=== PATIENT | male | born 1950 | race Hispanic/Latino ===

== ENCOUNTER 2016-11-30 18:04 | Emergency (ER) | payer MEDICAID, OTHER ==
[2016-11-30 18:05] VITALS: PULSE 62; BMI 25.8
[2016-11-30 18:21] VITALS: TEMP 97.6
[2016-11-30] MEDS ORDERED: Sodium Chloride 0.9% 1,000 ML IV STA (18:54)
--- NOTE | 2016-11-30 18:59 | ED PDOC ---
Arrival/HPI - General Chief Complaint: Lower Extremity Problem/Injury Time Seen by Provider: 11/30/16 18:31 Historian: Patient - History of Present Illness Narrative History of Present Illness (Text): 11/30/16 18:56 Patient with past medical history of stage IV lung cancer and has never sought any type of medical treatment, reports generalized weakness since yesterday causing him to trip and fall down the stairs prior to arrival. Patient is concerned that he may have injured his legs. Otherwise: (-) lightheadedness, (- ) dizziness, (-) headache, (-) head injury, (-) LOC, (-) neck pain / back pain, (-) other injury, (-) tinnitus, (-) hearing loss, (-) chest pain, (-) dyspnea, ( -) fever, (-) vomiting, (-) diarrhea, (-) syncope, (-) urinary symptoms, (-) GI bleeding. Of note, patient admits that he is a chronic alcoholic and drinks daily, last alcohol was today. ILDA Doyle Past Medical History - Provider Review Nursing Documentation Reviewed: Yes - Infectious Disease Hx of Infectious Diseases: None - Tetanus Immunization Tetanus Immunization: Unknown - Past Medical History Past Medical History: No Previous - Cardiac Hx Cardiac Disorders: Yes Hx Angina: Yes Hx Cardiac Arrhythmia: Yes (A Fib.) Hx Congestive Heart Failure: Yes Hx Hypertension: Yes Hx Peripheral Edema: Yes Other/Comment: [place] [facility] with aortic valve replacement and conduit - Pulmonary Hx Respiratory Disorders: Yes Hx Bronchitis: Yes Hx Chronic Obstructive Pulmonary Disease (COPD): Yes - Neurological Hx Neurological Disorder: Yes HX Cerebrovascular Accident: Yes Hx Dizziness: Yes Hx Seizures: Yes (ETOH INDUCED) Hx Transient Ischemic Attacks (TIA): Yes Other/Comment: subdural hematoma - HEENT Hx HEENT Disorder: No (WEARS RX GLASSES) - Renal Hx Renal Disorder: Yes Hx Renal Cancer: Yes - Endocrine/Metabolic Hx Endocrine Disorders: No - Hematological/Oncological Hx Blood Disorders: Yes (blood transfusion) Hx Anemia: Yes Hx Cancer: Yes (RENAL CA-NEPHRECTOMY, left) Other/Comment: left kidney tumor - Integumentary Hx Dermatological Disorder: Yes (Biopsy of skin lesion on face) - Musculoskeletal/Rheumatological Hx Falls: Yes (in the past) - Gastrointestinal Hx Gastrointestinal Disorders: Yes (gi bleed) Hx Gastroesophageal Reflux: Yes Other/Comment: diverticulosis, colon polyps endo 10/14/15 - Genitourinary/Gynecological Hx Genitourinary Disorders: Yes (LEFT KIDNEY TUMOR) Hx Prostate Problems: Yes Other/Comment: scrotal hematoma, left hydrocelectomy, pt had large hydrocele, denies voiding problems - Psychiatric Hx Psychophysiologic Disorder: Yes (SMOKING CIGARETTES,BEER DRINKER,H/O RX DRUG ABUSE) Hx Anxiety: Yes Hx Emotional Abuse: No Hx Physical Abuse: No Hx Substance Use: No - Past Surgical History Past Surgical History: Non-Contributing - Surgical History Hx Cardiac Catheterization: Yes Hx Valve Replacement: Yes (aortic) - Anesthesia Hx Anesthesia: Yes Hx Anesthesia Reactions: No Hx Malignant Hyperthermia: No - Suicidal Assessment Feels Threatened In Home Enviroment: No Family/Social History - Physician Review Nursing Documentation Reviewed: Yes Family/Social History: No Known Family HX Smoking Status: Heavy Smoker > 10 Cigarettes Daily Hx Alcohol Use: Yes (beer social) Hx Substance Use: No Hx Substance Use Treatment: No Allergies/Home Meds Allergies/Adverse Reactions: Allergies acetaminophen Allergy (Verified 11/30/16 18:10) ITCHING iodine Allergy (Verified 11/30/16 18:10) ITCHING shellfish derived Allergy (Verified 11/30/16 18:10) RASH Home Medications: Home Meds Medication Instructions Recorded Confirmed Simvastatin [Zocor] 40 mg PO DAILY #0 10/11/15 11/30/16 Review of Systems - Review of Systems Constitutional: Normal, Fatigue (generalized weakness). absent: Weight Change, Fevers Respiratory: Normal. absent: SOB, Cough, Sputum Cardiovascular: Normal. absent: Chest Pain, Palpitations, Edema Gastrointestinal: Normal, Diarrhea (chronic diarrhea). absent: Abdominal Pain, Stool Changes Musculoskeletal: Normal. absent: Arthralgias, Back Pain, Neck Pain Skin: Normal. absent: Rash, Pruritis, Skin Lesions Neurological: Normal. absent: Headache, Dizziness, Focal Weakness Psychiatric: Normal. absent: Anxiety, Depression, Suicidal Ideation Physical Exam - Physical Exam Narrative Physical Exam (Text): 11/30/16 19:00 GENERAL APPEARANCE: Patient is awake, alert, oriented x 3, in no acute distress. (+) Strong odor of etoh. SKIN: Warm, dry; (-) cyanosis. EYES: (-) conjunctival pallor. ENMT: Mucous membranes dry. NECK: (-) tenderness, (-) stiffness, (-) lymphadenopathy, (-) JVD. CHEST AND RESPIRATORY: (-) rash, (-) chest wall tenderness. Lungs: (-) rales , (-) rhonchi, (-) wheezes, (-) rub; breath sounds equal bilaterally. HEART AND CARDIOVASCULAR: (-) irregularity; (-) murmur, (-) gallop, (-) rub. ABDOMEN AND GI: Soft; (-) distention, (-) tenderness, (-) palpable pulsatile mass. EXTREMITIES: (-) tenderness, (-) deformity; (-) edema, (-) calf tenderness. (+) FROM, (+) distal pulses. NEURO AND PSYCH: Mental status as above. Cranial nerves grossly intact; strength symmetric. 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 Plan: -- Labs -- IV fluids -- Urinalysis -- EKG -- CXR -- Reassess and disposition 11/30/16 21:29 EKG: A fib at 55 bpm (-) acute ST changes, compared to prior EKGs which showed A fib on 03/2016. CXR: NAD, as read by PA. Labs reviewed, Na is 131, NS bolus IV given, rest of the labs are wnl. On re-evaluation, patient remains awake, alert and oriented x3, in no acute distress. Patient reports no fever, chills, SOB, chest pain, abdominal pain, N/V /D. States that he feels much better. VS: P 64 BP 123/75 R 18. Diagnostic results d/w the patient in great detail. Based on history, exam and diagnostic results plan will be for outpatient follow -up. Patient able to stand and ambulate with a steady gait. Patient states he fully agrees with and understands discharge instructions. States that he agrees with the plan and disposition. Verbalized and repeated discharge instructions and plan. I have given the patient opportunity to ask any additional questions. Follow up with primary care physician in 1-2 days without fail. Return to the emergency room at any time for any new or worsening symptoms. - Lab Interpretations Microbiology Results: Microbiology Results 11/30/16 18:58 Urine Urine Culture - Preliminary No growth. Lab Results: 11/30/16 19:38 11/30/16 19:38 Lab Results 11/30/16 19:38: Sodium 131 L, Potassium 4.1, Chloride 100, Carbon Dioxide 21, Anion Gap 14, BUN 11, Creatinine 0.9, Est GFR ( Amer) > 60, Est GFR (Non- Af Amer) > 60, Random Glucose 94, Calcium 8.3 L, Total Bilirubin 0.4, AST 40, ALT 46, Alkaline Phosphatase 61, Total Protein 6.9, Albumin 4.1, Globulin 2.8, Albumin/Globulin Ratio 1.5 11/30/16 19:38: WBC 5.3 D, RBC 3.94, Hgb 12.9 L, Hct 35.3 L, MCV 89.6, MCH 32.7 , MCHC 36.5, RDW 14.1, Plt Count 195, MPV 9.2, Gran % 64.6, Lymph % (Auto) 24.5 , [place] % (Auto) 9.2 H, Eos % (Auto) 1.5, Baso % (Auto) 0.2, Gran # 3.45, Lymph # 1.3, [place] # 0.5, Eos # 0.1, Baso # 0.01 11/30/16 18:58: Urine Color Yellow, Urine Appearance Clear, Urine pH 6.0, Ur Specific [place] 1.010, Urine Protein Trace H, Urine Glucose (UA) Negative, Urine Ketones Negative, Urine Blood Trace-lysed H, Urine Nitrate Negative, Urine Bilirubin Negative, Urine Urobilinogen 0.2, Ur Leukocyte Esterase Negative , Urine RBC 0 - 2, Urine WBC 0 - 2, Ur Epithelial Cells None, Urine Bacteria Small - RAD Interpretation Radiology Orders: 11/30/16 18:53 CHEST TWO VIEWS (PA/LAT) [RAD] Stat - Medication Orders Current Medication Orders: Discontinued Medications Sodium Chloride (Sodium Chloride 0.9%) 1,000 mls @ 1,000 mls/hr IV .Q1H STA Stop: 11/30/16 19:53 Last Admin: 11/30/16 20:40 Dose: 1,000 mls/hr - PA / TRUCK TRAILER FINAL INSPECTOR / Resident Statement / has reviewed & agrees with the documentation as recorded. Disposition/Present on Arrival - Present on Arrival Any Indicators Present on Arrival: No History of DVT/PE: No History of Uncontrolled Diabetes: No Urinary Catheter: No History of Decub. Ulcer: No History Surgical Site Infection Following: None - Disposition Have Diagnosis and Disposition been Completed?: Yes Diagnosis: Weakness, Dehydration, Fall, Alcohol intoxication Disposition: HOME/ ROUTINE Disposition Time: 21:00 Patient Plan: Discharge Condition: GOOD Discharge Instructions (ExitCare): Weakness (ED) Print Language: [place] Additional Instructions: Thank you for letting us take care of you today. You were treated for generalized weakness, fall, dehydration, alcohol intoxication. The emergency medical care you received today was directed at your acute symptoms. Return to the Emergency Department if your symptoms worsen, do not improve, or if you have any other problems. Please contact your doctor in 2 days for re-evaluation and follow up. Bring any paperwork you were given at discharge with you along with any medications you are taking to your follow up visit. Our treatment cannot replace ongoing medical care by a primary care provider (PCP) outside of the emergency department. Thank you for allowing the [facility] team to be part of your care today.
[2016-11-30 19:10] LABS: URINE BILIRUBIN NEGATIVE (NEGATIVE); URINE BLOOD TRACE-LYSED (NEGATIVE); URINE GLUCOSE (UA) NEGATIVE (NEGATIVE); URINE KETONE NEGATIVE (NEGATIVE); URINE LEUKOCYTE ESTERASE NEGATIVE Leu/uL (NEGATIVE); URINE PROTEIN TRACE mg/dL (<30 mg/dL); URINE UROBILINOGEN 0.2 E.U./dL (<1 E.U./dL)
[2016-11-30 19:11] LABS: URINE APPEARANCE CLEAR (CLEAR); URINE COLOR YELLOW (YELLOW)
[2016-11-30 19:33] LABS: URINE BACTERIA SMALL (NEG); URINE RBC 0 - 2 /hpf (0-2); URINE WBC 0 - 2 /hpf (0-6)
[2016-11-30 19:44] LABS: ADD MANUAL DIFF? NO
[2016-11-30 19:56] LABS: ALB/GLOB RATIO 1.5 (1.1-1.8); ALKALINE PHOSPHATASE 61 U/L (38-133); ALT/SGPT 46 U/L (7-56); AST/SGOT 40 U/L (15-59); BILIRUBIN,TOTAL 0.4 mg/dL (0.2-1.3); BLOOD UREA NITROGEN 11 mg/dL (7-21); CALCIUM 8.3 mg/dL (8.4-10.5); CARBON DIOXIDE 21 mmol/L (21-33); CHLORIDE 100 mmol/L (98-107); GFR AFRICAN-AMERICAN > 60; GLUCOSE,RANDOM 94 mg/dL (70-110); POTASSIUM 4.1 mmol/L (3.6-5.0); SODIUM 131 mmol/L (132-148); TOTAL PROTEIN 6.9 g/dL (5.8-8.3)
[2016-11-30 20:19] LABS: BASO # 0.01 K/mm3 (0.0-2.0); BASO % 0.2 % (0.0-3.0); EOS # 0.1 (0.0-0.7); EOS % 1.5 % (1.5-5.0); GRAN # 3.45 (1.4-6.5); GRAN % 64.6 % (50.0-68.0); HEMATOCRIT 35.3 % (42.0-52.0); LYMPH # 1.3 (1.2-3.4); LYMPH % 24.5 % (22.0-35.0); MEAN CELL VOLUME 89.6 fL (80.0-105.0); MEAN CORPUSCULAR HEMOGLOBIN 32.7 pg (25.0-35.0); MEAN CORPUSCULAR HGB CONC 36.5 g/dl (31.0-37.0); MEAN PLATELET VOLUME 9.2 fl (7.0-11.0); MONO # 0.5 (0.1-0.6); MONO % 9.2 % (1.0-6.0); PLATELET COUNT 195 10^3/uL (120.0-450.0); RED CELL DISTRIBUTION WIDTH 14.1 % (11.5-14.5); WHITE BLOOD COUNT 5.3 10^3/ul (4.5-11.0)
[2016-12-01 01:41] VITALS: RESP 16
[2016-12-01 04:19] VITALS: BP 146/87; PULSE 88; O2SAT 94
--- NOTE | 2016-12-01 10:03 | RAD ---
HISTORY: weakness COMPARISON: No prior. TECHNIQUE: Chest PA and lateral FINDINGS: LUNGS: No active pulmonary disease. PLEURA: No significant pleural effusion identified. No pneumothorax apparent. CARDIOVASCULAR: Normal. OSSEOUS STRUCTURES: No significant abnormalities. VISUALIZED UPPER ABDOMEN: Normal. OTHER FINDINGS: None. IMPRESSION: No active disease.
--- NOTE | 2016-12-01 15:52 | CARD ---
APPROVED REPORT EKG Measurement Heart [id number] <Conclusion> Atrial fibrillation with slow ventricular response Nonspecific intraventricular conduction delay T wave abnormality, consider lateral ischemia or digitalis effect Abnormal ECG
== END 2016-12-01 04:20 | disposition home or self-care (01) ==
LOC: ED 18:04
DX: E86.0 Dehydration (principal); R53.1 Weakness; F10.129 Alcohol abuse with intoxication, unspecified; Y90.9 Presence of alcohol in blood, level not specified; W10.8XXA Fall (on) (from) other stairs and steps, initial encounter; Y93.89 Activity, other specified; Y92.89 Other specified places as the place of occurrence of the external cause; Z85.118 Personal history of other malignant neoplasm of bronchus and lung; I10 Essential (primary) hypertension; F17.210 Nicotine dependence, cigarettes, uncomplicated
CPT/HCPCS: 71020; 80053; 81001; 85025; 87086; 93005; 99285; J7040

== ENCOUNTER 2017-03-04 10:54 | Emergency (ER) | payer MEDICAID, OTHER ==
[2017-03-04 10:55] VITALS: PULSE 62
[2017-03-04 10:59] VITALS: BMI 26.5
[2017-03-04 11:02] VITALS: RESP 18; TEMP 98.3
[2017-03-04] MEDS ORDERED: Iohexol 240 (50 ml) ONE (11:43)
--- NOTE | 2017-03-04 12:01 | ED PDOC ---
Arrival/HPI - General Historian: Patient <Lobito Peterson - Last Filed: 03/04/17 17:07> <Zachary Cam DO - Last Filed: 03/04/17 22:13> - General Chief Complaint: Groin Pain Time Seen by Provider: 03/04/17 11:00 - History of Present Illness Narrative History of Present Illness (Text): 03/04/17 11:51 66 M with PMHx pertinent for A-Fib on coumadin and Renal Cell CA s/p nephrectomy metastatic to the bones and lung presents s/p a fall with R sided, sharp, non-radiating, 6/10 inguinal pain of 3 days duration. Patient states that nothing makes the pain better or worse but that he hasn't taken anything for the pain at home. Patient further states that the pain started abruptly without a precipitating factor. Patient states that he does not remember when he fell, but denies hitting his head or losing consciousness, and states that the pain in his inguinal region precipitated his fall. Pt denies changes in bowels, hematuria, hematochezia, cp/sob/n/v/d/f/ch. Patient does state that he feels like he has not completely evacuated his bladder. Pt denies any further complaints. (Lobito Peterson Alessandropam) Past Medical History - Provider Review Nursing Documentation Reviewed: Yes - Infectious Disease Hx of Infectious Diseases: None - Tetanus Immunization Tetanus Immunization: Unknown - Past Medical History Past Medical History: No Previous - Cardiac Hx Cardiac Disorders: Yes Hx Angina: Yes Hx Cardiac Arrhythmia: Yes (A Fib.) Hx Congestive Heart Failure: Yes Hx Hypertension: Yes Hx Peripheral Edema: Yes Other/Comment: [place], cabd - aortic valve replacement and conduit - Pulmonary Hx Respiratory Disorders: Yes Hx Bronchitis: Yes Hx Chronic Obstructive Pulmonary Disease (COPD): Yes - Neurological Hx Neurological Disorder: Yes HX Cerebrovascular Accident: Yes Hx Dizziness: Yes Hx Seizures: Yes (ETOH INDUCED) Hx Transient Ischemic Attacks (TIA): Yes Other/Comment: subdural hematoma - HEENT Hx HEENT Disorder: No (WEARS RX GLASSES) - Renal Hx Renal Disorder: Yes Hx Renal Cancer: Yes - Endocrine/Metabolic Hx Endocrine Disorders: No - Hematological/Oncological Hx Blood Disorders: Yes (blood transfusion) Hx Anemia: Yes Hx Cancer: Yes (RENAL CA-NEPHRECTOMY, left) Other/Comment: left kidney tumor. LUNG CANCER - Integumentary Hx Dermatological Disorder: Yes (Biopsy of skin lesion on face) - Musculoskeletal/Rheumatological Hx Falls: Yes (in the past) - Gastrointestinal Hx Gastrointestinal Disorders: Yes (gi bleed) Hx Gastroesophageal Reflux: Yes Other/Comment: diverticulosis, colon polyps endo 10/14/15 - Genitourinary/Gynecological Hx Genitourinary Disorders: Yes (LEFT KIDNEY TUMOR) Hx Prostate Problems: Yes Other/Comment: scrotal hematoma, left hydrocelectomy, pt had large hydrocele, denies voiding problems - Psychiatric Hx Psychophysiologic Disorder: Yes (SMOKING CIGARETTES,BEER DRINKER,H/O RX DRUG ABUSE) Hx Anxiety: Yes Hx Emotional Abuse: No Hx Physical Abuse: No Hx Substance Use: No - Past Surgical History Past Surgical History: Non-Contributing - Surgical History Hx Cardiac Catheterization: Yes Hx Valve Replacement: Yes (aortic) - Anesthesia Hx Anesthesia: Yes Hx Anesthesia Reactions: No Hx Malignant Hyperthermia: No - Suicidal Assessment Feels Threatened In Home Enviroment: No <Lobito Peterson - Last Filed: 03/04/17 17:07> Family/Social History - Physician Review Nursing Documentation Reviewed: Yes Family/Social History: Unknown Family HX Smoking Status: Heavy Smoker > 10 Cigarettes Daily Hx Alcohol Use: Yes (beer social) Hx Substance Use: No Hx Substance Use Treatment: No <Lobito Peterson - Last Filed: 03/04/17 17:07> Allergies/Home Meds <Lobito Peterson - Last Filed: 03/04/17 17:07> <Zachary Cam DO - Last Filed: 03/04/17 22:13> Allergies/Adverse Reactions: Allergies acetaminophen Allergy (Verified 03/04/17 10:59) ITCHING iodine Allergy (Verified 03/04/17 10:59) ITCHING shellfish derived Allergy (Verified 03/04/17 10:59) RASH Home Medications: Home Meds Medication Instructions Recorded Confirmed Simvastatin [Zocor] 40 mg PO DAILY #0 10/11/15 03/04/17 Review of Systems - Physician Review All systems were reviewed & negative as marked: Yes - Review of Systems Constitutional: Normal. absent: Fatigue, Weight Change, Fevers Eyes: Normal. absent: Vision Changes, Photophobia, Eye Pain ENT: Normal. absent: Hearing Changes, Tinnitus, TMJ Pain Respiratory: Normal. absent: SOB, Cough, Sputum Cardiovascular: Normal. absent: Chest Pain, Palpitations, Calf Pain, DELUCA Gastrointestinal: Normal. absent: Abdominal Pain, Diarrhea, Nausea, Vomiting Genitourinary Male: Urinary Output Changes. absent: Dysuria, Frequency, Hematuria (Patient is complaining of L sided inguinal pain, states he feels like he cannot completely evacuate his bladder) Musculoskeletal: Arthralgias (Patient states he has chronic pain in his right hip), Joint Swelling. absent: Back Pain Skin: Normal. absent: Rash, Pruritis, Skin Lesions Neurological: Normal. absent: Headache, Dizziness, Focal Weakness Endocrine: Normal. absent: Diaphoresis, Polyuria Hemo/Lymphatic: Normal. absent: Adenopathy, Easy Bleeding, Easy Bruising Psychiatric: Normal. absent: Depression, Suicidal Ideation <Lobito Petersonpam - Last Filed: 03/04/17 17:07> Physical Exam Vital Signs Reviewed: Yes Temperature: Afebrile Blood Pressure: Hypertensive Pulse: Regular Respiratory Rate: Normal Appearance: Positive for: Well-Appearing, Non-Toxic, Comfortable Pain Distress: None Mental Status: Positive for: Alert and Oriented X 3 - Systems Exam Head: Present: Atraumatic, Normocephalic. No: Tenderness, Contusion Pupils: Present: PERRL. No: Sluggish, Non-Reactive, Pinpoint Extroacular Muscles: Present: EOMI. No: Gaze Palsy, Entrapment Conjunctiva: Present: Normal. No: Injected, Icteric Ears: Present: Normal, NORMAL TM. No: Erythema, TM Bulging Mouth: Present: Moist Mucous Membranes. No: Dry, Drooling Pharnyx: Present: Normal. No: ERYTHEMA, EXUDATE Nose (External): Present: Atraumatic. No: Abrasion, Contusion Neck: Present: Normal Range of Motion. No: Meningeal Signs, MIDLINE TENDERNESS Respiratory/Chest: Present: Clear to Auscultation, Good Air Exchange. No: Respiratory Distress, Accessory Muscle Use, Wheezes, Rales, Rhonchi Cardiovascular: Present: Regular Rate and Rhythm, Murmurs (Systolic click murmur - heard in all auscultatory areas), Normal S1, S2. No: Irregular Rhythm , Tachycardic, Bradycardic Abdomen: Present: Normal Bowel Sounds. No: Tenderness, Distention, Peritoneal Signs, Rebound, Guarding Back: Present: Normal Inspection. No: CVA Tenderness, Midline Tenderness Upper Extremity: Present: Normal Inspection, Normal ROM. No: Cyanosis, Edema Lower Extremity: Present: Normal Inspection, NORMAL PULSES, Normal ROM (pain limited ROM (pain in inguinal region on L side when raises L extremity)). No: Edema, CALF TENDERNESS Neurological: Present: GCS=15, CN II-XII Intact, Speech Normal Skin: Present: Warm, Normal Color. No: Rashes, Abrasion Lymphatic: No: Cervical Adenopathy, Axillary Adenopathy Psychiatric: Present: Alert, Oriented x 3, Normal Insight, Normal Concentration , Normal Affect. No: Suicidal Ideation, Homicidal Ideation <Lobito Peterson - Last Filed: 03/04/17 17:07> Medical Decision Making <Lobito Peterson - Last Filed: 03/04/17 17:07> - Lab Interpretations I have reviewed the lab results: Yes - RAD Interpretation Marine Biologist: Radiologist <Zachary Cam DO - Last Filed: 03/04/17 22:13> ED Course and Treatment: Assessed 03/04/17 11:50 Impression: 66 M PMHx pertinent for A-Fib on coumadin and Bone Mets presents with pain in L inguinal region precipitating a fall Plan - CT Head, CT Abd Pelvis with PO contrast, C-Spine XR - CMP, CBC, Coags - UA - Toradol for pain Reassessed 03/04/17 11:50 - UA is negative for UTI - CBC shows Hgb normal, HCT near baseline - Coags show INR subtherapeutic - CMP unremarkable Reassessed 03/04/17 13:39 - Pt feels better after Toradol, but is still having pain Reassessed 03/04/17 15:36 - CT Abd/Pelvis, CT Head, and XR C-Spine show no acute changes - Results of CT Abdomen d/w Dr. Doyle, PMD. Dr. Doyle stated that he and patient are both aware of the metastastic disease, and that patient is good to follow up. No inpatient intervention needed Reassessed 03/04/17 16:06 - Patient still complaining of pain - 1 mg of morphine given. Will send patient home with a cane. (Lobito Peterson) 03/04/17 In agreement with resident note, which includes further HPI details. Patient was seen and evaluated with resident, came up with plan and treatment together. (Zachary Cam DO) - Lab Interpretations Lab Results: 03/04/17 12:04 03/04/17 12:04 Lab Results 03/04/17 12:04: Sodium 139, Potassium 4.1, Chloride 104, Carbon Dioxide 25, Anion Gap 14, BUN 18, Creatinine 1.0, Est GFR ( Amer) > 60, Est GFR (Non- Af Amer) > 60, Random Glucose 111 H, Calcium 9.8, Total Bilirubin 0.8, AST 35, ALT 45, Alkaline Phosphatase 83, Total Protein 7.2, Albumin 4.4, Globulin 2.8, Albumin/Globulin Ratio 1.6 03/04/17 12:04: PT 14.9 H, INR 1.38 H, APTT 34.1 H 03/04/17 12:04: WBC 7.4 D, RBC 4.28, Hgb 14.0, Hct 39.2 L, MCV 91.6, MCH 32.7, MCHC 35.7, RDW 13.8, Plt Count 210, MPV 9.5, Gran % 74.7 H, Lymph % (Auto) 17.2 L, [place] % (Auto) 6.2 H, Eos % (Auto) 1.6, Baso % (Auto) 0.3, Gran # 5.50, Lymph # 1.3, [place] # 0.5, Eos # 0.1, Baso # 0.02 03/04/17 11:54: Urine Color Yellow, Urine Appearance Clear, Urine pH 6.0, Ur Specific [place] 1.015, Urine Protein Negative, Urine Glucose (UA) Negative, Urine Ketones Negative, Urine Blood Negative, Urine Nitrate Negative, Urine Bilirubin Negative, Urine Urobilinogen 0.2, Ur Leukocyte Esterase Negative - RAD Interpretation Radiology Orders: 03/04/17 11:34 ABD & PELVIS PO CONTRAST ONLY [CT] Stat HEAD W/O CONTRAST [CT] Stat 03/04/17 11:45 CERVICAL SPINE AP & LATERAL [RAD] Stat - Medication Orders Current Medication Orders: Discontinued Medications Iohexol (Omnipaque 240 (50 Ml)) Confirm Administered Dose 50 ml .ROUTE .[employer] ONE Stop: 03/04/17 11:44 Ketorolac Tromethamine (Toradol) 15 mg IM STAT STA Stop: 03/04/17 12:21 Last Admin: 03/04/17 12:43 Dose: 15 mg Re-Assess: KT Pain Assessment Document 03/04/17 13:43 HI (Rec: 03/04/17 15:38 [place] [facility] [id number] Pain Reassessment Is this a pain reassessment? Yes Sleep Is patient sleeping during reassessment? Yes Morphine Sulfate (Morphine) 1 mg IM STAT STA Stop: 03/04/17 15:52 Last Admin: 03/04/17 16:09 Dose: 1 mg <Lobito Peterson - Last Filed: 03/04/17 17:07> - PA / SOCIAL SERVICES COORDINATOR / Resident Statement ANGELIC has reviewed & agrees with the documentation as recorded. / has examined the patient and agrees with the treatment plan. - Scribe Statement The provider has reviewed the documentation as recorded by the Scribe <Zachary Cam DO - Last Filed: 03/04/17 22:13> - Scribe Statement 03/04/2017 Christianne Stewart Provider Scribe Attestation: All medical record entries made by the Scribe were at my direction and personally dictated by me. I have reviewed the chart and agree that the record accurately reflects my personal performance of the history, physical exam, medical decision making, and the department course for this patient. I have also personally directed, reviewed, and agree with the discharge instructions and disposition. (Zachary Cam DO) Disposition/Present on Arrival - Present on Arrival Any Indicators Present on Arrival: No History of DVT/PE: No History of Uncontrolled Diabetes: No Urinary Catheter: No History of Decub. Ulcer: No History Surgical Site Infection Following: None - Disposition Have Diagnosis and Disposition been Completed?: Yes Disposition Time: 16:45 <Lobito Peterson - Last Filed: 03/04/17 17:07> - Disposition Disposition Time: 15:00 <Zachary Cam DO - Last Filed: 03/04/17 22:13> - Disposition Diagnosis: Inguinal pain Disposition: HOME/ ROUTINE Condition: IMPROVED Additional Instructions: Mr. Sparrow, thank you for letting us take care of you today. Your providers were Dr. Cam and Dr. Peterson. You were treated for inguinal pain. The emergency medical care you received today was directed at your acute symptoms. If you were prescribed any medication, please fill it and take as directed. It may take several days for your symptoms to resolve. Return to the Emergency Department if your symptoms worsen, do not improve, or if you have any other problems. Please contact your doctor or call one of the physicians/clinics you have been referred to that are listed on the Patient Visit Information form that is included in your discharge packet. Bring any paperwork you were given at discharge with you along with any medications you are taking to your follow up visit. Our treatment cannot replace ongoing medical care by a primary care provider (PCP) outside of the emergency department. Thank you for allowing the [facility] team to be part of your care today. If you had an X-Ray or CT scan: A Radiologist will review the ED reading if any change in treatment is needed we will contact you. If you had a blood, urine, or wound culture: It will take several days for the results, if any change in treatment is needed we will contact you. If you had an STI test: It will take 48 hours for the results. Please call after 1 week if you have not heard back. Referrals: Andrzej Doyle JD, MD [Primary Care Provider] - Follow up with primary Forms: [employer] (Iranian)
[2017-03-04 12:05] LABS: URINE BILIRUBIN NEGATIVE (NEGATIVE); URINE BLOOD NEGATIVE (NEGATIVE); URINE GLUCOSE (UA) NEGATIVE (NEGATIVE); URINE KETONE NEGATIVE (NEGATIVE); URINE LEUKOCYTE ESTERASE NEGATIVE Leu/uL (NEGATIVE); URINE PROTEIN NEGATIVE mg/dL (<30 mg/dL); URINE UROBILINOGEN 0.2 E.U./dL (<1 E.U./dL)
[2017-03-04 12:06] LABS: URINE APPEARANCE CLEAR (CLEAR); URINE COLOR YELLOW (YELLOW)
[2017-03-04 12:09] LABS: BASO # 0.02 K/mm3 (0.0-2.0); BASO % 0.3 % (0.0-3.0); EOS # 0.1 (0.0-0.7); EOS % 1.6 % (1.5-5.0); GRAN # 5.5 (1.4-6.5); GRAN % 74.7 % (50.0-68.0); HEMATOCRIT 39.2 % (42.0-52.0); LYMPH # 1.3 (1.2-3.4); LYMPH % 17.2 % (22.0-35.0); MEAN CELL VOLUME 91.6 fl (80.0-105.0); MEAN CORPUSCULAR HEMOGLOBIN 32.7 pg (25.0-35.0); MEAN CORPUSCULAR HGB CONC 35.7 g/dl (31.0-37.0); MEAN PLATELET VOLUME 9.5 fl (7.0-11.0); MONO # 0.5 (0.1-0.6); MONO % 6.2 % (1.0-6.0); RED CELL DISTRIBUTION WIDTH 13.8 % (11.5-14.5); WHITE BLOOD COUNT 7.4 10^3/ul (4.5-11.0)
[2017-03-04 12:19] LABS: INR 1.38 (0.93-1.08); PARTIAL THROMBOPLASTIN TIME 34.1 Seconds (23.7-30.8)
[2017-03-04 12:38] LABS: ALB/GLOB RATIO 1.6 (1.1-1.8); ALKALINE PHOSPHATASE 83 U/L (38-126); ALT/SGPT 45 U/L (7-56); AST/SGOT 35 U/L (17-59); BILIRUBIN,TOTAL 0.8 mg/dL (0.2-1.3); BLOOD UREA NITROGEN 18 mg/dL (7-21); CALCIUM 9.8 mg/dL (8.4-10.5); CARBON DIOXIDE 25 mmol/L (21-33); CHLORIDE 104 mmol/L (98-107); GFR AFRICAN-AMERICAN > 60; GLUCOSE,RANDOM 111 mg/dL (70-110); POTASSIUM 4.1 mmol/L (3.6-5.0); SODIUM 139 mmol/L (132-148); TOTAL PROTEIN 7.2 g/dL (5.8-8.3)
--- NOTE | 2017-03-04 14:10 | CT ---
PROCEDURE: CT HEAD WITHOUT CONTRAST. HISTORY: s/p fall COMPARISON: Noncontrast head CT performed 04/09/16 TECHNIQUE: Axial computed tomography images were obtained through the head/brain without intravenous contrast. Radiation dose: Total exam DLP = 824.74 mGy-cm. This CT exam was performed using one or more of the following dose reduction techniques: Automated exposure control, adjustment of the mA and/or kV according to patient size, and/or use of iterative reconstruction technique. FINDINGS: HEMORRHAGE: No intracranial hemorrhage. BRAIN: Diffuse atrophy with prominence of the ventricles and sulci noted. No mass effect or edema. Atherosclerotic calcifications. Scattered periventricular and subcortical white matter hypodensities, which are nonspecific, but often seen with chronic microvascular ischemic disease. Please note that MRI with diffusion imaging is more sensitive in the detection of acute ischemic event. VENTRICLES: No hydrocephalus. CALVARIUM: Unremarkable. PARANASAL SINUSES: Mucosal thickening and mucosal polyp/retention cysts within the right maxillary sinus. MASTOID AIR CELLS: Unremarkable as visualized. No inflammatory changes. OTHER FINDINGS: None. IMPRESSION: Generalized atrophy. Nonspecific white matter changes. Mucosal thickening and mucosal polyp/retention cysts within the right maxillary sinus.
--- NOTE | 2017-03-04 14:36 | CT ---
PROCEDURE: CT Abdomen and Pelvis without IV contrast. HISTORY: Hx RCC, inguinal pain COMPARISON: Noncontrast CT of the abdomen and pelvis performed 10/15/15 TECHNIQUE: Contiguous axial images of the abdomen and pelvis. Oral contrast was administered. No IV contrast given. Coronal and Sagittal reformats generated and reviewed. Radiation dose: Total exam DLP = 870.9 mGy-cm. This CT exam was performed using one or more of the following dose reduction techniques: Automated exposure control, adjustment of the mA and/or kV according to patient size, and/or use of iterative reconstruction technique. FINDINGS: There is limited evaluation of the solid organs without the administration of IV contrast. LOWER THORAX: No visible consolidation, pleural effusion, or pneumothorax. Numerous bilateral lower lobe pulmonary nodules measuring up to 9 mm at the left lung base (series 4, image 15) and 13 mm at the right lower lobe (series 4, image 1). Small hiatal hernia/distal esophageal wall thickening. LIVER: Innumerable hypodense lesions throughout the liver all several of which appear consistent with cysts. The remainder of the too small to characterize. Coarse calcification the right hepatic lobe common likely granuloma. GALLBLADDER AND BILE DUCTS: Unremarkable unenhanced appearance. PANCREAS: Unremarkable unenhanced appearance. SPLEEN: Unremarkable unenhanced appearance. ADRENALS: Heterogeneous 7.7 x 4.4 cm lobulated suprarenal retroperitoneal mass. The right adrenal gland is not visualized. Heterogeneous 3.4 x 2.9 cm suprarenal soft tissue mass. Mildly nodular left adrenal gland. KIDNEYS AND URETERS: No hydronephrosis or obstructing calculus on the right. 11 mm exophytic right renal lesion measures approximately 20 HU, indeterminate. Left nephrectomy. BLADDER: The urinary bladder appears unremarkable. REPRODUCTIVE: The prostate gland measures approximately 3.6 x 5.3 cm. APPENDIX: The appendix appears within normal limits of caliber. No secondary signs of acute appendicitis. BOWEL: The stomach is nondistended. The bowel loops appear within normal limits of caliber without evidence of intestinal obstruction. PERITONEUM: No significant free fluid. No definite free air. LYMPH NODES: Retroperitoneal adenopathy measuring up to 1.4 cm on the left. VASCULATURE: Atherosclerotic calcifications. No aortic aneurysm. BONES: Osseous destruction of the left sacrum and right acetabulum with soft tissue masses present. OTHER FINDINGS: 2.7 cm fat containing left paraumbilical fat containing hernia. Fat containing right inguinal hernia. IMPRESSION: Findings as above worrisome for progression of metastatic disease above and below the hemidiaphragm including numerous pulmonary nodules measuring up to 13 mm on the right and 9 mm on the left; 7.7 x 4.4 cm and 2.9 x 3.4 cm lobulated heterogeneous suprarenal soft tissue masses within the retroperitoneum ; retroperitoneal adenopathy measuring up to 1.4 cm on the left; and osseous destruction of the left sacrum and right acetabulum with soft tissue masses. Additionally numerous low-density lesions are noted throughout the liver compatible with cysts. However most of these hypodensities are too small to characterize in metastatic lesions cannot be excluded. 11 mm exophytic right renal lesion measures approximately 20 HU, indeterminate. Additional findings as above.
--- NOTE | 2017-03-04 14:50 | RAD ---
PROCEDURE: Cervical Spine Radiographs. HISTORY: Pain. COMPARISON: None available. FINDINGS: Cervical spine is not adequately visualized beyond C6 on the lateral view. Straightening of the normal cervical lordosis may be related to muscle spasm or positioning. Osseous demineralization limits evaluation for acute fracture lines. Straightening of the normal cervical lordosis may be related to muscle spasm or positioning. Multilevel degenerative changes of the spine including osteophyte formation and intervertebral disc space narrowing. Facet hypertrophy. Visualized dens tip appears intact. No acute displaced fracture identified. No prevertebral soft tissue swelling. Median sternotomy wires. Partially visualized ectatic aorta. Bilateral calcifications within the soft tissues of the neck likely related to carotid arteries. IMPRESSION: Cervical spine is not adequately visualized beyond C6 on the lateral view. Straightening of the normal cervical lordosis may be related to muscle spasm or positioning. Osseous demineralization. Multilevel degenerative changes. Additional findings as above.
[2017-03-04] MEDS ORDERED: Morphine 2 mg/ml ISec IM STA (15:51)
[2017-03-04 18:51] VITALS: BP 124/71; PULSE 64; O2SAT 98
== END 2017-03-04 16:49 | disposition home or self-care (01) ==
LOC: ED 10:54
DX: R10.30 Lower abdominal pain, unspecified (principal); I48.91 Unspecified atrial fibrillation; Z79.01 Long term (current) use of anticoagulants
CPT/HCPCS: 70450; 72040; 74176; 80053; 81003; 85025; 85610; 85730; 96372; 99283; J1885; J2270; Q9966

== ENCOUNTER 2017-03-14 10:51 | Inpatient (IN) | payer OTHER ==
[2017-03-14 10:52] VITALS: PULSE 62; BMI 26.5
[2017-03-14] MEDS ORDERED: Morphine 4 mg/ml ISec IVP STA (11:29)
--- NOTE | 2017-03-14 11:30 | ED PDOC ---
Arrival/HPI - General Chief Complaint: Groin Pain Time Seen by Provider: 03/14/17 11:21 Historian: Patient - History of Present Illness Narrative History of Present Illness (Text): 03/14/17 11:30 A 66 year old male, whose past medical history includes atrial fibrillation on Coumadin, aortic valve replacement, CHF and renal cancer with left nephrectomy, presents to the emergency department complaining of left lower abdominal and groin pain for the past few days. Patient reports his pain is worse with movement and ambulation. Patient denies any fever, chills, nausea, vomiting, dysuria, back pain, chest pain, shortness of breath or any other complaints. PMD: Dr. Doyle Time/Duration: Other (few days) Symptom Course: Unchanged Quality: Other Context: Home Past Medical History - Infectious Disease Hx of Infectious Diseases: None - Tetanus Immunization Tetanus Immunization: Unknown - Past Medical History Past Medical History: No Previous - Cardiac Hx Cardiac Disorders: Yes Hx Angina: Yes Hx Cardiac Arrhythmia: Yes (A Fib.) Hx Congestive Heart Failure: Yes Hx Hypertension: Yes Hx Peripheral Edema: Yes Other/Comment: ND, cabd - aortic valve replacement and conduit - Pulmonary Hx Respiratory Disorders: Yes Hx Bronchitis: Yes Hx Chronic Obstructive Pulmonary Disease (COPD): Yes Hx Lung Cancer: Yes - Neurological Hx Neurological Disorder: Yes HX Cerebrovascular Accident: Yes Hx Dizziness: Yes Hx Seizures: Yes (ETOH INDUCED) Hx Transient Ischemic Attacks (TIA): Yes Other/Comment: subdural hematoma - HEENT Hx HEENT Disorder: No (WEARS RX GLASSES) - Renal Hx Renal Disorder: Yes Hx Renal Cancer: Yes Other/Comment: h/o Kidney Ca, s/p nephrectomy - Endocrine/Metabolic Other/Comment: adrenal problem. hyperglycemia - Hematological/Oncological Hx Blood Disorders: Yes (blood transfusion) Hx Anemia: Yes Hx Cancer: Yes (RENAL CA-NEPHRECTOMY, left) Other/Comment: left kidney tumor. LUNG CANCER - Integumentary Hx Dermatological Disorder: Yes (Biopsy of skin lesion on face) - Musculoskeletal/Rheumatological Hx Falls: Yes (in the past) - Gastrointestinal Hx Gastrointestinal Disorders: Yes (gi bleed) Hx Gastroesophageal Reflux: Yes Other/Comment: diverticulosis, colon polyps endo 10/14/15 - Genitourinary/Gynecological Hx Genitourinary Disorders: Yes (LEFT KIDNEY TUMOR) Hx Prostate Problems: Yes Other/Comment: scrotal hematoma, left hydrocelectomy, pt had large hydrocele, denies voiding problems - Psychiatric Hx Psychophysiologic Disorder: Yes (SMOKING CIGARETTES,BEER DRINKER,H/O RX DRUG ABUSE) Hx Anxiety: Yes Hx Emotional Abuse: No Hx Physical Abuse: No Hx Substance Use: No - Past Surgical History Past Surgical History: Non-Contributing - Surgical History Hx Cardiac Catheterization: Yes Hx Valve Replacement: Yes (aortic) - Anesthesia Hx Anesthesia: Yes Hx Anesthesia Reactions: No Hx Malignant Hyperthermia: No - Suicidal Assessment Feels Threatened In Home Enviroment: No Family/Social History - Physician Review Nursing Documentation Reviewed: Yes Family/Social History: No Known Family HX Smoking Status: Heavy Smoker > 10 Cigarettes Daily Hx Alcohol Use: Yes (beer social) Hx Substance Use: No Hx Substance Use Treatment: No Allergies/Home Meds Allergies/Adverse Reactions: Allergies acetaminophen Allergy (Verified 03/04/17 10:59) ITCHING iodine Allergy (Verified 03/04/17 10:59) ITCHING shellfish derived Allergy (Verified 03/04/17 10:59) RASH Home Medications: Home Meds Medication Instructions Recorded Confirmed Simvastatin [Zocor] 40 mg PO DAILY #0 10/11/15 03/14/17 Review of Systems - Physician Review All systems were reviewed & negative as marked: Yes - Review of Systems Constitutional: absent: Night Sweats Cardiovascular: absent: Chest Pain Gastrointestinal: Abdominal Pain (left abdominal and groin pain). absent: Nausea, Vomiting Genitourinary Male: absent: Dysuria Musculoskeletal: absent: Back Pain Physical Exam Vital Signs Reviewed: Yes Vital Signs Temp Pulse Resp BP Pulse Ox 03/14/17 17:19 98.0 F 70 16 99 03/14/17 15:10 67 17 118/75 98 03/14/17 13:00 62 17 120/75 98 03/14/17 11:14 98 F 66 16 117/60 95 Temperature: Afebrile Blood Pressure: Normal Pulse: Regular Respiratory Rate: Normal Appearance: Positive for: Well-Appearing, Non-Toxic, Comfortable Pain Distress: None Mental Status: Positive for: Alert and Oriented X 3 - Systems Exam Head: Present: Atraumatic, Normocephalic Pupils: Present: PERRL Extroacular Muscles: Present: EOMI Conjunctiva: Present: Normal Mouth: Present: Moist Mucous Membranes Pharnyx: No: ERYTHEMA, EXUDATE, TONSILS ENLARGED Neck: Present: Normal Range of Motion Respiratory/Chest: Present: Clear to Auscultation, Good Air Exchange. No: Respiratory Distress, Accessory Muscle Use Cardiovascular: Present: Regular Rate and Rhythm, Normal S1, S2. No: Murmurs Abdomen: Present: Normal Bowel Sounds, Hernias (Ventral Hernia, Inguinal hernia worse with movement). No: Tenderness (LLQ tenderness to palpation), Distention , Peritoneal Signs Back: Present: Normal Inspection Upper Extremity: Present: Normal Inspection. No: Cyanosis, Edema Lower Extremity: Present: Normal Inspection. No: Edema Neurological: Present: GCS=15, CN II-XII Intact, Speech Normal Skin: Present: Warm, Dry, Normal Color. No: Rashes Psychiatric: Present: Alert, Oriented x 3, Normal Insight, Normal Concentration Medical Decision Making ED Course and Treatment: 03/14/17 11:30 Impression: A 66 year old male with left abdominal and groin pain. On exam, LLQ tenderness, ventral and inguinal hernia notes, worse with movement. Differential Diagnosis included but are not limited to: Hernia r/o Incarceration vs SBO Plan: -- Abdomen and pelvis CT -- Labs -- Urine culture and Urinalysis -- Morphine -- Reassess and disposition Prior Visits: Notes and results from previous visits were reviewed. Patient last seen in the ED on 03/04/17 for inguinal pain and discharged home. Progress Notes: Report Date : 03/14/2017 14:51:16 PROCEDURE: CT Abdomen and Pelvis without intravenous contrast Dictator : Zachary Rick MD IMPRESSION: 1. Early developing mid to distal small bowel obstruction is questioned versus developing ileus. No ascites or free air. No extravasated oral contrast material. 2. Multifocal metastases identified at the left greater than right lung bases, bilateral adrenal glands, pelvic bones and proximal left femur as discussed above. 3. Multifocal stable hepatic cysts. 4. Prior left nephrectomy. 5. Lesser additional findings as discussed in findings. 03/14/17 15:[address] Becerril, states to speak with surgical pathologist. Recommends NG tube placement. I discussed the case with the Toll Test Worker Joseline who is working with Dr. Becerril. She will evaluate patient and discuss case with Dr. Becerril. She was advised of the request by him for an NGT. - Lab Interpretations Lab Results: 03/14/17 12:00 03/14/17 12:00 Lab Results 03/14/17 12:00: Blood Type O POSITIVE, Antibody Screen Negative, BBK History Checked Patient has bt 03/14/17 12:00: pO2 44, VBG pH 7.37, VBG pCO2 47.0, VBG HCO3 27.2, VBG Total CO2 28.6 H, VBG O2 Sat (Calc) 83.3 H, VBG Base Excess 1.3, VBG Potassium 4.1, Sodium 136.0, Chloride 104.0, Glucose 101, Lactate 0.9, FiO2 21.0, Venous Blood Potassium 4.1 03/14/17 12:00: Sodium 141, Chloride 104, Potassium 4.2, Carbon Dioxide 27, Anion Gap 14, BUN 18, Creatinine 1.1, Est GFR ( Amer) > 60, Est GFR (Non- Af Amer) > 60, Random Glucose 97, Calcium 9.7, Total Bilirubin 0.6, AST 33, ALT 46, Alkaline Phosphatase 84, Total Protein 6.9, Albumin 4.2, Globulin 2.7, Albumin/Globulin Ratio 1.6 03/14/17 12:00: PT 35.4 H*, INR 3.28 H, APTT 39.9 H 03/14/17 12:00: WBC 7.3, RBC 4.12, Hgb 13.0 L, Hct 37.9 L, MCV 92.0, MCH 31.6, MCHC 34.3, RDW 13.6, Plt Count 221, MPV 9.9, Gran % 75.9 H, Lymph % (Auto) 15.6 L, [place] % (Auto) 6.4 H, Eos % (Auto) 2.0, Baso % (Auto) 0.1, Gran # 5.56, Lymph # 1.1 L, [place] # 0.5, Eos # 0.2, Baso # 0.01 03/14/17 11:35: Urine Color Yellow, Urine Appearance Clear, Urine pH 6.0, Ur Specific [place] 1.020, Urine Protein Negative, Urine Glucose (UA) Negative, Urine Ketones Negative, Urine Blood Negative, Urine Nitrate Negative, Urine Bilirubin Negative, Urine Urobilinogen 0.2, Ur Leukocyte Esterase Negative I have reviewed the lab results: Yes - RAD Interpretation Radiology Orders: 03/14/17 11:29 ABD & PELVIS PO CONTRAST ONLY [CT] Stat - Medication Orders Current Medication Orders: Sodium Chloride (Sodium Chloride 0.9%) 100 mls @ 150 mls/hr IV .Q40M MICHELLE Discontinued Medications Iohexol (Omnipaque 240 (50 Ml)) Confirm Administered Dose 50 ml .ROUTE .STK-MED ONE Stop: 03/14/17 12:26 Morphine Sulfate (Morphine) 4 mg IVP STAT STA Stop: 03/14/17 11:30 Last Admin: 03/14/17 12:15 Dose: 4 mg Morphine Sulfate (Morphine) 6 mg IVP STAT STA Stop: 03/14/17 14:32 Last Admin: 03/14/17 15:11 Dose: 6 mg - Scribe Statement The provider has reviewed the documentation as recorded by the Chapito Kaiser Provider Scribe Attestation: All medical record entries made by the Scribe were at my direction and personally dictated by me. I have reviewed the chart and agree that the record accurately reflects my personal performance of the history, physical exam, medical decision making, and the department course for this patient. I have also personally directed, reviewed, and agree with the discharge instructions and disposition. Disposition/Present on Arrival - Present on Arrival Any Indicators Present on Arrival: No History of DVT/PE: No History of Uncontrolled Diabetes: No Urinary Catheter: No History of Decub. Ulcer: No History Surgical Site Infection Following: None - Disposition Have Diagnosis and Disposition been Completed?: Yes Diagnosis: Small bowel obstruction Disposition: HOSPITALIZED Disposition Time: 15:39 Patient Plan: Admission Condition: FAIR
[2017-03-14 11:48] LABS: URINE BILIRUBIN NEGATIVE (NEGATIVE); URINE BLOOD NEGATIVE (NEGATIVE); URINE GLUCOSE (UA) NEGATIVE (NEGATIVE); URINE KETONE NEGATIVE (NEGATIVE); URINE LEUKOCYTE ESTERASE NEGATIVE Leu/uL (NEGATIVE); URINE PROTEIN NEGATIVE mg/dL (<30 mg/dL); URINE UROBILINOGEN 0.2 E.U./dL (<1 E.U./dL)
[2017-03-14 11:54] LABS: URINE APPEARANCE CLEAR (CLEAR); URINE COLOR YELLOW (YELLOW)
[2017-03-14 12:14] LABS: VENOUS BLOOD GAS BASE EXCESS 1.3 mmol/L (0.0-2.0); VENOUS BLOOD PH 7.37 (7.32-7.43)
[2017-03-14 12:22] LABS: ALB/GLOB RATIO 1.6 (1.1-1.8); ALKALINE PHOSPHATASE 84 U/L (38-126); ALT/SGPT 46 U/L (7-56); AST/SGOT 33 U/L (17-59); BILIRUBIN,TOTAL 0.6 mg/dL (0.2-1.3); BLOOD UREA NITROGEN 18 mg/dL (7-21); CALCIUM 9.7 mg/dL (8.4-10.5); CARBON DIOXIDE 27 mmol/L (21-33); CHLORIDE 104 mmol/L (98-107); GFR AFRICAN-AMERICAN > 60; GLUCOSE,RANDOM 97 mg/dL (70-110); POTASSIUM 4.2 mmol/L (3.6-5.0); SODIUM 141 mmol/L (132-148); TOTAL PROTEIN 6.9 g/dL (5.8-8.3)
[2017-03-14] MEDS ORDERED: Iohexol 240 (50 ml) ONE (12:25)
[2017-03-14 12:28] LABS: BASO # 0.01 K/mm3 (0.0-2.0); BASO % 0.1 % (0.0-3.0); EOS # 0.2 (0.0-0.7); GRAN # 5.56 (1.4-6.5); GRAN % 75.9 % (50.0-68.0); HEMATOCRIT 37.9 % (42.0-52.0); LYMPH # 1.1 (1.2-3.4); LYMPH % 15.6 % (22.0-35.0); MEAN CORPUSCULAR HEMOGLOBIN 31.6 pg (25.0-35.0); MEAN CORPUSCULAR HGB CONC 34.3 g/dl (31.0-37.0); MEAN PLATELET VOLUME 9.9 fl (7.0-11.0); MONO # 0.5 (0.1-0.6); MONO % 6.4 % (1.0-6.0); RED CELL DISTRIBUTION WIDTH 13.6 % (11.5-14.5); WHITE BLOOD COUNT 7.3 10^3/ul (4.5-11.0)
[2017-03-14 12:32] LABS: INR 3.28 (0.93-1.08); PARTIAL THROMBOPLASTIN TIME 39.9 Seconds (23.7-30.8)
--- NOTE | 2017-03-14 14:53 | CT ---
PROCEDURE: CT Abdomen and Pelvis without intravenous contrast HISTORY: LLQ Groin pain r/o obstruct r/o hernia COMPARISON: None. N abdomen pelvis CT without contrast dated 10/15/2015 with an additional and pelvis CT without contrast 03/04/2017. TECHNIQUE: Axial images of the abdomen from lung bases to iliac crest without intravenous contrast enhancement. Coronal and sagittal reformats generated. Oral contrast was administered. Radiation dose: Total exam DLP = 646 mGy-cm. This CT exam was performed using one or more of the following dose reduction techniques: Automated exposure control, adjustment of the mA and/or kV according to patient size, and/or use of iterative reconstruction technique. FINDINGS: LOWER THORAX: A nodule measures 9 mm at the lateral subsegment left lower lobe in image 1 series 2 corresponding to a previous lead demonstrated nodule on 10/15/2015 measuring only 4 mm, suspicious for metastasis. In addition, there is a soft tissue lesion at the lateral 6th intracostal space measuring 2.7 x 2.8 cm also suspicious for metastasis. 1.1 cm by lobes nodule is seen at the left lower lobe costophrenic sulcus region table in size as well as at least 3-4 additional tiny nodules. Two tiny nodule identified in the medial right lower lobe in the costophrenic sulcus which are also stable. These all may reflect metastatic disease. Cardiomegaly is again noted. No pleural or pericardial effusion identified. A small hiatal hernia is again evident. LIVER: 4.8 cm cyst is again seen at the medial left lobe liver inferiorly with numerous scattered additional cysts present at both lobes. Many year too small to characterize as definitive cysts. A calcified granuloma is again seen the right lobe posteriorly. GALLBLADDER AND BILE DUCTS: Unremarkable. PANCREAS: Unremarkable. No gross lesion or ductal dilatation. SPLEEN: Unremarkable. ADRENALS: Bilateral adrenal masses are again seen including a 7.8 x 4.3 with the left adrenal mass measuring 3.2 x 2.8 cm. Both appear stable in size in the interval. Both remain suspicious for metastatic disease. KIDNEYS AND URETERS: Prior left nephrectomy again identified within exophytic lesion again seen noted off the lower pole right kidney measuring 11.5 mm. No right-sided obstructive uropathy. Limited streaky perinephric changes seen the right kidney. VASCULATURE: Unremarkable. No aortic aneurysm. BOWEL: Small-bowel is appears somewhat distended in the upper abdomen and mid left bandar abdomen with more collapsed appearing distal small bowel loops including the terminal ileum. A [id number] amount retained fecal material and gas is seen in the colon. Overall, the pattern may reflect developing mid to distal small bowel obstruction or possible ileus developing. APPENDIX: Normal appendix. PERITONEUM: Unremarkable. No free fluid. No free air. LYMPH NODES: Shotty retroperitoneal lymph nodes are identified without gross enlargement. BONES: Multifocal lytic bony metastatic lesions are identified in the left mid sacrum, proximal left femur right innominate bone and medial right acetabulum. OTHER FINDINGS: Small umbilical as well as left paraumbilical ventral abdominal hernias appears stable containing only fat. IMPRESSION: 1. Early developing mid to distal small bowel obstruction is questioned versus developing ileus. No ascites or free air. No extravasated oral contrast material. 2. Multifocal metastases identified at the left greater than right lung bases, bilateral adrenal glands, pelvic bones and proximal left femur as discussed above. 3. Multifocal stable hepatic cysts. 4. Prior left nephrectomy. 5. Lesser additional findings as discussed above.
--- NOTE | 2017-03-14 16:33 | CP.PCM.HP ---
History of Present Illness - History of Present Illness History of Present Illness: History and Physical for Dr. Becerril 66M presents with L groin pain and thigh pain for the past month per patient ( poor historian) Pain is sharp and worsens with movement, walking. Patient denies F/C, N/V. Patient states he has trouble with bowel movements, difficulty ambulating. Patient states he uses a walker. Patient feels bloated. Patient's last BM this morning. Last meal was in the morning. Patient has never had this before. PMH: atrial fibrillation (on coumadin), hx ETOH abuse, CHF, Hx renal cancer PSH: aortic valve replacement, L nephrectomy All: acetaminophen, iodine, shellfish PMD: Dr. Doyle Present on Admission - Present on Admission Any Indicators Present on Admission: No History of DVT/PE: No History of Uncontrolled Diabetes: No Urinary Catheter: No Decubitus Ulcer Present: No Past Patient History - Infectious Disease Hx of Infectious Diseases: None - Tetanus Immunizations Tetanus Immunization: Unknown - Past Medical History & Family History Past Medical History?: Yes - Past Social History Smoking Status: Heavy Smoker > 10 Cigarettes Daily - CARDIAC Hx Cardiac Disorders: Yes Hx Angina: Yes Hx Cardia Arrhythmia: Yes (A Fib.) Hx Congestive Heart Failure: Yes Hx Hypertension: Yes Hx Peripheral Edema: Yes Other/Comment: [place], cabd - aortic valve replacement and conduit - PULMONARY Hx Respiratory Disorders: Yes Hx Bronchitis: Yes Hx Chronic Obstructive Pulmonary Disease (COPD): Yes Hx Lung Cancer: Yes - NEUROLOGICAL Hx Neurological Disorder: Yes HX Cerebrovascular Accident: Yes Hx Dizziness: Yes Hx Seizures: Yes (ETOH INDUCED) Hx Transient Ischemic Attacks (TIA): Yes Other/Comment: subdural hematoma - HEENT Hx HEENT Problems: No (WEARS RX GLASSES) - RENAL Hx Chronic Kidney Disease: Yes Hx Renal (Kidney) Cancer: Yes Other/Comment: h/o Kidney Ca, s/p nephrectomy - ENDOCRINE/METABOLIC Other/Comment: adrenal problem. hyperglycemia - HEMATOLOGICAL/ONCOLOGICAL Hx Blood Disorders: Yes (blood transfusion) Hx Anemia: Yes Hx Cancer: Yes (RENAL CA-NEPHRECTOMY, left) Other/Comment: left kidney tumor. LUNG CANCER - INTEGUMENTARY Hx Dermatological Problems: Yes (Biopsy of skin lesion on face) - MUSCULOSKELETAL/RHEUMATOLOGICAL Hx Falls: Yes (in the past) - GASTROINTESTINAL Hx Gastrointestinal Disorders: Yes (gi bleed) Hx Gastroesophageal Reflux: Yes Other/Comment: diverticulosis, colon polyps endo 10/14/15 - GENITOURINARY/GYNECOLOGICAL Hx Genitourinary Disorders: Yes (LEFT KIDNEY TUMOR) Hx Prostate Problems: Yes Other/Comment: scrotal hematoma, left hydrocelectomy, pt had large hydrocele, denies voiding problems - PSYCHIATRIC Hx Psychophysiologic Disorder: Yes (SMOKING CIGARETTES,BEER DRINKER,H/O RX DRUG ABUSE) Hx Anxiety: Yes Hx Emotional Abuse: No Hx Physical Abuse: No Hx Substance Use: No - SURGICAL HISTORY Hx Cardiac Catheterization: Yes Hx Valve Replacement: Yes (aortic) - ANESTHESIA Hx Anesthesia: Yes Hx Anesthesia Reactions: No Hx Malignant Hyperthermia: No Meds Allergies/Adverse Reactions: Allergies Allergy/AdvReac Type Severity Reaction Status Date / Time acetaminophen Allergy ITCHING Verified 03/04/17 10:59 iodine Allergy ITCHING Verified 03/04/17 10:59 shellfish derived Allergy RASH Verified 03/04/17 10:59 Physical Exam - Constitutional Appears: Older Than Stated Age, Confused Additional comments: patient stated answers differently when questions were repeated. Patient had trouble comprehending questions, which had to be re-asked - Head Exam Head Exam: NORMAL INSPECTION - Eye Exam Eye Exam: EOMI, Normal appearance - ENT Exam ENT Exam: Mucous Membranes Moist - Neck Exam Neck exam: Positive for: Full Rom, Normal Inspection - Respiratory Exam Respiratory Exam: NORMAL BREATHING PATTERN. absent: Accessory Muscle Use, Respiratory Distress - Cardiovascular Exam Cardiovascular Exam: REGULAR RHYTHM, +S1, +S2. absent: Bradycardia, Tachycardia - GI/Abdominal Exam GI & Abdominal Exam: Hernia, Soft. absent: Distended, Firm, Guarding, Mass, Rebound, Rigid, Tenderness Additional comments: 2 hernias noted - umbilical, left paraumbilical, both reducible - Extremities Exam Extremities exam: Positive for: normal inspection. Negative for: joint swelling , pedal edema, tenderness - Back Exam Back exam: FULL ROM - Neurological Exam Neurological exam: Alert, Normal Gait, Oriented x3 - Psychiatric Exam Psychiatric exam: Flat Affect, Normal Mood - Skin Skin Exam: Dry, Intact, Normal Color, Warm Results - Vital Signs Recent Vital Signs: Last Vital Signs Temp 98 F 03/14/17 11:14 Pulse 67 03/14/17 15:10 Resp 17 03/14/17 15:10 BP 118/75 03/14/17 15:10 Pulse Ox 98 03/14/17 15:10 - Labs Result Diagrams: 03/14/17 12:00 03/14/17 12:00 Assessment & Plan - Assessment and Plan (Free Text) Assessment: 66 M with Left groin and thigh pain. Plan: IVF serial abdominal exams NPO c/w pain control - Date & Time Date: 03/14/17 Time: 16:45
[2017-03-14] MEDS ORDERED: Sodium Chloride 0.9% 100 ML IV SCH (16:59)
--- NOTE | 2017-03-14 18:10 | CP.PCM.CON ---
<Joseline Mackey - Last Filed: 03/14/17 18:12> History of Present Illness - History of Present Illness History of Present Illness: General Surgery Consult note for Dr. Becerril 66M presents with L groin pain and thigh pain for the past month per patient ( poor historian) Pain is sharp and worsens with movement, walking. Patient denies F/C, N/V. Patient states he has trouble with bowel movements, difficulty ambulating. Patient states he uses a walker. Patient feels bloated. Patient's last BM this morning. Last meal was in the morning. Patient has never had this before. PMH: atrial fibrillation (on coumadin), hx ETOH abuse, CHF, Hx renal cancer PSH: aortic valve replacement, L nephrectomy All: acetaminophen, iodine, shellfish PMD: Dr. Doyle Past Patient History - Infectious Disease Hx of Infectious Diseases: None - Tetanus Immunizations Tetanus Immunization: Unknown - Past Medical History & Family History Past Medical History?: Yes - Past Social History Smoking Status: Heavy Smoker > 10 Cigarettes Daily - CARDIAC Hx Cardiac Disorders: Yes Hx Angina: Yes Hx Cardia Arrhythmia: Yes (A Fib.) Hx Congestive Heart Failure: Yes Hx Hypertension: Yes Hx Peripheral Edema: Yes Other/Comment: [place], cabd - aortic valve replacement and conduit - PULMONARY Hx Respiratory Disorders: Yes Hx Bronchitis: Yes Hx Chronic Obstructive Pulmonary Disease (COPD): Yes Hx Lung Cancer: Yes - NEUROLOGICAL Hx Neurological Disorder: Yes HX Cerebrovascular Accident: Yes Hx Dizziness: Yes Hx Seizures: Yes (ETOH INDUCED) Hx Transient Ischemic Attacks (TIA): Yes Other/Comment: subdural hematoma - HEENT Hx HEENT Problems: No (WEARS RX GLASSES) - RENAL Hx Chronic Kidney Disease: Yes Hx Renal (Kidney) Cancer: Yes Other/Comment: h/o Kidney Ca, s/p nephrectomy - ENDOCRINE/METABOLIC Other/Comment: adrenal problem. hyperglycemia - HEMATOLOGICAL/ONCOLOGICAL Hx Blood Disorders: Yes (blood transfusion) Hx Anemia: Yes Hx Cancer: Yes (RENAL CA-NEPHRECTOMY, left) Other/Comment: left kidney tumor. LUNG CANCER - INTEGUMENTARY Hx Dermatological Problems: Yes (Biopsy of skin lesion on face) - MUSCULOSKELETAL/RHEUMATOLOGICAL Hx Falls: Yes (in the past) - GASTROINTESTINAL Hx Gastrointestinal Disorders: Yes (gi bleed) Hx Gastroesophageal Reflux: Yes Other/Comment: diverticulosis, colon polyps endo 4/15/16 - GENITOURINARY/GYNECOLOGICAL Hx Genitourinary Disorders: Yes (LEFT KIDNEY TUMOR) Hx Prostate Problems: Yes Other/Comment: scrotal hematoma, left hydrocelectomy, pt had large hydrocele, denies voiding problems - PSYCHIATRIC Hx Psychophysiologic Disorder: Yes (SMOKING CIGARETTES,BEER DRINKER,H/O RX DRUG ABUSE) Hx Anxiety: Yes Hx Emotional Abuse: No Hx Physical Abuse: No Hx Substance Use: No - SURGICAL HISTORY Hx Cardiac Catheterization: Yes Hx Valve Replacement: Yes (aortic) - ANESTHESIA Hx Anesthesia: Yes Hx Anesthesia Reactions: No Hx Malignant Hyperthermia: No Meds Allergies/Adverse Reactions: Allergies Allergy/AdvReac Type Severity Reaction Status Date / Time acetaminophen Allergy ITCHING Verified 03/04/17 10:59 iodine Allergy ITCHING Verified 03/04/17 10:59 shellfish derived Allergy RASH Verified 03/04/17 10:59 - Medications Medications: Current Medications Sodium Chloride (Sodium Chloride 0.9%) 100 mls @ 150 mls/hr IV .Q40M [facility] Last Admin: 03/14/17 17:31 Dose: 150 mls/hr Ketorolac Tromethamine (Toradol) 15 mg IVP Q6 PRN PRN Reason: Pain, moderate (4-7) Ondansetron HCl (Zofran Inj) 4 mg IVP Q4H PRN PRN Reason: Nausea/Vomiting Pantoprazole Sodium (Protonix Inj) 40 mg IVP DAILY [facility] Physical Exam - Additional Findings Additional findings: - Constitutional Appears: Older Than Stated Age, Confused Additional comments: patient stated answers differently when questions were repeated. Patient had trouble comprehending questions, which had to be re-asked - Head Exam Head Exam: NORMAL INSPECTION - Eye Exam Eye Exam: EOMI, Normal appearance - ENT Exam ENT Exam: Mucous Membranes Moist - Neck Exam Neck exam: Positive for: Full Rom, Normal Inspection - Respiratory Exam Respiratory Exam: NORMAL BREATHING PATTERN. absent: Accessory Muscle Use, Respiratory Distress - Cardiovascular Exam Cardiovascular Exam: REGULAR RHYTHM, +S1, +S2. absent: Bradycardia, Tachycardia - GI/Abdominal Exam GI & Abdominal Exam: Hernia, Soft. absent: Distended, Firm, Guarding, Mass, Rebound, Rigid, Tenderness Additional comments: 2 hernias noted - umbilical, left paraumbilical, both reducible - Extremities Exam Extremities exam: Positive for: normal inspection. Negative for: joint swelling , pedal edema, tenderness - Back Exam Back exam: FULL ROM - Neurological Exam Neurological exam: Alert, Normal Gait, Oriented x3 - Psychiatric Exam Psychiatric exam: Flat Affect, Normal Mood - Skin Skin Exam: Dry, Intact, Normal Color, Warm Results - Vital Signs Recent Vital Signs: Last Vital Signs Temp 98.0 F 03/14/17 17:19 Pulse 70 03/14/17 17:19 Resp 16 03/14/17 17:19 BP 117/60 03/14/17 17:19 Pulse Ox 99 03/14/17 17:19 - Labs Result Diagrams: 03/14/17 12:00 03/14/17 12:00 Assessment & Plan - Assessment and Plan (Free Text) Assessment: 66 M with Left groin and thigh pain. Plan: IVF serial abdominal exams NPO c/w pain control - Date & Time Date: 03/14/17 Time: 17:00 <Jean Becerril - Last Filed: 03/18/17 10:17> Meds - Medications Medications: Current Medications Docusate Sodium (Colace) 100 mg PO BID [facility] Last Admin: 03/17/17 18:41 Dose: 100 mg Fentanyl (Duragesic) 1 patch TD Q72H [facility] Last Admin: 03/15/17 11:53 Dose: 1 patch Sodium Chloride (Sodium Chloride 0.9%) 1,000 mls @ 150 mls/hr IV .Q6H40M [facility] Last Admin: 03/18/17 05:50 Dose: 150 mls/hr Ketorolac Tromethamine (Toradol) 15 mg IVP Q6 PRN PRN Reason: Pain, moderate (4-7) Last Admin: 03/17/17 21:44 Dose: 15 mg Meclizine HCl (Antivert) 25 mg PO Q6 PRN PRN Reason: Dizziness Last Admin: 03/16/17 12:26 Dose: 25 mg Ondansetron HCl (Zofran Inj) 4 mg IVP Q4H PRN PRN Reason: Nausea/Vomiting Last Admin: 03/16/17 10:51 Dose: 4 mg Pantoprazole Sodium (Protonix Inj) 40 mg IVP DAILY [facility] Last Admin: 03/17/17 09:51 Dose: 40 mg Results - Vital Signs Recent Vital Signs: Last Vital Signs Temp 98.2 F 03/18/17 07:34 Pulse 68 03/18/17 07:34 Resp 16 03/18/17 07:34 BP 152/83 H 03/18/17 07:34 Pulse Ox 97 03/18/17 07:34 - Labs Result Diagrams: 03/17/17 07:30 03/17/17 07:30 Assessment & Plan - Assessment and Plan (Free Text) Assessment: Dx Ileus doubt PSBO R/O Mets L pelvis-femur Rx Supportive measures/No Surgery This consult done under my direct supervision Filiberto Becerril MD FACS
[2017-03-14] MEDS ORDERED: Pneumococcal 23-Valent Vaccine IM ONE (22:07)
[2017-03-14] MEDS: Sodium Chloride 0.9% 1,000 ML IV SCH (23:33)
[2017-03-15] MEDS: Sodium Chloride 0.9% 1,000 ML IV SCH (09:28)
--- NOTE | 2017-03-15 09:44 | CP.PCM.PN ---
Subjective - Date & Time of Evaluation Date of Evaluation: 03/15/17 Time of Evaluation: 09:41 - Subjective Subjective: General Surgery Consult for Dr. Becerril PT S&E at bedside. Patient states he still has pain. He described his pain at medial thigh to knee. Patient denies F/C, N/V. Patient denies abdominal pain Objective - Vital Signs/Intake and Output Vital Signs (last 24 hours): Temp Pulse Resp BP Pulse Ox 98.2 F 61 20 136/79 94 L 03/15/17 08:25 03/15/17 08:25 03/15/17 08:25 03/15/17 08:25 03/15/17 08:25 Intake and Output: 03/15/17 03/15/17 06:59 18:59 Intake Total 0 Output Total 1100 Balance -1100 - Medications Medications: Current Medications Sodium Chloride (Sodium Chloride 0.9%) 1,000 mls @ 150 mls/hr IV .Q6H40M [facility] Last Admin: 03/15/17 09:28 Dose: 150 mls/hr Ketorolac Tromethamine (Toradol) 15 mg IVP Q6 PRN PRN Reason: Pain, moderate (4-7) Last Admin: 03/15/17 05:30 Dose: 15 mg Ondansetron HCl (Zofran Inj) 4 mg IVP Q4H PRN PRN Reason: Nausea/Vomiting Pantoprazole Sodium (Protonix Inj) 40 mg IVP DAILY [facility] Last Admin: 03/15/17 09:29 Dose: 40 mg - Labs Labs: PT 35.4 Seconds (9.9-11.8) H* 03/14/17 12:00 INR 3.28 (0.93-1.08) H 03/14/17 12:00 APTT 39.9 Seconds (23.7-30.8) H 03/14/17 12:00 - Constitutional Appears: Non-toxic, No Acute Distress - Head Exam Head Exam: NORMAL INSPECTION - Eye Exam Eye Exam: EOMI, Normal appearance - ENT Exam ENT Exam: Mucous Membranes Moist - Neck Exam Neck Exam: Full ROM - Respiratory Exam Respiratory Exam: NORMAL BREATHING PATTERN. absent: Accessory Muscle Use, Respiratory Distress - Cardiovascular Exam Cardiovascular Exam: REGULAR RHYTHM, +S1, +S2. absent: Bradycardia, Tachycardia - GI/Abdominal Exam GI & Abdominal Exam: Soft. absent: Tenderness, Rebound - Extremities Exam Extremities Exam: Full ROM, Normal Inspection. absent: Pedal Edema - Back Exam Back Exam: Full ROM, NORMAL INSPECTION - Neurological Exam Neurological Exam: Alert, Awake, Oriented x3 - Psychiatric Exam Psychiatric exam: Normal Affect, Normal Mood - Skin Skin Exam: Dry, Normal Color, Warm Assessment and Plan - Assessment and Plan (Free Text) Assessment: 66 M with Left groin and thigh pain. Plan: IVF serial abdominal exams NPO c/w pain control Joseline Mackey, DO PGY1
--- NOTE | 2017-03-15 11:36 | CP.PCM.PCO ---
Physician Communication Note - Physician Communication Note Physician Communication Note: Doubt SBO-probable Ileus/Rx liquids/[id number] patch
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
[2017-03-16] MEDS: Sodium Chloride 0.9% 1,000 ML IV SCH (01:01)
--- NOTE | 2017-03-16 06:38 | CP.PCM.PN ---
Subjective - Date & Time of Evaluation Date of Evaluation: 03/16/17 Time of Evaluation: 06:00 - Subjective Subjective: General surgery progress note for Dr. Becerril-Cathi Kemp, PGY-1 Pt S & E at bedside. Pt reports continued pain of L groin area, with new pain of left hip/buttock- but pain is only with movement. Tolerating CLD. Denies N/V/F/C, SOB, CP, ab pain. Objective - Vital Signs/Intake and Output Vital Signs (last 24 hours): Temp Pulse Resp BP Pulse Ox 98.2 F 62 20 148/88 98 03/15/17 18:36 03/15/17 18:36 03/15/17 18:36 03/15/17 18:36 03/15/17 18:36 Intake and Output: 03/15/17 03/16/17 18:59 06:59 Intake Total 600 1380 Output Total 650 1175 Balance -50 205 - Medications Medications: Current Medications Fentanyl (Duragesic) 1 patch TD Q72H [facility] Last Admin: 03/15/17 11:53 Dose: 1 patch Sodium Chloride (Sodium Chloride 0.9%) 1,000 mls @ 150 mls/hr IV .Q6H40M [facility] Last Admin: 03/16/17 01:01 Dose: 150 mls/hr Ketorolac Tromethamine (Toradol) 15 mg IVP Q6 PRN PRN Reason: Pain, moderate (4-7) Last Admin: 03/15/17 21:22 Dose: 15 mg Ondansetron HCl (Zofran Inj) 4 mg IVP Q4H PRN PRN Reason: Nausea/Vomiting Pantoprazole Sodium (Protonix Inj) 40 mg IVP DAILY [facility] Last Admin: 03/15/17 09:29 Dose: 40 mg - Labs Labs: PT 35.4 Seconds (9.9-11.8) H* 03/14/17 12:00 INR 3.28 (0.93-1.08) H 03/14/17 12:00 APTT 39.9 Seconds (23.7-30.8) H 03/14/17 12:00 - Constitutional Appears: Non-toxic, No Acute Distress - Head Exam Head Exam: ATRAUMATIC, NORMAL INSPECTION, NORMOCEPHALIC - Eye Exam Eye Exam: EOMI, Normal appearance - ENT Exam ENT Exam: Mucous Membranes Moist, Normal Exam - Neck Exam Neck Exam: Full ROM, Normal Inspection - Respiratory Exam Respiratory Exam: Clear to Ausculation Bilateral, NORMAL BREATHING PATTERN - Cardiovascular Exam Cardiovascular Exam: REGULAR RHYTHM, +S1, +S2 - GI/Abdominal Exam GI & Abdominal Exam: Soft, Normal Bowel Sounds. absent: Distended, Firm, Guarding, Rigid, Tenderness - Extremities Exam Extremities Exam: Normal Inspection. absent: Pedal Edema, Tenderness - Neurological Exam Neurological Exam: Alert, Awake, CN II-XII Intact, Oriented x3 - Psychiatric Exam Psychiatric exam: Normal Affect, Normal Mood - Skin Skin Exam: Dry, Intact, Normal Color, Warm Assessment and Plan - Assessment and Plan (Free Text) Assessment: 66M w/ileus Plan: CLD Pain regimen Zofran IVF OOBTC Ambulate FU Ab x-ray Dulculax PO as per attending Monitor for bowel function DW surgical attending [place], PGY-1
[2017-03-16] MEDS ORDERED: Bisacodyl 5mg EC Tab PO ONE (07:43)
--- NOTE | 2017-03-16 10:08 | CP.PCM.PCO ---
Physician Communication Note - Physician Communication Note Physician Communication Note: No evidence obstruction/+ constipation
--- NOTE | 2017-03-16 13:50 | CP.PCM.PN ---
Subjective - Date & Time of Evaluation Date of Evaluation: 03/16/17 Time of Evaluation: 11:30 - Subjective Subjective: c/o severe pain L hip, inguinal area, difficulty walking, c/o dizziness ( improved with meclizine) Objective - Vital Signs/Intake and Output Vital Signs (last 24 hours): Temp Pulse Resp BP Pulse Ox 97.9 F 61 18 120/87 96 03/16/17 07:30 03/16/17 07:30 03/16/17 07:30 03/16/17 07:30 03/16/17 07:30 Intake and Output: 03/16/17 03/16/17 06:59 18:59 Intake Total 1380 Output Total 1175 Balance 205 - Medications Medications: Current Medications Fentanyl (Duragesic) 1 patch TD Q72H [facility] Last Admin: 03/15/17 11:53 Dose: 1 patch Sodium Chloride (Sodium Chloride 0.9%) 1,000 mls @ 150 mls/hr IV .Q6H40M [facility] Last Admin: 03/16/17 01:01 Dose: 150 mls/hr Ketorolac Tromethamine (Toradol) 15 mg IVP Q6 PRN PRN Reason: Pain, moderate (4-7) Last Admin: 03/15/17 21:22 Dose: 15 mg Meclizine HCl (Antivert) 25 mg PO Q6 PRN PRN Reason: Dizziness Last Admin: 03/16/17 12:26 Dose: 25 mg Ondansetron HCl (Zofran Inj) 4 mg IVP Q4H PRN PRN Reason: Nausea/Vomiting Last Admin: 03/16/17 10:51 Dose: 4 mg Pantoprazole Sodium (Protonix Inj) 40 mg IVP DAILY [facility] Last Admin: 03/16/17 10:47 Dose: 40 mg - Labs Labs: PT 35.4 Seconds (9.9-11.8) H* 03/14/17 12:00 INR 3.28 (0.93-1.08) H 03/14/17 12:00 APTT 39.9 Seconds (23.7-30.8) H 03/14/17 12:00 - Respiratory Exam Respiratory Exam: Clear to Ausculation Bilateral, NORMAL BREATHING PATTERN - Cardiovascular Exam Cardiovascular Exam: REGULAR RHYTHM - GI/Abdominal Exam GI & Abdominal Exam: Soft, Normal Bowel Sounds - Extremities Exam Extremities Exam: Normal Inspection - Neurological Exam Neurological Exam: Abnormal Gait, Alert - Skin Skin Exam: Dry, Warm Assessment and Plan (1) Small bowel obstruction Status: Acute (2) Aortic valve replaced Status: Chronic (3) Atrial fibrillation Status: Chronic (4) Metastatic renal cell carcinoma Status: Chronic (5) Intractable pain Status: Acute - Assessment and Plan (Free Text) Plan: continue surgical f/u, await oncology consult, pain mgmt
--- NOTE | 2017-03-16 17:07 | RAD ---
HISTORY: ileus COMPARISON: Comparison made with CT scan abdomen pelvis 03/14/2017 FINDINGS: BOWEL: Oral contrast material is present within the large bowel including the rectum excluding a complete small bowel obstruction. BONES: Lytic lesions within the sacrum and right iliac bone are poorly delineated. OTHER FINDINGS: None. IMPRESSION: No evidence of complete obstruction with oral contrast material opacifying the colon. Metastatic lesions within the right iliac bone and right sacrum poorly seen.
--- NOTE | 2017-03-16 20:57 | CP.PCM.PCO ---
Additional Comments - Additional Comments Additional Comments: Pt. with metastatic renal cell cancer. Non compliant. disease in abdomen, chest. MRI of brain with contrast r/o brain meds.
[2017-03-17 08:15] LABS: BASO # 0.02 K/mm3 (0.0-2.0); BASO % 0.3 % (0.0-3.0); EOS # 0.3 (0.0-0.7); EOS % 4.4 % (1.5-5.0); GRAN # 3.97 (1.4-6.5); GRAN % 69.2 % (50.0-68.0); HEMATOCRIT 39.9 % (42.0-52.0); LYMPH # 1.1 (1.2-3.4); MEAN CELL VOLUME 92.1 fl (80.0-105.0); MEAN CORPUSCULAR HEMOGLOBIN 31.2 pg (25.0-35.0); MEAN CORPUSCULAR HGB CONC 33.8 g/dl (31.0-37.0); MEAN PLATELET VOLUME 9.9 fl (7.0-11.0); MONO # 0.4 (0.1-0.6); MONO % 7.1 % (1.0-6.0); RED CELL DISTRIBUTION WIDTH 13.5 % (11.5-14.5); WHITE BLOOD COUNT 5.7 10^3/ul (4.5-11.0)
[2017-03-17 09:09] LABS: BLOOD UREA NITROGEN 11 mg/dL (7-21); CALCIUM 9.4 mg/dL (8.4-10.5); CARBON DIOXIDE 28 mmol/L (21-33); CHLORIDE 104 mmol/L (98-107); GFR AFRICAN-AMERICAN > 60; GLUCOSE,RANDOM 92 mg/dL (70-110); POTASSIUM 3.8 mmol/L (3.6-5.0); SODIUM 140 mmol/L (132-148)
[2017-03-17] MEDS: Sodium Chloride 0.9% 1,000 ML IV SCH ×3 (09:30→23:00)
--- NOTE | 2017-03-17 11:39 | CP.PCM.PN ---
Subjective - Date & Time of Evaluation Date of Evaluation: 03/17/17 Time of Evaluation: 11:00 - Subjective Subjective: c/o pain L hip/inguinal area, unable to walk Objective - Vital Signs/Intake and Output Vital Signs (last 24 hours): Temp Pulse Resp BP Pulse Ox 98.3 F 60 16 126/74 100 03/17/17 07:30 03/17/17 07:30 03/17/17 07:30 03/17/17 07:30 03/17/17 07:30 Intake and Output: 03/17/17 03/17/17 06:59 18:59 Intake Total 700 Output Total 1200 Balance -500 - Medications Medications: Current Medications Fentanyl (Duragesic) 1 patch TD Q72H [facility] Last Admin: 03/15/17 11:53 Dose: 1 patch Sodium Chloride (Sodium Chloride 0.9%) 1,000 mls @ 150 mls/hr IV .Q6H40M [facility] Last Admin: 03/17/17 09:30 Dose: 150 mls/hr Ketorolac Tromethamine (Toradol) 15 mg IVP Q6 PRN PRN Reason: Pain, moderate (4-7) Last Admin: 03/17/17 02:04 Dose: 15 mg Meclizine HCl (Antivert) 25 mg PO Q6 PRN PRN Reason: Dizziness Last Admin: 03/16/17 12:26 Dose: 25 mg Ondansetron HCl (Zofran Inj) 4 mg IVP Q4H PRN PRN Reason: Nausea/Vomiting Last Admin: 03/16/17 10:51 Dose: 4 mg Pantoprazole Sodium (Protonix Inj) 40 mg IVP DAILY [facility] Last Admin: 03/17/17 09:51 Dose: 40 mg - Labs Labs: 03/17/17 07:30 03/17/17 07:30 PT 35.4 Seconds (9.9-11.8) H* 03/14/17 12:00 INR 3.28 (0.93-1.08) H 03/14/17 12:00 APTT 39.9 Seconds (23.7-30.8) H 03/14/17 12:00 - Respiratory Exam Respiratory Exam: Clear to Ausculation Bilateral, NORMAL BREATHING PATTERN - Cardiovascular Exam Cardiovascular Exam: REGULAR RHYTHM - GI/Abdominal Exam GI & Abdominal Exam: Soft, Normal Bowel Sounds - Back Exam Back Exam: NORMAL INSPECTION - Neurological Exam Neurological Exam: Abnormal Gait, Alert, Awake - Skin Skin Exam: Dry, Warm Assessment and Plan (1) Small bowel obstruction Status: Resolved (2) Aortic valve replaced Status: Chronic (3) Atrial fibrillation Status: Chronic (4) Metastatic renal cell carcinoma Status: Chronic (5) Intractable pain Status: Acute - Assessment and Plan (Free Text) Plan: oncology consult noted, continue pain mgmt, possible rad/onc consult
--- NOTE | 2017-03-17 13:42 | CP.PCM.PN ---
Subjective - Date & Time of Evaluation Date of Evaluation: 03/17/17 Time of Evaluation: 09:30 - Subjective Subjective: Surgery Progress note. Dr. Becerril Pt seen and examined at bedside. No acute events overnight. Patient reports a large BM overnight. Denies any abdominal pain. No N/V/D. No new complaints. Still c/o L groin pain radiating to thigh. No F/C. Objective - Vital Signs/Intake and Output Vital Signs (last 24 hours): Temp Pulse Resp BP Pulse Ox 98.3 F 60 16 126/74 100 03/17/17 07:30 03/17/17 07:30 03/17/17 07:30 03/17/17 07:30 03/17/17 07:30 Intake and Output: 03/17/17 03/17/17 06:59 18:59 Intake Total 700 Output Total 1200 Balance -500 - Medications Medications: Current Medications Fentanyl (Duragesic) 1 patch TD Q72H [facility] Last Admin: 03/15/17 11:53 Dose: 1 patch Sodium Chloride (Sodium Chloride 0.9%) 1,000 mls @ 150 mls/hr IV .Q6H40M [facility] Last Admin: 03/17/17 09:30 Dose: 150 mls/hr Ketorolac Tromethamine (Toradol) 15 mg IVP Q6 PRN PRN Reason: Pain, moderate (4-7) Last Admin: 03/17/17 02:04 Dose: 15 mg Meclizine HCl (Antivert) 25 mg PO Q6 PRN PRN Reason: Dizziness Last Admin: 03/16/17 12:26 Dose: 25 mg Ondansetron HCl (Zofran Inj) 4 mg IVP Q4H PRN PRN Reason: Nausea/Vomiting Last Admin: 03/16/17 10:51 Dose: 4 mg Pantoprazole Sodium (Protonix Inj) 40 mg IVP DAILY [facility] Last Admin: 03/17/17 09:51 Dose: 40 mg - Labs Labs: 03/17/17 07:30 03/17/17 07:30 PT 35.4 Seconds (9.9-11.8) H* 03/14/17 12:00 INR 3.28 (0.93-1.08) H 03/14/17 12:00 APTT 39.9 Seconds (23.7-30.8) H 03/14/17 12:00 - Constitutional Appears: Well, No Acute Distress - Head Exam Head Exam: ATRAUMATIC, NORMAL INSPECTION, NORMOCEPHALIC - Eye Exam Eye Exam: EOMI - ENT Exam ENT Exam: Mucous Membranes Moist - Respiratory Exam Respiratory Exam: NORMAL BREATHING PATTERN - Cardiovascular Exam Cardiovascular Exam: RRR. absent: JVD - GI/Abdominal Exam GI & Abdominal Exam: Soft. absent: Distended, Firm, Guarding, Rigid, Tenderness - Extremities Exam Extremities Exam: Normal Inspection. absent: Pedal Edema - Neurological Exam Neurological Exam: Alert, Awake, Oriented x3 - Skin Skin Exam: Dry, Intact, Normal Color, Warm Assessment and Plan - Assessment and Plan (Free Text) Assessment: 66yo M with PMHx including A.Fib, CHF, Renal CA, L Nephrectomy. Likely with constipation. - Noted patient states large BM early this AM - Abd Xray with no evidence of obstruction - Continue bowel regimen - Encourage OOB - Encourage Ambulation - Pain management - No plans for any acute surgical intervention Further recs as per Dr. Jone Alford PGY1 surgery pager: [phone]
[2017-03-18] MEDS: Sodium Chloride 0.9% 1,000 ML IV SCH (05:50)
--- NOTE | 2017-03-18 09:35 | CP.PCM.PN ---
Subjective - Date & Time of Evaluation Date of Evaluation: 03/18/17 Time of Evaluation: 09:32 - Subjective Subjective: General Surgery progress note for Dr. Becerril PT S&E At bedside, SANDEE Patient has L groin pain radiating to thigh. Patient denies BM, abdominal pain, N/V/D. Objective - Vital Signs/Intake and Output Vital Signs (last 24 hours): Temp Pulse Resp BP Pulse Ox 98.2 F 68 16 152/83 H 97 03/18/17 07:34 03/18/17 07:34 03/18/17 07:34 03/18/17 07:34 03/18/17 07:34 Intake and Output: 03/18/17 03/18/17 06:59 18:59 Intake Total 240 Output Total 750 Balance -510 - Medications Medications: Current Medications Docusate Sodium (Colace) 100 mg PO BID [facility] Last Admin: 03/17/17 18:41 Dose: 100 mg Fentanyl (Duragesic) 1 patch TD Q72H [facility] Last Admin: 03/15/17 11:53 Dose: 1 patch Sodium Chloride (Sodium Chloride 0.9%) 1,000 mls @ 150 mls/hr IV .Q6H40M [facility] Last Admin: 03/18/17 05:50 Dose: 150 mls/hr Ketorolac Tromethamine (Toradol) 15 mg IVP Q6 PRN PRN Reason: Pain, moderate (4-7) Last Admin: 03/17/17 21:44 Dose: 15 mg Meclizine HCl (Antivert) 25 mg PO Q6 PRN PRN Reason: Dizziness Last Admin: 03/16/17 12:26 Dose: 25 mg Ondansetron HCl (Zofran Inj) 4 mg IVP Q4H PRN PRN Reason: Nausea/Vomiting Last Admin: 03/16/17 10:51 Dose: 4 mg Pantoprazole Sodium (Protonix Inj) 40 mg IVP DAILY [facility] Last Admin: 03/17/17 09:51 Dose: 40 mg - Labs Labs: 03/17/17 07:30 03/17/17 07:30 PT 35.4 Seconds (9.9-11.8) H* 03/14/17 12:00 INR 3.28 (0.93-1.08) H 03/14/17 12:00 APTT 39.9 Seconds (23.7-30.8) H 03/14/17 12:00 - Constitutional Appears: Non-toxic - Head Exam Head Exam: NORMAL INSPECTION - Eye Exam Eye Exam: EOMI, Normal appearance - ENT Exam ENT Exam: Mucous Membranes Moist - Neck Exam Neck Exam: Full ROM - Respiratory Exam Respiratory Exam: Clear to Ausculation Bilateral, NORMAL BREATHING PATTERN. absent: Accessory Muscle Use, Respiratory Distress - Cardiovascular Exam Cardiovascular Exam: REGULAR RHYTHM. absent: Bradycardia, Tachycardia - GI/Abdominal Exam GI & Abdominal Exam: Soft, Normal Bowel Sounds. absent: Tenderness, Diminished Bowel Sounds, Hypoactive Bowel Sounds - Extremities Exam Extremities Exam: Tenderness Additional comments: patient states tenderness to groin and thigh. unable to appreciate on physical exam today - Neurological Exam Neurological Exam: Alert, Awake, Oriented x3 - Psychiatric Exam Psychiatric exam: Normal Affect, Normal Mood - Skin Skin Exam: Dry, Intact, Normal Color, Warm Assessment and Plan - Assessment and Plan (Free Text) Assessment: 66yo M with resolving constipation, PMHx including A.Fib, CHF, Renal CA, L Nephrectomy Plan: c/w bowel regimen encourage OOB encourage Ambulation c/w pain management no plans for any acute surgical intervention d/w Dr. Jone Mackey, DO PGY1 surgery pager: [phone]
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
--- NOTE | 2017-03-18 11:23 | CP.PCM.PCO ---
Physician Communication Note - Physician Communication Note Physician Communication Note: + BM/Rx Diet/XRT for pain palliation
--- NOTE | 2017-03-18 13:43 | CP.PCM.PN ---
Subjective - Date & Time of Evaluation Date of Evaluation: 03/18/17 Time of Evaluation: 09:15 - Subjective Subjective: c/o L inguinal/hip pain, unable to ambulate more than a few feet Objective - Vital Signs/Intake and Output Vital Signs (last 24 hours): Temp Pulse Resp BP Pulse Ox 98.2 F 68 16 152/83 H 97 03/18/17 07:34 03/18/17 07:34 03/18/17 07:34 03/18/17 07:34 03/18/17 07:34 Intake and Output: 03/18/17 03/18/17 06:59 18:59 Intake Total 240 Output Total 750 Balance -510 - Medications Medications: Current Medications Docusate Sodium (Colace) 100 mg PO BID [facility] Last Admin: 03/18/17 11:18 Dose: Not Given Fentanyl (Duragesic) 1 patch TD Q72H [facility] Last Admin: 03/18/17 12:47 Dose: 1 patch Sodium Chloride (Sodium Chloride 0.9%) 1,000 mls @ 150 mls/hr IV .Q6H40M [facility] Last Admin: 03/18/17 05:50 Dose: 150 mls/hr Ketorolac Tromethamine (Toradol) 15 mg IVP Q6 PRN PRN Reason: Pain, moderate (4-7) Last Admin: 03/17/17 21:44 Dose: 15 mg Meclizine HCl (Antivert) 25 mg PO Q6 PRN PRN Reason: Dizziness Last Admin: 03/16/17 12:26 Dose: 25 mg Ondansetron HCl (Zofran Inj) 4 mg IVP Q4H PRN PRN Reason: Nausea/Vomiting Last Admin: 03/16/17 10:51 Dose: 4 mg Pantoprazole Sodium (Protonix Inj) 40 mg IVP DAILY [facility] Last Admin: 03/18/17 12:21 Dose: Not Given - Labs Labs: 03/17/17 07:30 03/17/17 07:30 PT 35.4 Seconds (9.9-11.8) H* 03/14/17 12:00 INR 3.28 (0.93-1.08) H 03/14/17 12:00 APTT 39.9 Seconds (23.7-30.8) H 03/14/17 12:00 - Respiratory Exam Respiratory Exam: Clear to Ausculation Bilateral, NORMAL BREATHING PATTERN - Cardiovascular Exam Cardiovascular Exam: REGULAR RHYTHM - GI/Abdominal Exam GI & Abdominal Exam: Soft, Normal Bowel Sounds - Extremities Exam Extremities Exam: Normal Inspection - Neurological Exam Neurological Exam: Abnormal Gait, Alert, Awake - Skin Skin Exam: Dry, Warm Assessment and Plan (1) Small bowel obstruction Status: Resolved (2) Aortic valve replaced Status: Chronic (3) Atrial fibrillation Status: Chronic (4) Metastatic renal cell carcinoma Status: Chronic (5) Intractable pain Status: Acute - Assessment and Plan (Free Text) Plan: oncology consult Dr. Bal appreciated, for rad/onc eval and Tx, possible start Sutinib
--- NOTE | 2017-03-18 23:57 | CON ---
DATE: 03/18/2017 CONSULT REQUESTED BY: Dr. Andrzej Doyle. REASON FOR CONSULTATION: Metastatic renal cancer. HISTORY OF PRESENT ILLNESS: The patient is a 66-year-old male admitted to the hospital with left leg pain, difficulty ambulation. He was diagnosed with left renal cancer in 2014. He has been noncompliant with his appointment and he cannot be reached, does not have telephone at home. He has one sister, who lives in [place]. It was challenging due to social issues to even get him to go to [place] for left-sided nephrectomy. Recent CAT scan done during hospitalization revealed metastatic cancer with bilateral adrenal mass, bony metastatic disease in the pelvis and left hip area. He is complaining of left hip pain, difficult to ambulate. PAST MEDICAL HISTORY: Coronary artery disease, atrial fibrillation, congestive heart failure, hypertension, aortic valve replacement, COPD, history of alcohol abuse, seizure disorder, TIA, history of subdural hematoma, history of recent fall. PAST SURGICAL HISTORY: Left-sided nephrectomy. ALLERGIES: ACETAMINOPHEN, IODINE, SHELLFISH. HOME MEDICATIONS: Reviewed. REVIEW OF SYSTEMS: As per HPI. Rest of 12-point review of systems reviewed and negative. PHYSICAL EXAMINATION: GENERAL: Mild distress due to left leg pain, left hip pain. VITAL SIGNS: Temperature 98.7, heart rate 68 per minute, respiratory 16 per minute, blood pressure 152/83, pulse ox is 98% room air. HEENT: Normal. CHEST: Air entry present and equal bilaterally. No added sound. CARDIOVASCULAR: S1 and S2 normal. No murmur, no gallop. ABDOMEN: Soft and nontender. No hepatosplenomegaly. EXTREMITIES: No edema. CENTRAL NERVOUS SYSTEM: Alert and oriented x3. No focal, sensory or motor deficit. LABORATORY DATA: White count 5.7, hemoglobin 13.5, hematocrit 39.9, platelets 221. Sodium 140, potassium 3.8, BUN 11, creatinine 0.9. ASSESSMENT: 1. Left renal cancer stage IV, metastatic lesion in both adrenals, bony metastatic lesion in the pelvis. 2. Pain, left pain. 3. Atrial fibrillation. 4. Congestive cardiac failure. 5. Chronic obstructive pulmonary disease. 6. Transient ischemic attack. PLAN: The patient is a 66-year-old male with stage IV renal cancer. He is noncompliant. He cannot be reached, does not have telephone at home. He has a home health care case manager appointed by the insurance. His medical treatment is challenging due to compliance issues. He is chronic alcoholic. He has history of recurrent falls. I would recommend palliative radiation to the hip for the pain management. He is currently on fentanyl patch 25 mcg daily and Toradol p.r.n. for pain. Pain management will also be challenging because of history of heavy alcohol abuse. History of recurrent fall in the past; We will try to reach the sister regarding further level of care. Thank you Dr. Doyle for allowing us to participate in the patient's care. Elayne Bla MD MTDD
--- NOTE | 2017-03-19 08:32 | CP.PCM.PN ---
Subjective - Date & Time of Evaluation Date of Evaluation: 03/19/17 Time of Evaluation: 08:20 - Subjective Subjective: c/o L inguinal pain, dizziness, denies cp or sob Objective - Vital Signs/Intake and Output Vital Signs (last 24 hours): Temp Pulse Resp BP Pulse Ox 97.9 F 49 L 20 160/74 H 97 03/19/17 07:30 03/19/17 07:30 03/19/17 07:30 03/19/17 07:30 03/19/17 07:30 Intake and Output: 03/19/17 03/19/17 06:59 18:59 Intake Total 1020 Output Total 1050 Balance -30 - Medications Medications: Current Medications Atenolol (Tenormin) 25 mg PO DAILY [facility] Last Admin: 03/18/17 14:44 Dose: 25 mg Docusate Sodium (Colace) 100 mg PO BID [facility] Last Admin: 03/18/17 17:41 Dose: Not Given Fentanyl (Duragesic) 1 patch TD Q72H [facility] Last Admin: 03/18/17 12:47 Dose: 1 patch Ketorolac Tromethamine (Toradol) 15 mg IVP Q6 PRN PRN Reason: Pain, moderate (4-7) Last Admin: 03/18/17 20:15 Dose: 15 mg Losartan Potassium (Cozaar) 25 mg PO DAILY [facility] Meclizine HCl (Antivert) 25 mg PO Q6 PRN PRN Reason: Dizziness Last Admin: 03/16/17 12:26 Dose: 25 mg Ondansetron HCl (Zofran Inj) 4 mg IVP Q4H PRN PRN Reason: Nausea/Vomiting Last Admin: 03/16/17 10:51 Dose: 4 mg Pantoprazole Sodium (Protonix Inj) 40 mg IVP DAILY [facility] Last Admin: 03/18/17 12:21 Dose: Not Given - Labs Labs: 03/17/17 07:30 03/17/17 07:30 PT 35.4 Seconds (9.9-11.8) H* 03/14/17 12:00 INR 3.28 (0.93-1.08) H 03/14/17 12:00 APTT 39.9 Seconds (23.7-30.8) H 03/14/17 12:00 - Respiratory Exam Respiratory Exam: Clear to Ausculation Bilateral, NORMAL BREATHING PATTERN - Cardiovascular Exam Cardiovascular Exam: REGULAR RHYTHM - GI/Abdominal Exam GI & Abdominal Exam: Soft, Normal Bowel Sounds - Back Exam Back Exam: NORMAL INSPECTION - Neurological Exam Neurological Exam: Abnormal Gait, Alert, Awake - Skin Skin Exam: Dry, Warm Assessment and Plan (1) Small bowel obstruction Status: Resolved (2) Aortic valve replaced Status: Chronic (3) Atrial fibrillation Status: Chronic (4) Metastatic renal cell carcinoma Status: Chronic (5) Intractable pain Status: Acute (6) Hypertension Status: Chronic - Assessment and Plan (Free Text) Plan: start losartan 25qd, for rad/onc eval and tx
--- NOTE | 2017-03-20 00:45 | CP.PCM.PN ---
Subjective - Date & Time of Evaluation Date of Evaluation: 03/19/17 Time of Evaluation: 18:00 - Subjective Subjective: complaining of pain left hip. XRT started for pain palliation. Objective - Vital Signs/Intake and Output Vital Signs (last 24 hours): Temp Pulse Resp BP Pulse Ox 97.4 F L 57 L 20 127/68 97 03/19/17 16:14 03/19/17 16:14 03/19/17 16:14 03/19/17 16:14 03/19/17 16:14 Intake and Output: 03/19/17 03/20/17 18:59 06:59 Intake Total 1400 540 Output Total 600 525 Balance 800 15 - Medications Medications: Current Medications Atenolol (Tenormin) 25 mg PO DAILY [facility] Last Admin: 03/19/17 10:27 Dose: 25 mg Docusate Sodium (Colace) 100 mg PO BID [facility] Last Admin: 03/19/17 17:42 Dose: Not Given Fentanyl (Duragesic) 1 patch TD Q72H [facility] Last Admin: 03/18/17 12:47 Dose: 1 patch Ketorolac Tromethamine (Toradol) 15 mg IVP Q6 PRN PRN Reason: Pain, moderate (4-7) Last Admin: 03/19/17 20:08 Dose: 15 mg Losartan Potassium (Cozaar) 25 mg PO DAILY [facility] Last Admin: 03/19/17 10:28 Dose: 25 mg Meclizine HCl (Antivert) 25 mg PO Q6 PRN PRN Reason: Dizziness Last Admin: 03/16/17 12:26 Dose: 25 mg Ondansetron HCl (Zofran Inj) 4 mg IVP Q4H PRN PRN Reason: Nausea/Vomiting Last Admin: 03/16/17 10:51 Dose: 4 mg Pantoprazole Sodium (Protonix Inj) 40 mg IVP DAILY [facility] Last Admin: 03/19/17 10:26 Dose: 40 mg - Labs Labs: 03/17/17 07:30 03/17/17 07:30 PT 35.4 Seconds (9.9-11.8) H* 03/14/17 12:00 INR 3.28 (0.93-1.08) H 03/14/17 12:00 APTT 39.9 Seconds (23.7-30.8) H 03/14/17 12:00 - Head Exam Head Exam: ATRAUMATIC, NORMAL INSPECTION, NORMOCEPHALIC - Eye Exam Eye Exam: Normal appearance - Neck Exam Neck Exam: Normal Inspection - Respiratory Exam Respiratory Exam: Clear to Ausculation Bilateral, NORMAL BREATHING PATTERN - Cardiovascular Exam Cardiovascular Exam: +S1, +S2 - GI/Abdominal Exam GI & Abdominal Exam: Soft, Normal Bowel Sounds - Back Exam Back Exam: NORMAL INSPECTION - Neurological Exam Neurological Exam: Alert, Awake, Oriented x3 - Skin Skin Exam: Normal Color, Warm Assessment and Plan - Assessment and Plan (Free Text) Assessment: 1. Stage IV renal cancer. XRT to pelvis for pain palliation. Will need PT for gait improvement. Social issues, non compliant. will consider oral targeted treatment Pazopinib if willing to come to office for follow up visits. Currently refusing saying that he cannot go any where, no help at home. No phone where he can be contacted. 2. pain : better controlled on current meds. 3. public health social worker consult, Thank you Dr. Doyle for allowing us to participate in his care.
--- NOTE | 2017-03-20 16:49 | CP.PCM.PN ---
Subjective - Date & Time of Evaluation Date of Evaluation: 03/20/17 Time of Evaluation: 09:30 - Subjective Subjective: c/o L inguinal pain, reamins unable to walk Objective - Vital Signs/Intake and Output Vital Signs (last 24 hours): Temp Pulse Resp BP Pulse Ox 98.5 F 61 20 150/86 96 03/20/17 08:18 03/20/17 11:03 03/20/17 08:18 03/20/17 11:03 03/20/17 08:18 Intake and Output: 03/20/17 03/20/17 06:59 18:59 Intake Total 780 640 Output Total 1025 401 Balance -245 239 - Medications Medications: Current Medications Atenolol (Tenormin) 25 mg PO DAILY [facility] Last Admin: 03/20/17 11:02 Dose: 25 mg Docusate Sodium (Colace) 100 mg PO BID [facility] Last Admin: 03/20/17 11:03 Dose: 100 mg Fentanyl (Duragesic) 1 patch TD Q72H [facility] Last Admin: 03/18/17 12:47 Dose: 1 patch Ketorolac Tromethamine (Toradol) 15 mg IVP Q6 PRN PRN Reason: Pain, moderate (4-7) Last Admin: 03/19/17 20:08 Dose: 15 mg Losartan Potassium (Cozaar) 25 mg PO DAILY [facility] Last Admin: 03/20/17 11:03 Dose: 25 mg Meclizine HCl (Antivert) 25 mg PO Q6 PRN PRN Reason: Dizziness Last Admin: 03/16/17 12:26 Dose: 25 mg Ondansetron HCl (Zofran Inj) 4 mg IVP Q4H PRN PRN Reason: Nausea/Vomiting Last Admin: 03/16/17 10:51 Dose: 4 mg Pantoprazole Sodium (Protonix Inj) 40 mg IVP DAILY [facility] Last Admin: 03/20/17 11:01 Dose: 40 mg - Labs Labs: 03/17/17 07:30 03/17/17 07:30 PT 35.4 Seconds (9.9-11.8) H* 03/14/17 12:00 INR 3.28 (0.93-1.08) H 03/14/17 12:00 APTT 39.9 Seconds (23.7-30.8) H 03/14/17 12:00 - Respiratory Exam Respiratory Exam: Clear to Ausculation Bilateral, NORMAL BREATHING PATTERN - Cardiovascular Exam Cardiovascular Exam: REGULAR RHYTHM - GI/Abdominal Exam GI & Abdominal Exam: Soft, Normal Bowel Sounds - Extremities Exam Extremities Exam: Normal Inspection - Neurological Exam Neurological Exam: Abnormal Gait, Alert, Awake - Skin Skin Exam: Dry, Warm Assessment and Plan (1) Small bowel obstruction Status: Resolved (2) Aortic valve replaced Status: Chronic (3) Atrial fibrillation Status: Chronic (4) Metastatic renal cell carcinoma Status: Chronic (5) Intractable pain Status: Acute (6) Hypertension Status: Chronic - Assessment and Plan (Free Text) Plan: for RT, oncology follow-up, SW for dc planning
[2017-03-20 18:57] LABS: INR 1.11 (0.93-1.08)
--- NOTE | 2017-03-20 23:59 | CP.PCM.PN ---
Subjective - Date & Time of Evaluation Date of Evaluation: 03/20/17 Time of Evaluation: 09:00 - Subjective Subjective: Complaining of difficulty walking Objective - Vital Signs/Intake and Output Vital Signs (last 24 hours): Temp Pulse Resp BP Pulse Ox 97.9 F 50 L 20 116/81 98 03/20/17 16:00 03/20/17 16:00 03/20/17 16:00 03/20/17 16:00 03/20/17 16:00 Intake and Output: 03/20/17 03/21/17 18:59 06:59 Intake Total 640 780 Output Total 401 600 Balance 239 180 - Medications Medications: Current Medications Atenolol (Tenormin) 25 mg PO DAILY [facility] Last Admin: 03/20/17 11:02 Dose: 25 mg Docusate Sodium (Colace) 100 mg PO BID [facility] Last Admin: 03/20/17 17:14 Dose: 100 mg Fentanyl (Duragesic) 1 patch TD Q72H [facility] Last Admin: 03/18/17 12:47 Dose: 1 patch Ketorolac Tromethamine (Toradol) 15 mg IVP Q6 PRN PRN Reason: Pain, moderate (4-7) Last Admin: 03/20/17 20:32 Dose: 15 mg Losartan Potassium (Cozaar) 25 mg PO DAILY [facility] Last Admin: 03/20/17 11:03 Dose: 25 mg Meclizine HCl (Antivert) 25 mg PO Q6 PRN PRN Reason: Dizziness Last Admin: 03/16/17 12:26 Dose: 25 mg Ondansetron HCl (Zofran Inj) 4 mg IVP Q4H PRN PRN Reason: Nausea/Vomiting Last Admin: 03/16/17 10:51 Dose: 4 mg Pantoprazole Sodium (Protonix Inj) 40 mg IVP DAILY [facility] Last Admin: 03/20/17 11:01 Dose: 40 mg - Labs Labs: 03/17/17 07:30 03/17/17 07:30 PT 12.0 Seconds (9.9-11.8) H 03/20/17 18:43 INR 1.11 (0.93-1.08) H 03/20/17 18:43 APTT 39.9 Seconds (23.7-30.8) H 03/14/17 12:00 - Constitutional Appears: Non-toxic - Head Exam Head Exam: ATRAUMATIC, NORMAL INSPECTION, NORMOCEPHALIC - Eye Exam Eye Exam: Normal appearance Pupil Exam: NORMAL ACCOMODATION - ENT Exam ENT Exam: Normal Exam - Neck Exam Neck Exam: Normal Inspection - Respiratory Exam Respiratory Exam: Clear to Ausculation Bilateral, NORMAL BREATHING PATTERN - Cardiovascular Exam Cardiovascular Exam: REGULAR RHYTHM, +S1, +S2 - GI/Abdominal Exam GI & Abdominal Exam: Soft, Normal Bowel Sounds - Back Exam Back Exam: NORMAL INSPECTION - Neurological Exam Neurological Exam: Alert, Oriented x3 - Skin Skin Exam: Normal Color Assessment and Plan - Assessment and Plan (Free Text) Assessment: 1. 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 Gait dysfunction 4.Non compliance Plan : discussed with social sciences chair. She will contact the sister who lives in [place]. he does not come to office visits, oral kinase agent will be considered for stage IV renal cancer if he is willing for office follow up.
[2017-03-21] MEDS: Pantoprazole 40 mg EC Tab PO SCH (07:07)
--- NOTE | 2017-03-21 08:55 | PN ---
DATE: 03/21/2017 SUBJECTIVE: He is comfortable in bed, in no acute distress. Left hip pain is decreased. He is still not able to ambulate. No chest pain. No shortness of breath. REVIEW OF SYSTEMS: As per HPI. Rest of 12-point review of systems reviewed and negative. LABORATORY DATA: None, current. MEDICATIONS: He is on atenolol 25 mg daily, fentanyl patch, Toradol p.r.n., Cozaar 25 mg daily, Zofran 4 mg IV p.r.n., Protonix 40 mg daily. PHYSICAL EXAMINATION: GENERAL: Comfortable in bed, in no acute distress. VITAL SIGNS: Temperature is 98.7, heart rate is 80 per minute, blood pressure 120/70. HEENT: Normal. CHEST: Air entry present and equal bilaterally. No added sound. CARDIOVASCULAR: S1 and S2 normal. No murmur, no gallop. ABDOMEN: Soft and nontender. No hepatosplenomegaly. EXTREMITIES: No edema. CENTRAL NERVOUS SYSTEM: Alert and oriented x3. No focal, sensory or motor deficit. ASSESSMENT AND PLAN: 1. Stage IV renal cancer. Currently undergoing palliative radiation to the left hip pain. I offered the treatment with pazopinib, he refused follow up in office. palliative care consult requested. 2. Compliance issue. 3. Pain is controlled with the current medications. Discussed with the staff nurse. Elayne Bal MD MTDD
--- NOTE | 2017-03-21 09:45 | CP.PCM.PN ---
Subjective - Date & Time of Evaluation Date of Evaluation: 03/21/17 Time of Evaluation: 09:25 - Subjective Subjective: NAD, receiving RT, c/o L inguinal pain, difficulty ambulating Objective - Vital Signs/Intake and Output Vital Signs (last 24 hours): Temp Pulse Resp BP Pulse Ox 98.2 F 57 L 20 158/92 H 97 03/21/17 07:30 03/21/17 07:30 03/21/17 07:30 03/21/17 07:30 03/21/17 07:30 Intake and Output: 03/21/17 03/21/17 06:59 18:59 Intake Total 1020 Output Total 1600 Balance -580 - Medications Medications: Current Medications Atenolol (Tenormin) 25 mg PO DAILY [facility] Last Admin: 03/20/17 11:02 Dose: 25 mg Docusate Sodium (Colace) 100 mg PO BID [facility] Last Admin: 03/20/17 17:14 Dose: 100 mg Fentanyl (Duragesic) 1 patch TD Q72H [facility] Last Admin: 03/18/17 12:47 Dose: 1 patch Ketorolac Tromethamine (Toradol) 15 mg IVP Q6 PRN PRN Reason: Pain, moderate (4-7) Last Admin: 03/21/17 03:40 Dose: 15 mg Losartan Potassium (Cozaar) 50 mg PO DAILY [facility] Meclizine HCl (Antivert) 25 mg PO Q6 PRN PRN Reason: Dizziness Last Admin: 03/16/17 12:26 Dose: 25 mg Ondansetron HCl (Zofran Inj) 4 mg IVP Q4H PRN PRN Reason: Nausea/Vomiting Last Admin: 03/16/17 10:51 Dose: 4 mg Pantoprazole Sodium (Protonix Ec Tab) 40 mg PO 0600 [facility] Last Admin: 03/21/17 07:07 Dose: 40 mg - Labs Labs: 03/17/17 07:30 03/17/17 07:30 PT 12.0 Seconds (9.9-11.8) H 03/20/17 18:43 INR 1.11 (0.93-1.08) H 03/20/17 18:43 APTT 39.9 Seconds (23.7-30.8) H 03/14/17 12:00 - Respiratory Exam Respiratory Exam: Clear to Ausculation Bilateral, NORMAL BREATHING PATTERN - Cardiovascular Exam Cardiovascular Exam: REGULAR RHYTHM - GI/Abdominal Exam GI & Abdominal Exam: Soft, Normal Bowel Sounds - Extremities Exam Extremities Exam: Normal Inspection - Neurological Exam Neurological Exam: Abnormal Gait, Alert, Awake - Skin Skin Exam: Dry, Warm Assessment and Plan (1) Small bowel obstruction Status: Resolved (2) Aortic valve replaced Status: Chronic (3) Atrial fibrillation Status: Chronic (4) Metastatic renal cell carcinoma Status: Chronic (5) Intractable pain Status: Acute (6) Hypertension Status: Chronic - Assessment and Plan (Free Text) Plan: continue RT, PT, increase Losartan to 50mg for increased bp, restart warfarin, monitor PT/INR, continue onc and rad/onc follow-up, SW for dc planning
--- NOTE | 2017-03-22 08:45 | CP.PCM.PN ---
Subjective - Date & Time of Evaluation Date of Evaluation: 03/22/17 Time of Evaluation: 08:30 - Subjective Subjective: c/o L inguinal/hip pain, unable to ambulate Objective - Vital Signs/Intake and Output Vital Signs (last 24 hours): Temp Pulse Resp BP Pulse Ox 97.6 F 44 L 18 132/74 91 L 03/22/17 07:30 03/22/17 07:30 03/22/17 07:30 03/22/17 07:30 03/22/17 07:30 Intake and Output: 03/22/17 03/22/17 06:59 18:59 Intake Total 640 Output Total 650 600 Balance -10 -600 - Medications Medications: Current Medications Atenolol (Tenormin) 25 mg PO DAILY [facility] Last Admin: 03/21/17 10:28 Dose: 25 mg Docusate Sodium (Colace) 100 mg PO BID [facility] Last Admin: 03/21/17 17:40 Dose: Not Given Fentanyl (Duragesic) 1 patch TD Q72H [facility] Last Admin: 03/21/17 11:21 Dose: 1 patch Ketorolac Tromethamine (Toradol) 15 mg IVP Q6 PRN PRN Reason: Pain, moderate (4-7) Last Admin: 03/21/17 22:17 Dose: 15 mg Losartan Potassium (Cozaar) 50 mg PO DAILY [facility] Last Admin: 03/21/17 10:27 Dose: 50 mg Meclizine HCl (Antivert) 25 mg PO Q6 PRN PRN Reason: Dizziness Last Admin: 03/16/17 12:26 Dose: 25 mg Ondansetron HCl (Zofran Inj) 4 mg IVP Q4H PRN PRN Reason: Nausea/Vomiting Last Admin: 03/16/17 10:51 Dose: 4 mg Pantoprazole Sodium (Protonix Ec Tab) 40 mg PO 0600 [facility] Last Admin: 03/21/17 07:07 Dose: 40 mg Warfarin Sodium (Coumadin) 5 mg PO 1800 [facility] PRN Reason: Protocol Last Admin: 03/21/17 17:27 Dose: 5 mg - Labs Labs: 03/17/17 07:30 03/17/17 07:30 PT 12.0 Seconds (9.9-11.8) H 03/20/17 18:43 INR 1.11 (0.93-1.08) H 03/20/17 18:43 APTT 39.9 Seconds (23.7-30.8) H 03/14/17 12:00 - Respiratory Exam Respiratory Exam: Clear to Ausculation Bilateral, NORMAL BREATHING PATTERN - Cardiovascular Exam Cardiovascular Exam: REGULAR RHYTHM - GI/Abdominal Exam GI & Abdominal Exam: Soft, Normal Bowel Sounds - Neurological Exam Neurological Exam: Abnormal Gait, Alert, Awake - Skin Skin Exam: Dry, Warm Assessment and Plan (1) Small bowel obstruction Status: Resolved (2) Aortic valve replaced Status: Chronic (3) Atrial fibrillation Status: Chronic (4) Metastatic renal cell carcinoma Status: Chronic (5) Intractable pain Assessment & Plan: continue RT, oncology follow-up, SW for DC planning Status: Acute (6) Hypertension Status: Chronic
[2017-03-22] MEDS: Pantoprazole 40 mg EC Tab PO SCH (11:15)
[2017-03-23] MEDS: Pantoprazole 40 mg EC Tab PO SCH (08:30)
--- NOTE | 2017-03-23 11:05 | CP.PCM.PN ---
Subjective - Date & Time of Evaluation Date of Evaluation: 03/23/17 Time of Evaluation: 11:00 - Subjective Subjective: c/o L inguinal/hip pain, unable to ambulate Objective - Vital Signs/Intake and Output Vital Signs (last 24 hours): Temp Pulse Resp BP Pulse Ox 98 F 63 18 170/92 H 97 03/23/17 07:51 03/23/17 07:51 03/23/17 07:51 03/23/17 09:21 03/23/17 07:51 - Medications Medications: Current Medications Atenolol (Tenormin) 50 mg PO DAILY [facility] Docusate Sodium (Colace) 100 mg PO BID [facility] Last Admin: 03/23/17 09:20 Dose: 100 mg Fentanyl (Duragesic) 1 patch TD Q72H [facility] Last Admin: 03/21/17 11:21 Dose: 1 patch Ketorolac Tromethamine (Toradol) 15 mg IVP Q6 PRN PRN Reason: Pain, moderate (4-7) Last Admin: 03/23/17 03:37 Dose: 15 mg Losartan Potassium (Cozaar) 50 mg PO DAILY [facility] Last Admin: 03/23/17 09:20 Dose: 50 mg Meclizine HCl (Antivert) 25 mg PO Q6 PRN PRN Reason: Dizziness Last Admin: 03/16/17 12:26 Dose: 25 mg Ondansetron HCl (Zofran Inj) 4 mg IVP Q4H PRN PRN Reason: Nausea/Vomiting Last Admin: 03/16/17 10:51 Dose: 4 mg Pantoprazole Sodium (Protonix Ec Tab) 40 mg PO 0600 [facility] Last Admin: 03/23/17 08:30 Dose: 40 mg Warfarin Sodium (Coumadin) 5 mg PO 1800 [facility] PRN Reason: Protocol Last Admin: 03/22/17 17:48 Dose: 5 mg - Labs Labs: 03/17/17 07:30 03/17/17 07:30 PT 12.0 Seconds (9.9-11.8) H 03/20/17 18:43 INR 1.11 (0.93-1.08) H 03/20/17 18:43 APTT 39.9 Seconds (23.7-30.8) H 03/14/17 12:00 - Respiratory Exam Respiratory Exam: Clear to Ausculation Bilateral, NORMAL BREATHING PATTERN - Cardiovascular Exam Cardiovascular Exam: REGULAR RHYTHM - GI/Abdominal Exam GI & Abdominal Exam: Soft, Normal Bowel Sounds - Neurological Exam Neurological Exam: Abnormal Gait, Alert, Awake - Skin Skin Exam: Dry, Warm Assessment and Plan (1) Small bowel obstruction Status: Resolved (2) Aortic valve replaced Status: Chronic (3) Atrial fibrillation Status: Chronic (4) Metastatic renal cell carcinoma Status: Chronic (5) Intractable pain Status: Acute (6) Hypertension Status: Chronic - Assessment and Plan (Free Text) Plan: continue RT/oncology f/u, PT, SW for d/c planning
--- NOTE | 2017-03-23 21:06 | CP.PCM.PN ---
Subjective - Date & Time of Evaluation Date of Evaluation: 03/22/17 Time of Evaluation: 10:00 - Subjective Subjective: DATE: 03/22/2017 SUBJECTIVE: Left hip pain is decreased. He is still not able to ambulate. No chest pain. No shortness of breath. REVIEW OF SYSTEMS: As per HPI. Rest of 12-point review of systems reviewed and negative. LABORATORY DATA: None, current. MEDICATIONS: He is on atenolol 25 mg daily, fentanyl patch, Toradol p.r.n., Cozaar 25 mg daily, Zofran 4 mg IV p.r.n., Protonix 40 mg daily. PHYSICAL EXAMINATION: GENERAL: Comfortable in bed, in no acute distress. VITAL SIGNS: reviewed. HEENT: Normal. CHEST: Air entry present and equal bilaterally. No added sound. CARDIOVASCULAR: S1 and S2 normal. No murmur, no gallop. ABDOMEN: Soft and nontender. No hepatosplenomegaly. EXTREMITIES: No edema. CENTRAL NERVOUS SYSTEM: Alert and oriented x3. No focal, sensory or motor deficit. ASSESSMENT AND PLAN: 1. Stage IV renal cancer. Currently undergoing palliative radiation to the left hip pain. I offered the treatment with pazopinib, he refused follow up in office. palliative care consult requested. 2. Compliance issue. 3. Pain is controlled with the current medications. Discussed with the staff nurse. 4.prosthetic Aortic valve . Elayne Bal MD Objective - Vital Signs/Intake and Output Vital Signs (last 24 hours): Temp Pulse Resp BP Pulse Ox 98.1 F 56 L 18 125/75 94 L 03/23/17 16:00 03/23/17 16:00 03/23/17 16:00 03/23/17 16:00 03/23/17 16:00 Intake and Output: 03/23/17 03/24/17 18:59 06:59 Intake Total 960 Output Total 1400 Balance -440 - Medications Medications: Current Medications Atenolol (Tenormin) 50 mg PO DAILY [facility] Docusate Sodium (Colace) 100 mg PO BID [facility] Last Admin: 03/23/17 17:46 Dose: 100 mg Fentanyl (Duragesic) 1 patch TD Q72H [facility] Last Admin: 03/21/17 11:21 Dose: 1 patch Ketorolac Tromethamine (Toradol) 15 mg IVP Q6 PRN PRN Reason: Pain, moderate (4-7) Last Admin: 03/23/17 03:37 Dose: 15 mg Losartan Potassium (Cozaar) 50 mg PO DAILY [facility] Last Admin: 03/23/17 09:20 Dose: 50 mg Meclizine HCl (Antivert) 25 mg PO Q6 PRN PRN Reason: Dizziness Last Admin: 03/16/17 12:26 Dose: 25 mg Ondansetron HCl (Zofran Inj) 4 mg IVP Q4H PRN PRN Reason: Nausea/Vomiting Last Admin: 03/16/17 10:51 Dose: 4 mg Pantoprazole Sodium (Protonix Ec Tab) 40 mg PO 0600 [facility] Last Admin: 03/23/17 08:30 Dose: 40 mg Warfarin Sodium (Coumadin) 5 mg PO 1800 [facility] PRN Reason: Protocol Last Admin: 03/23/17 17:46 Dose: 5 mg - Labs Labs: 03/17/17 07:30 03/17/17 07:30 PT 12.0 Seconds (9.9-11.8) H 03/20/17 18:43 INR 1.11 (0.93-1.08) H 03/20/17 18:43 APTT 39.9 Seconds (23.7-30.8) H 03/14/17 12:00
[2017-03-24] MEDS: Pantoprazole 40 mg EC Tab PO SCH (05:37)
--- NOTE | 2017-03-24 10:04 | CP.PCM.PN ---
Subjective - Date & Time of Evaluation Date of Evaluation: 03/24/17 Time of Evaluation: 10:00 - Subjective Subjective: c/o pain L hip/inguinal area, remains unable to ambulate Objective - Vital Signs/Intake and Output Vital Signs (last 24 hours): Temp Pulse Resp BP Pulse Ox 97.4 F L 56 L 20 145/86 97 03/24/17 07:00 03/24/17 07:00 03/24/17 07:00 03/24/17 07:00 03/24/17 07:00 Intake and Output: 03/24/17 03/24/17 06:59 18:59 Intake Total 240 260 Output Total 600 400 Balance -360 -140 - Medications Medications: Current Medications Atenolol (Tenormin) 50 mg PO DAILY [facility] Docusate Sodium (Colace) 100 mg PO BID [facility] Last Admin: 03/23/17 17:46 Dose: 100 mg Fentanyl (Duragesic) 1 patch TD Q72H [facility] Last Admin: 03/21/17 11:21 Dose: 1 patch Ketorolac Tromethamine (Toradol) 15 mg IVP Q6 PRN PRN Reason: Pain, moderate (4-7) Last Admin: 03/23/17 22:12 Dose: 15 mg Losartan Potassium (Cozaar) 50 mg PO DAILY [facility] Last Admin: 03/23/17 09:20 Dose: 50 mg Meclizine HCl (Antivert) 25 mg PO Q6 PRN PRN Reason: Dizziness Last Admin: 03/16/17 12:26 Dose: 25 mg Ondansetron HCl (Zofran Inj) 4 mg IVP Q4H PRN PRN Reason: Nausea/Vomiting Last Admin: 03/16/17 10:51 Dose: 4 mg Pantoprazole Sodium (Protonix Ec Tab) 40 mg PO 0600 [facility] Last Admin: 03/24/17 05:37 Dose: 40 mg Warfarin Sodium (Coumadin) 5 mg PO 1800 [facility] PRN Reason: Protocol Last Admin: 03/23/17 17:46 Dose: 5 mg - Labs Labs: 03/17/17 07:30 03/17/17 07:30 PT 12.0 Seconds (9.9-11.8) H 03/20/17 18:43 INR 1.11 (0.93-1.08) H 03/20/17 18:43 APTT 39.9 Seconds (23.7-30.8) H 03/14/17 12:00 - Respiratory Exam Respiratory Exam: NORMAL BREATHING PATTERN - Cardiovascular Exam Cardiovascular Exam: REGULAR RHYTHM - GI/Abdominal Exam GI & Abdominal Exam: Soft, Normal Bowel Sounds - Extremities Exam Extremities Exam: Normal Inspection - Neurological Exam Neurological Exam: Abnormal Gait, Alert, Awake - Skin Skin Exam: Dry, Warm Assessment and Plan (1) Small bowel obstruction Status: Resolved (2) Aortic valve replaced Status: Chronic (3) Atrial fibrillation Status: Chronic (4) Metastatic renal cell carcinoma Status: Chronic (5) Intractable pain Status: Acute (6) Hypertension Status: Chronic - Assessment and Plan (Free Text) Plan: continue RT, oncology/rad-onc f/u, for poss transfer to TCU
[2017-03-25] MEDS: Pantoprazole 40 mg EC Tab PO SCH (06:12)
--- NOTE | 2017-03-25 08:58 | CP.PCM.PN ---
Subjective - Date & Time of Evaluation Date of Evaluation: 03/25/17 Time of Evaluation: 08:20 - Subjective Subjective: c/o severe L inguinal/hip pain, unable to transfer or ambulate independently Objective - Vital Signs/Intake and Output Vital Signs (last 24 hours): Temp Pulse Resp BP Pulse Ox 97.7 F 47 L 20 137/84 95 03/25/17 07:30 03/25/17 07:30 03/25/17 07:30 03/25/17 07:30 03/25/17 07:30 Intake and Output: 03/25/17 03/25/17 06:59 18:59 Intake Total 480 Output Total 1025 Balance -545 - Medications Medications: Current Medications Atenolol (Tenormin) 50 mg PO DAILY [facility] Last Admin: 03/24/17 10:05 Dose: 50 mg Docusate Sodium (Colace) 100 mg PO BID [facility] Last Admin: 03/24/17 18:09 Dose: 100 mg Fentanyl (Duragesic) 1 patch TD Q72H [facility] Last Admin: 03/24/17 19:52 Dose: 1 patch Ketorolac Tromethamine (Toradol) 15 mg IVP Q6 PRN PRN Reason: Pain, moderate (4-7) Last Admin: 03/25/17 00:55 Dose: 15 mg Losartan Potassium (Cozaar) 50 mg PO DAILY [facility] Last Admin: 03/24/17 10:06 Dose: 50 mg Meclizine HCl (Antivert) 25 mg PO Q6 PRN PRN Reason: Dizziness Last Admin: 03/16/17 12:26 Dose: 25 mg Ondansetron HCl (Zofran Inj) 4 mg IVP Q4H PRN PRN Reason: Nausea/Vomiting Last Admin: 03/16/17 10:51 Dose: 4 mg Pantoprazole Sodium (Protonix Ec Tab) 40 mg PO 0600 [facility] Last Admin: 03/25/17 06:12 Dose: 40 mg Warfarin Sodium (Coumadin) 5 mg PO 1800 [facility] PRN Reason: Protocol Last Admin: 03/24/17 18:09 Dose: 5 mg - Labs Labs: 03/17/17 07:30 03/17/17 07:30 PT 12.0 Seconds (9.9-11.8) H 03/20/17 18:43 INR 1.11 (0.93-1.08) H 03/20/17 18:43 APTT 39.9 Seconds (23.7-30.8) H 03/14/17 12:00 - Respiratory Exam Respiratory Exam: Clear to Ausculation Bilateral, NORMAL BREATHING PATTERN - Cardiovascular Exam Cardiovascular Exam: REGULAR RHYTHM - GI/Abdominal Exam GI & Abdominal Exam: Soft, Normal Bowel Sounds - Neurological Exam Neurological Exam: Abnormal Gait, Alert, Awake - Skin Skin Exam: Dry, Warm Assessment and Plan (1) Small bowel obstruction Status: Resolved (2) Aortic valve replaced Status: Chronic (3) Atrial fibrillation Status: Chronic (4) Metastatic renal cell carcinoma Status: Chronic (5) Intractable pain Status: Acute (6) Hypertension Status: Chronic - Assessment and Plan (Free Text) Plan: continue RT, oncology f/u, pain mgmt, SW for DC planning
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
[2017-03-26 08:42] LABS: INR 1.77 (0.93-1.08)
--- NOTE | 2017-03-26 09:20 | CP.PCM.PN ---
Subjective - Date & Time of Evaluation Date of Evaluation: 03/26/17 Time of Evaluation: 09:00 - Subjective Subjective: c/o severe L hip/inguinal pain, unable to walk Objective - Vital Signs/Intake and Output Vital Signs (last 24 hours): Temp Pulse Resp BP Pulse Ox 97.6 F 59 L 20 139/74 96 03/26/17 07:41 03/26/17 07:41 03/26/17 07:41 03/26/17 07:41 03/26/17 07:41 Intake and Output: 03/26/17 03/26/17 06:59 18:59 Intake Total 960 Output Total 1175 Balance -215 - Medications Medications: Current Medications Atenolol (Tenormin) 50 mg PO DAILY [facility] Last Admin: 03/25/17 09:04 Dose: 50 mg Docusate Sodium (Colace) 100 mg PO BID [facility] Last Admin: 03/25/17 17:02 Dose: Not Given Fentanyl (Duragesic) 1 patch TD Q72H [facility] Last Admin: 03/24/17 19:52 Dose: 1 patch Ketorolac Tromethamine (Toradol) 15 mg IVP Q6 PRN PRN Reason: Pain, moderate (4-7) Last Admin: 03/26/17 08:32 Dose: 15 mg Losartan Potassium (Cozaar) 50 mg PO DAILY [facility] Last Admin: 03/25/17 09:04 Dose: 50 mg Meclizine HCl (Antivert) 25 mg PO Q6 PRN PRN Reason: Dizziness Last Admin: 03/16/17 12:26 Dose: 25 mg Ondansetron HCl (Zofran Inj) 4 mg IVP Q4H PRN PRN Reason: Nausea/Vomiting Last Admin: 03/16/17 10:51 Dose: 4 mg Pantoprazole Sodium (Protonix Ec Tab) 40 mg PO 0600 [facility] Last Admin: 03/25/17 06:12 Dose: 40 mg Warfarin Sodium (Coumadin) 5 mg PO 1800 [facility] PRN Reason: Protocol Last Admin: 03/25/17 17:02 Dose: 5 mg - Labs Labs: 03/17/17 07:30 03/17/17 07:30 PT 19.1 Seconds (9.9-11.8) H 03/26/17 05:57 INR 1.77 (0.93-1.08) H 03/26/17 05:57 APTT 39.9 Seconds (23.7-30.8) H 03/14/17 12:00 - Respiratory Exam Respiratory Exam: Clear to Ausculation Bilateral, NORMAL BREATHING PATTERN - Cardiovascular Exam Cardiovascular Exam: REGULAR RHYTHM - GI/Abdominal Exam GI & Abdominal Exam: Soft, Normal Bowel Sounds - Neurological Exam Neurological Exam: Abnormal Gait, Alert, Awake - Skin Skin Exam: Dry, Warm Assessment and Plan (1) Small bowel obstruction Status: Resolved (2) Aortic valve replaced Status: Chronic (3) Atrial fibrillation Status: Chronic (4) Metastatic renal cell carcinoma Status: Chronic (5) Intractable pain Assessment & Plan: continue RT, pain mgmt, orthoedic surg consult Status: Acute (6) Hypertension Status: Chronic
--- NOTE | 2017-03-26 13:55 | RAD ---
PROCEDURE: Radiographs of the pelvis. HISTORY: path fx COMPARISON: None. FINDINGS: BONES: The pelvic ring is intact. There is diffuse bone demineralization. There is asymmetric focal bone demineralization in the left intertrochanteric region with permeative pattern. There is no acute displaced fracture or bone destruction. JOINTS: There is mild degenerative osteoarthrosis in the hip joints, worse on the right. The sacroiliac joints are normal. OTHER FINDINGS: There atherosclerotic vascular calcifications. IMPRESSION: Asymmetric focal demineralization in the left intertrochanteric region with permeative pattern. The differential considerations include lymphoma/ leukemia, plasmacytoma and metastasis. No definite evidence of displaced pathologic fracture. An MRI of the left hip with intravenous contrast would be helpful to exclude occult fracture.
--- NOTE | 2017-03-26 13:57 | RAD ---
PROCEDURE: Left Femur Radiographs. HISTORY: path fx COMPARISON: None. TECHNIQUE: AP and Lateral Radiographs of the left femur. FINDINGS: FEMUR: There is focal demineralization in the intertrochanteric region with permeative pattern. There is no acute displaced fracture. SOFT TISSUES: Normal. OTHER FINDINGS: Atherosclerotic vascular calcifications are present. IMPRESSION: Focal demineralization and intertrochanteric region with permeative pattern. The differential considerations include lymphoma/leukemia, plasmacytoma and metastasis. MRI with intravenous contrast is recommended for further evaluation.
--- NOTE | 2017-03-26 13:58 | RAD ---
PROCEDURE: Right Femur Radiographs. HISTORY: Pain COMPARISON: None. TECHNIQUE: AP and Lateral Radiographs of the right femur. FINDINGS: FEMUR: There is a well-circumscribed osteolytic lesion in the anterior and right lateral distal femur. There is no acute displaced fracture. Bone alignment is normal. SOFT TISSUES: Normal. OTHER FINDINGS: Atherosclerotic vascular calcifications are present. IMPRESSION: Metastatic lesion in the anterior and right lateral distal femur. No radiographic evidence for pathologic fracture.
--- NOTE | 2017-03-26 17:36 | CT ---
PROCEDURE: CT pelvis bilateral hips HISTORY: Left Hip Lesion, Right Femur Lesion COMPARISON: March 26, 2017. Radiographs right hip TECHNIQUE: 2.5 mm axial acquisition and display. Coronal and sagittal reconstructions. Dose report (mGy-cm): 393.27 FINDINGS: Multiple lytic lesions visualized osseous structures includin. Correlate to the finding on plain film radiographs. There is lytic lesion destroying the cortex of the distal right femur. Soft tissue mass within intramedullary component extends to the vastus intermedius muscle. 2. Lytic lesions involving the super acetabular region of the right iliac bone. The finding is marked on the study for review. 3. Lytic lesion in the medial aspect of the acetabulum extending to the pelvic ring on the right. The finding is marked on the study for review. 4. Lytic lesion affecting the proximal left femur with expansion of an intramedullary canal and disruption of the cortex without obvious, apparent pathologic fracture. 5. Lytic lesion medial aspect of the acetabulum on the left. IMPRESSION: Multiple lytic lesions visualize pelvis and right femur. Based on size, location and cortical destruction the most worrisome lesion is in the inter trochanteric region of the proximal left femur extending to the sub trochanteric region. On the sagittal views suggestion of a pathologic fracture. This finding is marked on the study.
--- NOTE | 2017-03-26 18:54 | CON ---
ORTHOPEDIC CONSULT DATE: 03/26/2017 REQUESTED BY: Dr. Andrzej Doyle. LOCATION: Room 564, bed 1. HISTORY OF PRESENT ILLNESS: The patient has tremendous pain of his left hip and left femur with a previous history of kidney carcinoma, nephrectomy, and coronary artery disease with bypass. His pain is tremendous. Even though he was admitted on 03/16/2017, there is no x-ray at this time, so we are going to get an x-ray of his symptomatic left femur and pelvis and he already had a chest, and I will report back after I see the x-rays of his femur and pelvis as he might need surgery for prophylactic IM rodding if there is a pathologic fracture but I will determine that after I see the x-rays. soon after i saw the patient.xray where done, of femers and pelvis show lytic lesion of rt femer shaft and rt acetabulum and large lytic lesion of thesub troch area of the left that is causing the most pain as in an impenting fx will occur soon.this should have o profilactic im cameron to protect from a fx. Delfino Haynes DO MTDSelma
[2017-03-26] MEDS ORDERED: Oxycodone/Acetaminophen 10/325 mg Tab PO PRN (20:37)
[2017-03-26] MEDS: oxyCODONE 10 mg Immediate Release Tab PO PRN (21:07)
--- NOTE | 2017-03-26 21:56 | CON ---
DATE: 03/26/2017 REASON FOR CONSULTATION: Preop evaluation, risk stratification for left hip surgery, possible metastatic bone lesion and metastatic fracture, for metastatic renal cell carcinoma. BRIEF CLINICAL HISTORY: This is an active [id number] with past medical history significant for extensive use of tobacco abuse, alcohol abuse, history of chronic atrial fibrillation, on Coumadin, history of renal cell carcinoma, status post nephrectomy, history of now metastasis to the hip requiring open reduction and internal fixation for pathologic fracture, history of coronary artery disease, history of coronary implantation, mechanical aortic valve replacement, admitted with hip pain, found to be metastatic renal cell carcinoma. Denies any chest pain, shortness of breath, or any palpitation. PAST MEDICAL HISTORY: Significant for nephrectomy for renal cell cancer, history of [employer] mechanical valve conduit at [facility], date of operation 06/15/1992; history of chronic atrial fibrillation, history of noncompliance with medication. PREVIOUS CARDIAC WORKUP: As follows, history of severe aortic regurgitation, dilated aortic root, history of open heart surgery at [facility], status post placement of mechanical valve, name [employer]-Anderson mechanical valve implanted on 06/15/1992, "atrial Anderson mechanical valve conduit." Procedures done at [facility], 06/15/1992. Information obtained by calling [facility] from their medical record. History of chronic atrial fibrillation on Coumadin, multiple history of falls. Last the patient had a cardiac catheterization attempted, unable to do because of a coronary reimplantation, so the patient was sent for a CT angio to [facility] that shows a totally occluded RCA and coronary reimplantation, ejection fraction 38%with a patent LAD, patent circumflex, mild disease, and a totally occluded from LAD. IMPLANTING SURGEON: Norm Montana MD SOCIAL HISTORY: Active tobacco abuse, active alcohol abuse. PHYSICAL EXAMINATION VITAL SIGNS: As follows: Temperature afebrile, heart rate is 50, blood pressure 139/74. HEENT: PERRLA. Extraocular muscles intact. NECK: Supple. No carotid bruits or thyromegaly. CHEST: Clear to auscultation. HEART: S1 and S2 regular. ABDOMEN: Soft. EXTREMITIES: Clubbing and cyanosis negative. LABORATORY DATA: Blood workup as follows: WBC 5.1, hemoglobin 13.9, hematocrit 39.9, platelet count 221. Chemistry: Shows sodium 140, potassium 3.8, chloride 104, carbon dioxide of 28, anion gap of 12, BUN 11, creatinine 0.9. EKG, last one was on December 15 that shows atrial fibrillation, slow ventricular rate. Last echo, the patient had on 04/10/2016 showed left ventricular size normal, LVH hypertrophy, systolic function moderately decreased, ejection fraction 35% to 40%, mild to moderate dilated RV, RV systolic pressure reduced, mild tricuspid regurgitation, RV systolic pressure 34, prosthetic aortic valve appears well-seated, mitral regurgitation is mild, mechanical aortic prosthetic, status post AVR mechanical root, and the reimplantation of coronary at [facility]. IMPRESSION: A [id number]-male with a past medical history significant for severe aortic regurgitation in the past, status post [employer] mechanical valve and conduit replaced in [facility] in 1991, history of alcohol abuse, tobacco abuse, cardiomyopathy, most recent echocardiogram shows ejection fraction 35%, history of coronary reimplantation, totally occluded right coronary artery, very well collateral flow from left anterior descending artery and circumflex by CT angiogram, admitted with metastatic cancer, renal cell and pathological fracture of hip requiring internal fixation. Preoperative evaluation for surgery. INR today is 1.77. RECOMMENDATION: The patient with very high risk for procedure. Risk-benefit ratio is in the favor of surgery. The patient can go ahead to save the life, otherwise, try to treat conservatively. Overall, the patient's code status is DNR. If it is decided to treat conservatively, they will continue; otherwise, if the patient needs surgery for early mobilization, the patient can go ahead. No absolute contraindication to the surgery, has no evidence of arrhythmia, congestive heart failure, or ischemia, but the patient will be at high risk because of the comorbidity and coronary re-implantation of mechanical valve. The patient's INR is subtherapeutic. We will continue Coumadin and if the date is already set we will start heparin, discontinue Coumadin, and continue beta-zak. Thank you Dr. Doyle for providing us the opportunity in taking care of Denys Sparrow. Thank you Dr. Haynes for providing us the opportunity in taking care of patient Denys Sparrow. We will follow with you. Yoni Garcia MD [facility] # [id number]
[2017-03-27] MEDS: oxyCODONE 10 mg Immediate Release Tab PO PRN ×2 (00:58→06:08)
[2017-03-27] MEDS ORDERED: Enoxaparin 30 mg Syringe SC SCH (10:00)
[2017-03-27] MEDS: Enoxaparin 80 mg Syringe SC SCH (10:02)
[2017-03-27] MEDS: HYDROmorphone 1 mg/ml ISec IVP PRN ×2 (10:05→14:54)
[2017-03-27 11:41] LABS: BASO # 0.01 K/mm3 (0.0-2.0); BASO % 0.1 % (0.0-3.0); EOS # 0.2 (0.0-0.7); EOS % 2.9 % (1.5-5.0); GRAN # 5.95 (1.4-6.5); GRAN % 83.5 % (50.0-68.0); HEMATOCRIT 34.3 % (42.0-52.0); LYMPH # 0.4 (1.2-3.4); LYMPH % 5.5 % (22.0-35.0); MEAN CELL VOLUME 89.8 fl (80.0-105.0); MEAN CORPUSCULAR HEMOGLOBIN 31.4 pg (25.0-35.0); MONO # 0.6 (0.1-0.6); RED CELL DISTRIBUTION WIDTH 13.3 % (11.5-14.5); WHITE BLOOD COUNT 7.1 10^3/ul (4.5-11.0)
[2017-03-27 11:50] LABS: ALB/GLOB RATIO 1.5 (1.1-1.8); ALKALINE PHOSPHATASE 96 U/L (38-126); ALT/SGPT 46 U/L (7-56); AST/SGOT 31 U/L (17-59); BLOOD UREA NITROGEN 31 mg/dL (7-21); CALCIUM 9.9 mg/dL (8.4-10.5); CARBON DIOXIDE 25 mmol/L (21-33); CHLORIDE 98 mmol/L (95-110); GFR AFRICAN-AMERICAN > 60; GLUCOSE,RANDOM 140 mg/dL (70-110); SODIUM 134 mmol/L (132-148); TOTAL PROTEIN 7.1 g/dL (5.8-8.3)
--- NOTE | 2017-03-27 13:13 | RAD ---
HISTORY: pre op COMPARISON: 11/30/2016 FINDINGS: LUNGS: Current study apical lordotic. Left pleural-based opacity fluid versus mass are favored considerations. - appearance an interval change. PLEURA: Left lateral pleural-based masslike opacity -interval change. No pleural inferior effusion. No pneumothorax CARDIOVASCULAR: Cardiomegaly midline sternotomy. Apparent faint aortic valve prosthesis OSSEOUS STRUCTURES: No significant abnormalities. VISUALIZED UPPER ABDOMEN: Normal. OTHER FINDINGS: None. IMPRESSION: Interval left lateral pleural-based masslike opacity. Consider CT chest for further evaluation if not already known. Cardiomegaly -postop changes
--- NOTE | 2017-03-27 13:29 | CP.PCM.PN ---
Subjective - Date & Time of Evaluation Date of Evaluation: 03/27/17 Time of Evaluation: 09:30 - Subjective Subjective: c/o pain L hip, remains unable to ambulate Objective - Vital Signs/Intake and Output Vital Signs (last 24 hours): Temp Pulse Resp BP Pulse Ox 97.8 F 60 22 138/90 95 03/27/17 07:30 03/27/17 10:06 03/27/17 07:30 03/27/17 10:06 03/27/17 07:30 Intake and Output: 03/27/17 03/27/17 06:59 18:59 Intake Total 1020 Output Total 550 Balance 470 - Medications Medications: Current Medications Atenolol (Tenormin) 50 mg PO DAILY [facility] Last Admin: 03/27/17 10:06 Dose: 50 mg Docusate Sodium (Colace) 100 mg PO BID [facility] Last Admin: 03/27/17 10:03 Dose: Not Given Enoxaparin Sodium (Lovenox) 80 mg SC Q12H [facility] PRN Reason: Protocol Stop: 03/28/17 22:00 Last Admin: 03/27/17 10:02 Dose: Not Given Fentanyl (Duragesic) 1 patch TD Q72H [facility] Last Admin: 03/24/17 19:52 Dose: 1 patch Hydromorphone HCl (Dilaudid) 1 mg IVP Q4H PRN PRN Reason: Pain, severe (8-10) Last Admin: 03/27/17 10:05 Dose: 1 mg Vancomycin HCl (Vancomycin 1gm) 1 gm in 250 mls @ 167 mls/hr IVPB ONCE ONE PRN Reason: Protocol Stop: 03/29/17 08:29 Ketorolac Tromethamine (Toradol) 15 mg IVP Q6 PRN PRN Reason: Pain, moderate (4-7) Last Admin: 03/27/17 06:07 Dose: 15 mg Losartan Potassium (Cozaar) 50 mg PO DAILY [facility] Last Admin: 03/27/17 10:05 Dose: 50 mg Meclizine HCl (Antivert) 25 mg PO Q6 PRN PRN Reason: Dizziness Last Admin: 03/16/17 12:26 Dose: 25 mg Ondansetron HCl (Zofran Inj) 4 mg IVP Q4H PRN PRN Reason: Nausea/Vomiting Last Admin: 03/16/17 10:51 Dose: 4 mg Oxycodone HCl (Oxycodone Immediate Release Tab) 10 mg PO Q4H PRN PRN Reason: Pain, severe (8-10) Last Admin: 03/27/17 06:08 Dose: 10 mg Pantoprazole Sodium (Protonix Ec Tab) 40 mg PO 0600 [facility] Last Admin: 03/25/17 06:12 Dose: 40 mg - Labs Labs: 03/27/17 11:30 03/27/17 11:30 PT 19.1 Seconds (9.9-11.8) H 03/26/17 05:57 INR 1.77 (0.93-1.08) H 03/26/17 05:57 APTT 39.1 Seconds (23.7-30.8) H 03/27/17 11:30 - Respiratory Exam Respiratory Exam: Clear to Ausculation Bilateral, NORMAL BREATHING PATTERN - Cardiovascular Exam Cardiovascular Exam: REGULAR RHYTHM - GI/Abdominal Exam GI & Abdominal Exam: Soft, Normal Bowel Sounds - Neurological Exam Neurological Exam: Abnormal Gait, Alert, Awake - Skin Skin Exam: Dry, Warm Assessment and Plan (1) Small bowel obstruction Status: Resolved (2) Aortic valve replaced Status: Chronic (3) Atrial fibrillation Status: Chronic (4) Metastatic renal cell carcinoma Status: Chronic (5) Intractable pain Status: Acute (6) Hypertension Status: Chronic - Assessment and Plan (Free Text) Plan: ortho consult appreciated, for intramedullary cameron placement L femur on Saturday, pre-op eval
--- NOTE | 2017-03-27 13:57 | RAD ---
PROCEDURE: HISTORY: pre op COMPARISON: CT hip 03/26/2017 TECHNIQUE: Single portable supine view FINDINGS: . Interval complete fracture left inter trochanteric to sub trochanteric location. Pathological fracture suggested per prior abnormal bone mineralization here Left lateral bulging soft tissue swelling at the level the fracture and just inferior to it IMPRESSION: Interval complete fracture - left intertrochanteric to subtrochanteric level Fracture apex pointing left laterally. Left femoral head remains in acetabular fossa. Background left hip osteoarthrosis. Prominent left lateral soft tissue swelling
--- NOTE | 2017-03-27 14:27 | PN ---
DATE: REASON FOR CONSULTATION: Followup preop evaluation and risk stratification for left hip surgery, possible metastatic bone lesion, and metastatic fracture for metastatic renal cell carcinoma. SUBJECTIVE: The patient denies any chest pain, shortness of breath, any palpitation, sitting on bedside, having the breakfast. His next door neighbor is accompanied with the patient. OBJECTIVE: GENERAL: Not in apparent distress, soon going for radiation. VITAL SIGNS: Temperature afebrile, heart rate is 60, blood pressure 138/90. HEENT: PERRLA. Extraocular muscles intact. NECK: Supple. No carotid bruits. No thyromegaly. CHEST: Clear to auscultation. HEART: S1 and S2 regular. ABDOMEN: Soft. EXTREMITIES: Clubbing and cyanosis negative. LABORATORY DATA: Blood workup as follows: WBC 5.7, hemoglobin 13.1, hematocrit 39.9, platelet count 221. Chemistry: Shows sodium 140, potassium 3.0, chloride 104, carbon dioxide of 28, anion gap of 12, BUN 11, creatinine 0.9. IMPRESSION: A 27-rpsh-fem-male with past medical history significant for heavy alcohol abuse, severe aortic regurgitation, dilated root, open heart surgery [facility] with placement of mechanical valve, [employer] mechanical valve conduit on 06/15/1992. Information obtained from the database on the [employer] calling them, requiring long-term anticoagulation with coronary re-implantation. Last time, cardiac catheterization was attempted, unable to do a cardiac catheterization because of implantation of coronary, so the patient was sent to [facility] for CT angio that shows totally occluded right common iliac artery, well very collateralized from left anterior descending artery, ejection fraction 38%, mild disease in left anterior descending artery and circumflex. History of renal cell cancer, now admitted with multiple lytic lesions and metastatic lesion of stage IV cancer with no definite fracture on the right side pelvis or femur, but a strong suspicious of fracture of left femur. The patient requiring open reduction and internal fixation, possibly by Dr. Haynes. A cardiology consultation was called. The patient denies any chest pain, shortness of breath, any palpitation, though code status Do not Resuscitate/Do Not Intubate. The patient was on Coumadin, which is on hold, and INR is 1.77 as of yesterday. My recommendation is that since the patient has no definite evidence of ischemia, congestive heart failure, arrhythmia, no absolute contraindication, but overall the patient's condition and comorbidity put the patient very high risk for surgery for any kind of surgical intervention, but risk-benefit ratio is in the favor of the patient to having surgery and early embolization can put the patient in a better shape, so the patient can go surgery with high-risk. As I mentioned, no absolute contraindication for surgery, but will be high-risk. Discussed with Dr. Haynes, who will hold Coumadin, who will start Lovenox because of mechanical valve in the aortic position. We will hold 12 hours before the surgery and after the surgery we will resume back Lovenox and then later on Coumadin will be instituted. We will follow with you closely. Interim, continue losartan and continue beta-zak. We will follow with you. We will increase the Lovenox to 1 mg/kg q. 12 till night and follow up PT/INR, though it is subtherapeutic, and since the Coumadin is on hold, so we can start from today. We will follow closely. We will also give a gram of vancomycin one hour before the surgery because of prosthetic position. Thank you Dr. Haynes for providing us the opportunity in taking care of [place]. Yoni Garcia MD
--- NOTE | 2017-03-27 15:12 | PN ---
DATE: 03/27/2017 PREOPERATIVE REPORT LOCATION: Room #564, bed #1. SUBJECTIVE: The patient had all the x-rays. He has a CAT scan and plain x-ray showing that he has an imminent fracture of his left proximal femur which has to be addressed semi-urgently with an intramedullary cameron so the bone does not fracture. I have time on the surgical schedule for about 9:00 Saturday and then, we can secure the bone with an IM cameron to stop it from fracturing. He does have a lesion on the right femur and the right acetabulum. Hopefully, radiation therapy could be used for the impending fractures, but not as aggressive as the left proximal femur fracture which is ready to fracture. He has tremendous pain. Hopefully, we could do it this Saturday, that is the 03/29 at 9:00 in the morning. Delfino Haynes DO
[2017-03-27] MEDS ORDERED: Vancomycin 1gm in NS 250ml 1 GM/250 ML BAG IVPB ONE (15:24)
[2017-03-27] MEDS ORDERED: Vancomycin 1gm in NS 250ml 1 GM/250 ML BAG IVPB SCH (15:30)
[2017-03-27] MEDS ORDERED: Etomidate 20 mg/10ml Inj IV ONE (15:51)
[2017-03-27] MEDS ORDERED: Phenylephrine 10 mg/ml Inj ONE (15:51)
[2017-03-27] MEDS ORDERED: Rocuronium 10 mg/ml (5 ml) ONE (15:51)
[2017-03-27] MEDS ORDERED: ePHEDrine 50 mg/ml Inj ONE (15:51)
[2017-03-27] MEDS ORDERED: Succinylcholine 200 mg/10 ml Inj IV ONE (15:51)
[2017-03-27] MEDS ORDERED: Lidocaine 1% Inj (20ml) ONE (16:21)
[2017-03-27] MEDS ORDERED: Propofol 10 mg/ml Inj (20 ML) ONE (16:21)
[2017-03-27] MEDS ORDERED: Vancomycin 1gm in NS 250ml IVPB ONE (16:40)
[2017-03-27] MEDS ORDERED: Bupivacaine 0.5% Inj(30mL) ONE (16:46)
[2017-03-27] MEDS ORDERED: Sevoflurane - Inhalation Anesthetic Liq (250 ml) ONE (17:26)
[2017-03-27] MEDS ORDERED: Vancomycin 1 g Inj ONE (18:39)
[2017-03-27] MEDS ORDERED: HYDROmorphone 0.5 mg/0.5 ml ISec IVP PRN (19:36)
[2017-03-27] MEDS ORDERED: HYDROmorphone 0.5 mg/0.5 ml ISec ONE (19:37)
[2017-03-27] MEDS ORDERED: Lactated Ringer's 1,000 ML IV SCH (19:45)
--- NOTE | 2017-03-27 20:20 | OP ---
PROCEDURE DATE: 03/27/2017 PREOPERATIVE DIAGNOSIS: Pathologic fracture, left hip at the subtrochanteric area. POSTOPERATIVE DIAGNOSIS: Pathologic fracture, left hip at the subtrochanteric area. ASSEMBLY ASSOCIATE SURGEON: Aristides Hi DPM TYPE OF ANESTHESIA: General anesthesia, endotracheal tube. PROCEDURE: Open reduction and internal fixation and bone biopsy using [employer] nail by 400 mm long at 125 mm angle with 11 mm wide nail, and lag screw was 10.5 mm x 95 mm long and locked statically with 2 distal locking screws and one counter rotation screw proximally 85 mm long. DESCRIPTION OF PROCEDURE: The patient taken to OR, left hip was prepped and draped in a sterile fashion on the fracture table. Once the fracture was in traction, we could reduce it with gentle traction and rotation internal. X-ray was satisfactory. We then made a 2 cm incision proximal to greater trochanter by 5 cm, going through the fascia and then going into the great trochanter in the right direction to get the threaded-tip guidewire down the fracture through the fracture. Then, appropriate reaming was done with the 13.5 mm reamer to allow us putting the guidewire into the distal shaft, which was done and we measured that we would need a cameron 400 mm long, so we did appropriate reaming to 13 mm and put in a cameron 11 mm wide x 400 mm long. Once it was in good position, we took the traction of the impacted fracture and put in the lag screw with a second incision in line with the femoral head and neck. This was done with a guidewire showing good position and we put in the lag screw,which is 95 mm long x 10.5 mm. Then, we put in the second anchor rotation screw 75 mm long and that locked and controlled the rotation and the position of the proximal fragment and that was set at a 125-degree angle. Then, we locked the fracture distally with 2 locking screws in the distal portion of the shaft with the two openings of the cameron. This was done with 3.5 mm wide screws of appropriate length. X-ray showed good position of the impacted pathologic fracture. Four wounds were closed with 0 Vicryl deep layer, 2-0 Vicryl subcutaneous tissues, Nylon for skin, because we are going to send the patient to radiation therapy, put in a sterile dressing and the patient taken to recovery room in a good condition. Delfino Haynes DO [facility] # [id number] ZEB
--- NOTE | 2017-03-28 | CP.PCM.PN ---
Subjective - Date & Time of Evaluation Date of Evaluation: 03/27/17 Time of Evaluation: 17:00 - Subjective Subjective: he developed fracture left hip after returning from radiation. Taken to OR for surgical intervention. Objective - Vital Signs/Intake and Output Vital Signs (last 24 hours): Temp Pulse Resp BP Pulse Ox 98.4 F 67 18 157/82 H 95 03/27/17 20:00 03/27/17 20:00 03/27/17 20:00 03/27/17 20:00 03/27/17 20:00 Intake and Output: 03/27/17 03/28/17 18:59 06:59 Intake Total 300 Output Total 600 800 Balance -600 -500 - Medications Medications: Current Medications Atenolol (Tenormin) 50 mg PO DAILY [facility] Last Admin: 03/27/17 10:06 Dose: 50 mg Docusate Sodium (Colace) 100 mg PO BID [facility] Last Admin: 03/27/17 10:03 Dose: Not Given Enoxaparin Sodium (Lovenox) 80 mg SC Q12H [facility] PRN Reason: Protocol Stop: 03/28/17 22:00 Last Admin: 03/27/17 10:02 Dose: Not Given Fentanyl (Duragesic) 1 patch TD Q72H [facility] Last Admin: 03/24/17 19:52 Dose: 1 patch Hydromorphone HCl (Dilaudid) 1 mg IVP Q4H PRN PRN Reason: Pain, severe (8-10) Last Admin: 03/27/17 14:54 Dose: 1 mg Vancomycin HCl (Vancomycin 1gm) 1 gm in 250 mls @ 167 mls/hr IVPB ONCE ONE PRN Reason: Protocol Stop: 03/29/17 08:29 Ketorolac Tromethamine (Toradol) 15 mg IVP Q6 PRN PRN Reason: Pain, moderate (4-7) Last Admin: 03/27/17 06:07 Dose: 15 mg Losartan Potassium (Cozaar) 50 mg PO DAILY [facility] Last Admin: 03/27/17 10:05 Dose: 50 mg Meclizine HCl (Antivert) 25 mg PO Q6 PRN PRN Reason: Dizziness Last Admin: 03/16/17 12:26 Dose: 25 mg Ondansetron HCl (Zofran Inj) 4 mg IVP Q4H PRN PRN Reason: Nausea/Vomiting Last Admin: 03/16/17 10:51 Dose: 4 mg Oxycodone HCl (Oxycodone Immediate Release Tab) 10 mg PO Q4H PRN PRN Reason: Pain, severe (8-10) Last Admin: 03/27/17 06:08 Dose: 10 mg Pantoprazole Sodium (Protonix Ec Tab) 40 mg PO 0600 [facility] Last Admin: 03/25/17 06:12 Dose: 40 mg - Labs Labs: 03/27/17 11:30 03/27/17 11:30 PT 19.1 Seconds (9.9-11.8) H 03/26/17 05:57 INR 1.77 (0.93-1.08) H 03/26/17 05:57 APTT 39.1 Seconds (23.7-30.8) H 03/27/17 11:30 - Head Exam Head Exam: ATRAUMATIC, NORMAL INSPECTION, NORMOCEPHALIC - Eye Exam Pupil Exam: NORMAL ACCOMODATION - ENT Exam ENT Exam: Mucous Membranes Moist, Normal Exam - Neck Exam Neck Exam: Normal Inspection - Cardiovascular Exam Cardiovascular Exam: REGULAR RHYTHM, +S1, +S2 - GI/Abdominal Exam GI & Abdominal Exam: Soft, Normal Bowel Sounds - Neurological Exam Neurological Exam: Alert, Oriented x3 - Skin Skin Exam: Normal Color, Warm Assessment and Plan - Assessment and Plan (Free Text) Assessment: 1. Left femur fracture. OR today. discussed with Dr. Campoverde. 2. Renal cancer stage IV, non complaint. s/p nephrectomy. 3. Pain management. 4. prophylactic heparin 5000 units Q12, when cleared by ortho. Thank You Dr. jacob for allowing us to participate in his care.
[2017-03-28] MEDS: Enoxaparin 80 mg Syringe SC SCH ×2 (01:56→09:11)
[2017-03-28] MEDS: oxyCODONE 10 mg Immediate Release Tab PO PRN ×3 (01:59→17:12)
[2017-03-28] MEDS: Pantoprazole 40 mg EC Tab PO SCH (05:41)
[2017-03-28 06:25] LABS: BASO # 0.01 K/mm3 (0.0-2.0); BASO % 0.2 % (0.0-3.0); EOS # 0.1 (0.0-0.7); EOS % 1.6 % (1.5-5.0); GRAN # 5.23 (1.4-6.5); GRAN % 84.6 % (50.0-68.0); HEMATOCRIT 27.6 % (42.0-52.0); LYMPH # 0.4 (1.2-3.4); LYMPH % 7.1 % (22.0-35.0); MEAN CELL VOLUME 89.9 fl (80.0-105.0); MEAN CORPUSCULAR HEMOGLOBIN 30.6 pg (25.0-35.0); MEAN CORPUSCULAR HGB CONC 34.1 g/dl (31.0-37.0); MEAN PLATELET VOLUME 10.1 fl (7.0-11.0); MONO # 0.4 (0.1-0.6); MONO % 6.5 % (1.0-6.0); RED CELL DISTRIBUTION WIDTH 13.5 % (11.5-14.5); WHITE BLOOD COUNT 6.2 10^3/ul (4.5-11.0)
[2017-03-28 06:29] LABS: INR 2.94 (0.93-1.08)
[2017-03-28 07:02] LABS: ALB/GLOB RATIO 1.5 (1.1-1.8); ALKALINE PHOSPHATASE 73 U/L (38-126); ALT/SGPT 28 U/L (7-56); AST/SGOT 32 U/L (17-59); BILIRUBIN,TOTAL 1.2 mg/dL (0.2-1.3); BLOOD UREA NITROGEN 18 mg/dL (7-21); CALCIUM 8.4 mg/dL (8.4-10.5); CARBON DIOXIDE 29 mmol/L (21-33); CHLORIDE 98 mmol/L (98-107); GFR AFRICAN-AMERICAN > 60; GLUCOSE,RANDOM 128 mg/dL (70-110); MAGNESIUM 1.7 mg/dL (1.7-2.2); PHOSPHOROUS 3.2 mg/dL (2.5-4.5); POTASSIUM 3.8 mmol/L (3.6-5.0); SODIUM 134 mmol/L (132-148); TOTAL PROTEIN 5.7 g/dL (5.8-8.3)
--- NOTE | 2017-03-28 08:20 | CARD ---
APPROVED REPORT EKG Measurement Heart [id number] <Conclusion> Atrial fibrillation Low voltage QRS limb leads Nonspecific intraventricular conduction delay STTW changes c/w ischemia No change
--- NOTE | 2017-03-28 10:05 | CP.PCM.PN ---
Subjective - Date & Time of Evaluation Date of Evaluation: 03/28/17 Time of Evaluation: 10:00 - Subjective Subjective: Mr Sparrow is known to our department. He was on radiation therapy. We were contacted by Dr Haynes yesterday late morning. We were informed that the patient developed a pathologic fracture during his physical therapy, and was going to the OR for cameron placement today. We informed Dr Haynes that we would be holding his RT for now given the events. Objective - Vital Signs/Intake and Output Vital Signs (last 24 hours): Temp Pulse Resp BP Pulse Ox 98.5 F 67 20 141/82 97 03/28/17 07:30 03/28/17 07:30 03/28/17 07:30 03/28/17 07:30 03/28/17 07:30 Intake and Output: 03/28/17 03/28/17 06:59 18:59 Intake Total 480 Output Total 800 Balance -320 - Medications Medications: Current Medications Atenolol (Tenormin) 50 mg PO DAILY [facility] Last Admin: 03/28/17 09:18 Dose: 50 mg Docusate Sodium (Colace) 100 mg PO BID [facility] Last Admin: 03/28/17 09:12 Dose: 100 mg Enoxaparin Sodium (Lovenox) 80 mg SC Q12H [facility] PRN Reason: Protocol Stop: 03/28/17 22:00 Last Admin: 03/28/17 09:11 Dose: 80 mg Fentanyl (Duragesic) 1 patch TD Q72H [facility] Last Admin: 03/28/17 01:59 Dose: 1 patch Hydromorphone HCl (Dilaudid) 1 mg IVP Q4H PRN PRN Reason: Pain, severe (8-10) Last Admin: 03/27/17 14:54 Dose: 1 mg Vancomycin HCl (Vancomycin 1gm) 1 gm in 250 mls @ 167 mls/hr IVPB ONCE ONE PRN Reason: Protocol Stop: 03/29/17 08:29 Ketorolac Tromethamine (Toradol) 15 mg IVP Q6 PRN PRN Reason: Pain, moderate (4-7) Last Admin: 03/27/17 06:07 Dose: 15 mg Losartan Potassium (Cozaar) 50 mg PO DAILY [facility] Last Admin: 03/28/17 09:12 Dose: 50 mg Meclizine HCl (Antivert) 25 mg PO Q6 PRN PRN Reason: Dizziness Last Admin: 03/16/17 12:26 Dose: 25 mg Ondansetron HCl (Zofran Inj) 4 mg IVP Q4H PRN PRN Reason: Nausea/Vomiting Last Admin: 03/16/17 10:51 Dose: 4 mg Oxycodone HCl (Oxycodone Immediate Release Tab) 10 mg PO Q4H PRN PRN Reason: Pain, severe (8-10) Last Admin: 03/28/17 09:12 Dose: 10 mg Pantoprazole Sodium (Protonix Ec Tab) 40 mg PO 0600 [facility] Last Admin: 03/28/17 05:41 Dose: 40 mg - Labs Labs: 03/28/17 06:00 03/28/17 06:00 PT 31.8 Seconds (9.9-11.8) H* 03/28/17 06:00 INR 2.94 (0.93-1.08) H 03/28/17 06:00 APTT 39.1 Seconds (23.7-30.8) H 03/27/17 11:30
--- NOTE | 2017-03-28 11:57 | PN ---
DATE: 03/28/2017 SUBJECTIVE: The patient is comfortable in bed, in no acute distress. Complaining of lower abdominal pain. No nausea, no vomiting. He is awake, alert, and oriented. Oral intake is good. He underwent left hip surgery for fracture in the left femur. REVIEW OF SYSTEMS: As per HPI. Rest of 12-point review of systems reviewed and negative. PHYSICAL EXAMINATION GENERAL: Comfortable in bed, in no acute distress. VITAL SIGNS: Temperature 98.6, heart rate is 80 per minute, blood pressure 130/70, respiratory rate 16 per minute, oxygen saturation 98% on room air. HEENT: Normal. No pallor. NECK: No lymphadenopathy. CHEST: Air entry present and equal bilaterally. No added sound. CARDIOVASCULAR: S1 and S2 normal. No murmur, no gallop. ABDOMEN: Soft and nontender. No hepatosplenomegaly. EXTREMITIES: No edema. CENTRAL NERVOUS SYSTEM: Alert and oriented x3. No focal, sensory, or motor deficit. LABORATORY DATA: Reviewed. MEDICATIONS: Reviewed. ASSESSMENT: 1. Stage IV renal cancer. 2. Pathological fracture, left femur. 3. Prosthetic aortic valve, on anticoagulation. PLAN: He is currently on fentanyl patch and Dilaudid, pain is controlled with that. I will contact the sister in [place] for definitive treatment of renal cancer. He is noncompliant, cannot come to the office and his has chronic alcohol problem. [employer] were contacted regarding his social issues. Currently, on full anticoagulation with Lovenox 80 mg subcu q. 12. Thank you Dr. Doyle for allowing us to participate in Mr. Sparrow's care. Elayne Bal MD
--- NOTE | 2017-03-28 15:53 | PN ---
DATE: 03/28/2017 LOCATION: Room 563, bed 1. First day postop, he feels much less pain in the left femur fracture, secured with intramedullary cameron, pain in his femoral head and neck. We will get him out of bed today, and he can even put weight on his left leg. His hemoglobin is stable in the mid 9 hemoglobin and we will follow tomorrow with another CBC. Delfino Haynes DO
--- NOTE | 2017-03-28 17:47 | PN ---
DATE: REASON FOR CONSULTATION AND FOLLOWUP: Preop followup and postop followup status post hip surgery for pathological fracture, metastatic bone lesion from renal cell cancer, history of coronary reimplantation, history of AVR, mechanical prosthesis. SUBJECTIVE: The patient denies any chest pain, shortness of breath, or any palpitation, status post ORIF yesterday. OBJECTIVE: GENERAL: Lying flat in the bed, not in apparent distress. VITAL SIGNS: Temperature afebrile, heart rate is 67, blood pressure 141/82. HEENT: PERRLA. Extraocular muscles intact. NECK: Supple. No carotid bruits. No thyromegaly. CHEST: Clear to auscultation. HEART: S1 and S2 regular. ABDOMEN: Soft. EXTREMITIES: Clubbing and cyanosis negative. LABORATORY DATA: Blood workup as follows: WBC 6.8, hemoglobin 9.1, hematocrit 27.6, platelet count 161. Chemistry shows sodium 134, potassium 3.8, chloride 90, carbon dioxide 29, anion gap of 11, BUN 18, creatinine 0.8. INR 2.94. IMPRESSION: A 66-year-old male with past medical history significant for coronary artery disease, severe aortic regurgitation, history of alcohol abuse, chronic atrial fibrillation, status post open heart at [facility] on 06/15/1992 with [employer] mechanical valve conduit placed, admitted with pathological fracture of left hip and metastasis of renal cell carcinoma stage IV. Yesterday, the patient underwent open reduction internal fixation of left hip. The patient denies any chest pain, shortness of breath, or any palpitation. Left knee near operative site , little bit oozing blood. INR is 2.94. RECOMMENDATIONS: We will discontinue Lovenox, INR is therapeutic. We will hold Coumadin. Repeat INR tomorrow. Depending upon INR dose tomorrow, we will restart Coumadin. We will follow with you. Continue atenolol 50 mg b.i.d. Continue losartan. We will put p.r.n. hydralazine if blood pressure remains elevated. We will get blood workup tomorrow. Thank you Dr. Doyle/Dr. Haynes for providing us the opportunity in taking care of the patient, [place]. Yoni Garcia MD MTDSelma
[2017-03-29] MEDS: oxyCODONE 10 mg Immediate Release Tab PO PRN ×2 (04:19→09:30)
[2017-03-29] MEDS: Pantoprazole 40 mg EC Tab PO SCH (06:20)
[2017-03-29 06:29] LABS: BASO # 0.01 K/mm3 (0.0-2.0); BASO % 0.2 % (0.0-3.0); EOS # 0.1 (0.0-0.7); EOS % 1.6 % (1.5-5.0); GRAN # 5.21 (1.4-6.5); GRAN % 81.3 % (50.0-68.0); HEMATOCRIT 25.5 % (42.0-52.0); LYMPH # 0.5 (1.2-3.4); MEAN CELL VOLUME 90.1 fl (80.0-105.0); MEAN CORPUSCULAR HEMOGLOBIN 30.4 pg (25.0-35.0); MEAN CORPUSCULAR HGB CONC 33.7 g/dl (31.0-37.0); MEAN PLATELET VOLUME 10.1 fl (7.0-11.0); MONO # 0.6 (0.1-0.6); MONO % 8.9 % (1.0-6.0); RED CELL DISTRIBUTION WIDTH 13.6 % (11.5-14.5); WHITE BLOOD COUNT 6.4 10^3/ul (4.5-11.0)
[2017-03-29 06:36] LABS: INR 2.35 (0.93-1.08)
[2017-03-29 06:53] LABS: ALB/GLOB RATIO 1.3 (1.1-1.8); ALKALINE PHOSPHATASE 68 U/L (38-126); ALT/SGPT 28 U/L (7-56); AST/SGOT 25 U/L (17-59); BLOOD UREA NITROGEN 15 mg/dL (7-21); CALCIUM 8.3 mg/dL (8.4-10.5); CARBON DIOXIDE 28 mmol/L (21-33); CHLORIDE 97 mmol/L (98-107); GFR AFRICAN-AMERICAN > 60; GLUCOSE,RANDOM 132 mg/dL (70-110); MAGNESIUM 1.8 mg/dL (1.7-2.2); PHOSPHOROUS 2.5 mg/dL (2.5-4.5); POTASSIUM 3.5 mmol/L (3.6-5.0); SODIUM 132 mmol/L (132-148); TOTAL PROTEIN 5.8 g/dL (5.8-8.3)
[2017-03-29] MEDS ORDERED: Vancomycin 1gm in NS 250ml 1 GM/250 ML BAG IVPB ONE (07:00)
[2017-03-29] MEDS ORDERED: Potassium Chloride 20 mEq ER Tab PO ONE (10:06)
--- NOTE | 2017-03-29 11:18 | CP.PCM.PN ---
Subjective - Date & Time of Evaluation Date of Evaluation: 03/29/17 Time of Evaluation: 11:00 - Subjective Subjective: c/o pain L hip, unable to weight-bear Objective - Vital Signs/Intake and Output Vital Signs (last 24 hours): Temp Pulse Resp BP Pulse Ox 98.4 F 82 20 114/76 94 L 03/29/17 08:02 03/29/17 09:31 03/29/17 08:02 03/29/17 09:31 03/29/17 08:02 Intake and Output: 03/29/17 03/29/17 06:59 18:59 Intake Total 540 Output Total 600 Balance -60 - Medications Medications: Current Medications Atenolol (Tenormin) 50 mg PO DAILY [facility] Last Admin: 03/29/17 09:30 Dose: 50 mg Docusate Sodium (Colace) 100 mg PO BID [facility] Last Admin: 03/29/17 09:30 Dose: 100 mg Fentanyl (Duragesic) 1 patch TD Q72H [facility] Last Admin: 03/28/17 01:59 Dose: 1 patch Hydralazine HCl (Apresoline) 10 mg PO QID PRN PRN Reason: [id number] [id number] Hydromorphone HCl (Dilaudid) 1 mg IVP Q4H PRN PRN Reason: Pain, severe (8-10) Last Admin: 03/27/17 14:54 Dose: 1 mg Ketorolac Tromethamine (Toradol) 15 mg IVP Q6 PRN PRN Reason: Pain, moderate (4-7) Last Admin: 03/27/17 06:07 Dose: 15 mg Losartan Potassium (Cozaar) 50 mg PO DAILY [facility] Last Admin: 03/29/17 09:31 Dose: 50 mg Meclizine HCl (Antivert) 25 mg PO Q6 PRN PRN Reason: Dizziness Last Admin: 03/16/17 12:26 Dose: 25 mg Ondansetron HCl (Zofran Inj) 4 mg IVP Q4H PRN PRN Reason: Nausea/Vomiting Last Admin: 03/16/17 10:51 Dose: 4 mg Oxycodone HCl (Oxycodone Immediate Release Tab) 10 mg PO Q4H PRN PRN Reason: Pain, severe (8-10) Last Admin: 03/29/17 09:30 Dose: 10 mg Pantoprazole Sodium (Protonix Ec Tab) 40 mg PO 0600 [facility] Last Admin: 03/29/17 06:20 Dose: 40 mg Warfarin Sodium (Coumadin) 5 mg PO 1800 [facility] PRN Reason: Protocol - Labs Labs: 03/29/17 06:00 03/29/17 06:00 PT 25.4 Seconds (9.9-11.8) H 03/29/17 06:00 INR 2.35 (0.93-1.08) H 03/29/17 06:00 APTT 39.1 Seconds (23.7-30.8) H 03/27/17 11:30 - Respiratory Exam Respiratory Exam: Clear to Ausculation Bilateral, NORMAL BREATHING PATTERN - Cardiovascular Exam Cardiovascular Exam: REGULAR RHYTHM - GI/Abdominal Exam GI & Abdominal Exam: Normal Bowel Sounds - Extremities Exam Additional comments: L hip dressing clean/intact Assessment and Plan (1) Small bowel obstruction Status: Resolved (2) Aortic valve replaced Status: Chronic (3) Atrial fibrillation Status: Chronic (4) Metastatic renal cell carcinoma Status: Chronic (5) Intractable pain Assessment & Plan: continue post-op mgmt, monitor hb/Hct, lytes, K ordered Status: Acute (6) Hypertension Status: Chronic (7) Pathologic hip fracture Status: Acute
--- NOTE | 2017-03-29 14:03 | RAD ---
PROCEDURE: Fluoroscopy up to 1 hr. HISTORY: O.R.I.F. FX. LEFT FEMUR COMPARISON: None TECHNIQUE: Standard protocol for this study/examination. FINDINGS: Total fluoroscopic time (continuous mode) utilized during the procedure: 178.2 seconds. Submitted images from the current procedure: 7.0 IMPRESSION: Less than 1 hr fluoroscopic time utilized during performance of the procedure.
--- NOTE | 2017-03-29 14:38 | PN ---
DATE: Room 562, bed 1. REASON FOR CONSULTATION AND FOLLOWUP: Preop and postop evaluation for hip fracture, pathological fracture due to metastatic disease from renal cell carcinoma, history of coronary artery bypass with reimplantation, history of AVR, mechanical prosthetic aortic valve. SUBJECTIVE: The patient is lying flat in the bed, complaining hip area pain. Denies any chest pain, shortness of breath, or palpitations. PHYSICAL EXAMINATION VITAL SIGNS: Blood pressure 114/76, respirations 20, pulse 82, temperature 98.4. HEENT: Head is normocephalic. Eyes; pupil normal, conjunctivae are slightly pale. NECK: JVP low, carotids are equal. Thorax AP diameter is normal. LUNGS: Clear. CARDIOVASCULAR: S1 and S2, mechanical prosthetic valve sound, systolic murmur, no rub. ABDOMEN: Soft, nontender. No organomegaly. Bowel sounds are normal. EXTREMITIES: No clubbing, no cyanosis. LABORATORY DATA: WBC 6.4, hemoglobin 8.6, hematocrit 25.5, platelets 154. Sodium 132, potassium 3.5, BUN 15, creatinine 0.9. Random glucose 132, calcium 8.3, phosphorus 2.5, AST and ALT normal, total protein and albumin normal. DIAGNOSES: Coronary artery disease, severe aortic regurgitation, status post open heart at [facility] on June 15, 1992 with [employer] Mechanical valve conduit placed and implantation of coronary arteries. Pathological fracture left hip due to metastatic disease from renal cell carcinoma stage IV. Status post open reduction and internal fixation of left hip. PLAN: The patient's prothrombin time is 25.4, INR 2.35. The patient is on Cozaar 50 mg daily, Protonix 40 daily, atenolol 50 mg daily, restart warfarin 5 mg p.o. daily, potassium is low, so we will give potassium. I will repea CBC and SMA-7 in the morning. We will also check PT/INR in the morning. We will give K-Dur 40 mEq p.o. now. We will follow. Yoni Steel MD cc:
[2017-03-30] MEDS: HYDROmorphone 1 mg/ml ISec IVP PRN ×5 (05:06→23:25)
[2017-03-30] MEDS: Pantoprazole 40 mg EC Tab PO SCH (05:11)
[2017-03-30 07:49] LABS: INR 2.32 (0.93-1.08)
[2017-03-30 07:56] LABS: BASO # 0.01 K/mm3 (0.0-2.0); BASO % 0.2 % (0.0-3.0); EOS # 0.1 (0.0-0.7); EOS % 2.2 % (1.5-5.0); GRAN # 5.12 (1.4-6.5); GRAN % 79.5 % (50.0-68.0); LYMPH # 0.6 (1.2-3.4); LYMPH % 8.9 % (22.0-35.0); MEAN CELL VOLUME 89.8 fl (80.0-105.0); MEAN CORPUSCULAR HEMOGLOBIN 31.4 pg (25.0-35.0); MEAN CORPUSCULAR HGB CONC 34.9 g/dl (31.0-37.0); MONO # 0.6 (0.1-0.6); MONO % 9.2 % (1.0-6.0); RED CELL DISTRIBUTION WIDTH 13.6 % (11.5-14.5); WHITE BLOOD COUNT 6.4 10^3/ul (4.5-11.0)
[2017-03-30 08:11] LABS: HEMATOCRIT 22.9 % (42.0-52.0)
[2017-03-30 08:27] LABS: ALB/GLOB RATIO 1.3 (1.1-1.8); ALKALINE PHOSPHATASE 67 U/L (38-126); ALT/SGPT 24 U/L (7-56); AST/SGOT 23 U/L (17-59); BILIRUBIN,TOTAL 0.9 mg/dL (0.2-1.3); BLOOD UREA NITROGEN 16 mg/dL (7-21); CALCIUM 8.4 mg/dL (8.4-10.5); CARBON DIOXIDE 28 mmol/L (21-33); CHLORIDE 96 mmol/L (98-107); GFR AFRICAN-AMERICAN > 60; GLUCOSE,RANDOM 133 mg/dL (70-110); POTASSIUM 4.6 mmol/L (3.6-5.0); SODIUM 131 mmol/L (132-148); TOTAL PROTEIN 5.7 g/dL (5.8-8.3)
--- NOTE | 2017-03-30 13:49 | PN ---
DATE: 03/30/2017 LOCATION: Room #562, bed #1. SUBJECTIVE: The patient is 2 days postop left femur fracture, pathologic; hemoglobin 3. The pain is much less. The dressing still has some oozing at the most distal incision for the locking of the cameron, but even this is less and clot is little better. He is on blood thinners for the heart and DVT prophylaxis. I reinforced dressing. Pain is much less and was still hesitant to mobilize. We will repeat the H and H tomorrow; if his hemoglobin is much low, we will transfuse him; otherwise, he is doing much better. The path report came back, is consistent with the renal carcinoma. Delfino Haynes DO
--- NOTE | 2017-03-30 14:01 | CP.PCM.PN ---
Subjective - Date & Time of Evaluation Date of Evaluation: 03/30/17 Time of Evaluation: 13:00 - Subjective Subjective: c/o pain L hip, unable to ambulate Objective - Vital Signs/Intake and Output Vital Signs (last 24 hours): Temp Pulse Resp BP Pulse Ox 98.3 F 78 19 131/88 95 03/30/17 07:41 03/30/17 07:41 03/30/17 07:41 03/30/17 09:32 03/30/17 07:41 Intake and Output: 03/30/17 03/30/17 06:59 18:59 Intake Total 780 Output Total 1200 Balance -420 - Medications Medications: Current Medications Atenolol (Tenormin) 50 mg PO DAILY [facility] Last Admin: 03/30/17 09:32 Dose: 50 mg Docusate Sodium (Colace) 100 mg PO BID [facility] Last Admin: 03/30/17 09:31 Dose: 100 mg Fentanyl (Duragesic) 1 patch TD Q72H [facility] Last Admin: 03/28/17 01:59 Dose: 1 patch Hydralazine HCl (Apresoline) 10 mg PO QID PRN PRN Reason: fotr [id number] Hydromorphone HCl (Dilaudid) 1 mg IVP Q4H PRN PRN Reason: Pain, severe (8-10) Last Admin: 03/30/17 09:46 Dose: 1 mg Losartan Potassium (Cozaar) 50 mg PO DAILY [facility] Last Admin: 03/30/17 09:31 Dose: 50 mg Meclizine HCl (Antivert) 25 mg PO Q6 PRN PRN Reason: Dizziness Last Admin: 03/29/17 17:10 Dose: 25 mg Oxycodone HCl (Oxycodone Immediate Release Tab) 10 mg PO Q4H PRN PRN Reason: Pain, severe (8-10) Last Admin: 03/29/17 09:30 Dose: 10 mg Pantoprazole Sodium (Protonix Ec Tab) 40 mg PO 0600 [facility] Last Admin: 03/30/17 05:11 Dose: Not Given Warfarin Sodium (Coumadin) 5 mg PO 1800 [facility] PRN Reason: Protocol Last Admin: 03/29/17 16:59 Dose: 5 mg - Labs Labs: 03/30/17 07:00 03/30/17 07:00 PT 25.1 Seconds (9.9-11.8) H 03/30/17 07:00 INR 2.32 (0.93-1.08) H 03/30/17 07:00 APTT 39.1 Seconds (23.7-30.8) H 03/27/17 11:30 - Respiratory Exam Respiratory Exam: Clear to Ausculation Bilateral, NORMAL BREATHING PATTERN - Cardiovascular Exam Cardiovascular Exam: REGULAR RHYTHM - GI/Abdominal Exam GI & Abdominal Exam: Soft, Normal Bowel Sounds - Neurological Exam Neurological Exam: Abnormal Gait, Alert, Awake - Skin Skin Exam: Dry, Warm Assessment and Plan (1) Small bowel obstruction Status: Resolved (2) Aortic valve replaced Status: Chronic (3) Atrial fibrillation Status: Chronic (4) Metastatic renal cell carcinoma Status: Chronic (5) Intractable pain Status: Acute (6) Hypertension Status: Chronic (7) Pathologic hip fracture Status: Acute - Assessment and Plan (Free Text) Plan: continue post-op care, PT, oncology , orthopedic follow-up, monitor Hb/Hct, lytes (sodium)
[2017-03-30] MEDS: oxyCODONE 10 mg Immediate Release Tab PO PRN (18:03)
[2017-03-31] MEDS: oxyCODONE 10 mg Immediate Release Tab PO PRN ×4 (00:25→19:53)
[2017-03-31] MEDS: HYDROmorphone 1 mg/ml ISec IVP PRN ×2 (04:18→21:48)
[2017-03-31] MEDS: Pantoprazole 40 mg EC Tab PO SCH (05:48)
[2017-03-31 07:21] LABS: INR 3.06 (0.93-1.08)
[2017-03-31 07:28] LABS: ALB/GLOB RATIO 1.2 (1.1-1.8); ALKALINE PHOSPHATASE 67 U/L (38-126); ALT/SGPT 27 U/L (7-56); AST/SGOT 24 U/L (17-59); BILIRUBIN,TOTAL 0.9 mg/dL (0.2-1.3); BLOOD UREA NITROGEN 16 mg/dL (7-21); CALCIUM 8.3 mg/dL (8.4-10.5); CARBON DIOXIDE 27 mmol/L (21-33); CHLORIDE 96 mmol/L (98-107); GFR AFRICAN-AMERICAN > 60; GLUCOSE,RANDOM 123 mg/dL (70-110); POTASSIUM 3.9 mmol/L (3.6-5.0); SODIUM 130 mmol/L (132-148); TOTAL PROTEIN 5.9 g/dL (5.8-8.3)
[2017-03-31 09:00] LABS: BASO # 0.01 K/mm3 (0.0-2.0); BASO % 0.2 % (0.0-3.0); EOS # 0.3 (0.0-0.7); EOS % 4.6 % (1.5-5.0); GRAN # 4.47 (1.4-6.5); GRAN % 76.4 % (50.0-68.0); LYMPH # 0.6 (1.2-3.4); LYMPH % 9.4 % (22.0-35.0); MEAN CELL VOLUME 90.2 fl (80.0-105.0); MEAN CORPUSCULAR HEMOGLOBIN 30.7 pg (25.0-35.0); MEAN CORPUSCULAR HGB CONC 34.1 g/dl (31.0-37.0); MEAN PLATELET VOLUME 10.2 fl (7.0-11.0); MONO # 0.6 (0.1-0.6); MONO % 9.4 % (1.0-6.0); RED CELL DISTRIBUTION WIDTH 13.6 % (11.5-14.5); WHITE BLOOD COUNT 5.9 10^3/ul (4.5-11.0)
[2017-03-31 09:02] LABS: HEMATOCRIT 22.9 % (42.0-52.0)
--- NOTE | 2017-03-31 12:22 | CP.PCM.PN ---
Subjective - Date & Time of Evaluation Date of Evaluation: 03/31/17 Time of Evaluation: 12:00 - Subjective Subjective: c/o pain L hip, unable to transfer/ambulate Objective - Vital Signs/Intake and Output Vital Signs (last 24 hours): Temp Pulse Resp BP Pulse Ox 98.7 F 67 18 117/69 96 03/31/17 07:00 03/31/17 07:00 03/31/17 07:00 03/31/17 07:00 03/31/17 07:00 - Medications Medications: Current Medications Atenolol (Tenormin) 50 mg PO DAILY [facility] Last Admin: 03/31/17 10:08 Dose: 50 mg Docusate Sodium (Colace) 100 mg PO BID [facility] Last Admin: 03/31/17 10:08 Dose: 100 mg Fentanyl (Duragesic) 1 patch TD Q72H [facility] Last Admin: 03/30/17 18:43 Dose: 1 patch Hydralazine HCl (Apresoline) 10 mg PO QID PRN PRN Reason: fotr [id number] Meclizine HCl (Antivert) 25 mg PO Q6 PRN PRN Reason: Dizziness Last Admin: 03/29/17 17:10 Dose: 25 mg Oxycodone HCl (Oxycodone Immediate Release Tab) 10 mg PO Q4H PRN PRN Reason: Pain, severe (8-10) Last Admin: 03/31/17 10:07 Dose: 10 mg Pantoprazole Sodium (Protonix Ec Tab) 40 mg PO 0600 [facility] Last Admin: 03/31/17 05:48 Dose: 40 mg Warfarin Sodium (Coumadin) 5 mg PO 1800 [facility] PRN Reason: Protocol Last Admin: 03/30/17 17:32 Dose: 5 mg - Labs Labs: 03/31/17 08:20 03/31/17 06:00 PT 33.0 Seconds (9.9-11.8) H* 03/31/17 06:00 INR 3.06 (0.93-1.08) H 03/31/17 06:00 APTT 39.1 Seconds (23.7-30.8) H 03/27/17 11:30 - Respiratory Exam Respiratory Exam: Clear to Ausculation Bilateral, NORMAL BREATHING PATTERN - Cardiovascular Exam Cardiovascular Exam: REGULAR RHYTHM - GI/Abdominal Exam GI & Abdominal Exam: Soft, Normal Bowel Sounds - Neurological Exam Neurological Exam: Alert, Awake - Skin Skin Exam: Dry, Warm Assessment and Plan (1) Small bowel obstruction Status: Resolved (2) Aortic valve replaced Status: Chronic (3) Atrial fibrillation Status: Chronic (4) Metastatic renal cell carcinoma Status: Chronic (5) Intractable pain Status: Acute (6) Hypertension Status: Chronic (7) Pathologic hip fracture Status: Acute (8) Hyponatremia Status: Acute - Assessment and Plan (Free Text) Plan: DC losartan due to hyponatremia, transfuse 2u PRBC's, continue PT & orthopedic f /u, SW for disposition
[2017-04-01] MEDS: oxyCODONE 10 mg Immediate Release Tab PO PRN ×4 (00:53→21:53)
[2017-04-01] MEDS: HYDROmorphone 1 mg/ml ISec IVP PRN ×2 (03:07→09:57)
[2017-04-01] MEDS: Pantoprazole 40 mg EC Tab PO SCH (05:33)
[2017-04-01 06:50] LABS: INR 3.01 (0.93-1.08)
[2017-04-01 06:52] LABS: BASO # 0.01 K/mm3 (0.0-2.0); BASO % 0.2 % (0.0-3.0); EOS # 0.3 (0.0-0.7); EOS % 4.7 % (1.5-5.0); GRAN # 4.86 (1.4-6.5); GRAN % 78.5 % (50.0-68.0); HEMATOCRIT 26.5 % (42.0-52.0); LYMPH # 0.4 (1.2-3.4); LYMPH % 6.9 % (22.0-35.0); MEAN CORPUSCULAR HEMOGLOBIN 30.6 pg (25.0-35.0); MEAN CORPUSCULAR HGB CONC 34.7 g/dl (31.0-37.0); MEAN PLATELET VOLUME 9.6 fl (7.0-11.0); MONO # 0.6 (0.1-0.6); MONO % 9.7 % (1.0-6.0); RED CELL DISTRIBUTION WIDTH 13.9 % (11.5-14.5); WHITE BLOOD COUNT 6.2 10^3/ul (4.5-11.0)
[2017-04-01 07:01] LABS: ALB/GLOB RATIO 1.2 (1.1-1.8); ALKALINE PHOSPHATASE 69 U/L (38-126); ALT/SGPT 27 U/L (7-56); AST/SGOT 28 U/L (17-59); BILIRUBIN,TOTAL 2.1 mg/dL (0.2-1.3); BLOOD UREA NITROGEN 19 mg/dL (7-21); CALCIUM 8.6 mg/dL (8.4-10.5); CARBON DIOXIDE 28 mmol/L (21-33); CHLORIDE 95 mmol/L (98-107); GFR AFRICAN-AMERICAN > 60; GLUCOSE,RANDOM 132 mg/dL (70-110); POTASSIUM 4.1 mmol/L (3.6-5.0); SODIUM 129 mmol/L (132-148); TOTAL PROTEIN 6.1 g/dL (5.8-8.3)
--- NOTE | 2017-04-01 09:19 | CP.PCM.PN ---
Subjective - Date & Time of Evaluation Date of Evaluation: 04/01/17 Time of Evaluation: 09:00 - Subjective Subjective: c/o pain L hip Objective - Vital Signs/Intake and Output Vital Signs (last 24 hours): Temp Pulse Resp BP Pulse Ox 98.0 F 62 18 121/67 96 04/01/17 07:22 04/01/17 07:22 04/01/17 07:22 04/01/17 07:22 04/01/17 07:22 Intake and Output: 04/01/17 04/01/17 06:59 18:59 Intake Total 330 Output Total 700 800 Balance -370 -800 - Medications Medications: Current Medications Atenolol (Tenormin) 50 mg PO DAILY [facility] Last Admin: 03/31/17 10:08 Dose: 50 mg Docusate Sodium (Colace) 100 mg PO BID [facility] Last Admin: 03/31/17 18:25 Dose: 100 mg Fentanyl (Duragesic) 1 patch TD Q72H [facility] Last Admin: 03/30/17 18:43 Dose: 1 patch Hydralazine HCl (Apresoline) 10 mg PO QID PRN PRN Reason: fotr [id number] Hydromorphone HCl (Dilaudid) 1 mg IVP Q4H PRN PRN Reason: Pain, severe (8-10) Last Admin: 04/01/17 03:07 Dose: 1 mg Meclizine HCl (Antivert) 25 mg PO Q6 PRN PRN Reason: Dizziness Last Admin: 03/29/17 17:10 Dose: 25 mg Oxycodone HCl (Oxycodone Immediate Release Tab) 10 mg PO Q4H PRN PRN Reason: Pain, severe (8-10) Last Admin: 04/01/17 00:53 Dose: 10 mg Pantoprazole Sodium (Protonix Ec Tab) 40 mg PO 0600 [facility] Last Admin: 04/01/17 05:33 Dose: 40 mg Warfarin Sodium (Coumadin) 5 mg PO 1800 [facility] PRN Reason: Protocol Last Admin: 03/31/17 18:25 Dose: 5 mg - Labs Labs: 04/01/17 06:38 04/01/17 06:38 PT 32.5 Seconds (9.9-11.8) H* 04/01/17 06:38 INR 3.01 (0.93-1.08) H 04/01/17 06:38 APTT 39.1 Seconds (23.7-30.8) H 03/27/17 11:30 - Respiratory Exam Respiratory Exam: Clear to Ausculation Bilateral, NORMAL BREATHING PATTERN - Cardiovascular Exam Cardiovascular Exam: REGULAR RHYTHM - GI/Abdominal Exam GI & Abdominal Exam: Soft, Normal Bowel Sounds - Neurological Exam Neurological Exam: Alert, Awake - Skin Skin Exam: Dry, Warm Assessment and Plan (1) Small bowel obstruction Status: Resolved (2) Aortic valve replaced Status: Chronic (3) Atrial fibrillation Status: Chronic (4) Metastatic renal cell carcinoma Status: Chronic (5) Intractable pain Assessment & Plan: monitor hb/Hct s/p transfx PRBCs, monitor lytes, PT/ortho, onc/rad onc folllow- up Status: Acute (6) Hypertension Status: Chronic (7) Pathologic hip fracture Status: Acute (8) Hyponatremia Status: Acute
--- NOTE | 2017-04-01 11:23 | PN ---
DATE: 04/01/2017 LOCATION: Room 563, bed 1. SUBJECTIVE: The patient seems to be in less pain, but still complains of spasms over his left thigh. Hopefully, they will do radiation therapy on the right leg where he has lytic lesion, shaft, and the acetabulum. We will try our best to get him a better put weight on his leg, but we will see what therapy can do today. He had 2 units of packed cells yesterday. His hemoglobin is 9.2, now 26 hematocrit. Delfino Haynes DO
--- NOTE | 2017-04-01 12:58 | PN ---
DATE: 04/01/2017 LOCATION: The patient is in room 560, bed 1. REASON FOR CONSULTATION AND FOLLOWUP: Coronary artery disease status post coronary artery bypass surgery, reimplantation of the coronary, AVR, mechanical prosthetic aortic valve, and pathological fracture of hip. SUBJECTIVE: The patient is lying flat, complaining hip area pain. No chest pain, shortness of breath, or palpitations. PHYSICAL EXAMINATION VITAL SIGNS: Blood pressure of 121/67, respirations of 18, pulse of 62, and temperature of 98.0. HEENT: Head is normocephalic. Eyes; pupil normal and conjunctivae are slightly pale. NECK: JVP low and carotids are equal. Thorax AP diameter is normal. LUNGS: Clear. CARDIOVASCULAR: S1 and S2, prosthetic aortic sound, systolic murmur, and no rub. ABDOMEN: Soft and nontender. No organomegaly. EXTREMITIES: No clubbing and no cyanosis. LABORATORY DATA: WBC is 6.2, hemoglobin is 9.2, hematocrit is 26.5, and platelets are 187. Sodium is 129, potassium is 4.1, BUN is 19, and creatinine is 0.9. Random glucose is 132. AST and ALT are normal. Total protein and albumin are normal. DIAGNOSES: Coronary artery disease, severe aortic regurgitation, status post open heart surgery at [facility] on 06/15/1992 with [employer] valve replacement and implantation of coronary arteries. Pathological fracture left hip due to metastatic disease from renal cell carcinoma stage IV. Status post open reduction and internal fixation of left hip and anemia. The patient's prothrombin time is 32.5 and INR 3.01. PLAN: The patient has mechanical valve, so we can keep the INR around 3.5, so we will continue warfarin 5 mg daily, atenolol 50 mg daily, Protonix 40 mg daily, and oxycodone for pain p.r.n. The patient is getting Duragesic patch q. 72 hours. We will continue present therapy and we will follow with you. Yoni Steel MD
--- NOTE | 2017-04-01 23:29 | CP.PCM.PCO ---
Assessment & Plan - Assessment and Plan (Free Text) Assessment: spoke to sister, Ms. Crystal Sparrow. placement is being looked into. Prior auth with insurance initiated for kinase inhibitor PAZOPINIB for treatment of stage IV renal cancer.
[2017-04-02] MEDS: oxyCODONE 10 mg Immediate Release Tab PO PRN ×3 (01:54→16:55)
[2017-04-02] MEDS: Pantoprazole 40 mg EC Tab PO SCH (05:41)
[2017-04-02 06:51] LABS: BASO # 0.01 K/mm3 (0.0-2.0); BASO % 0.2 % (0.0-3.0); EOS # 0.3 (0.0-0.7); EOS % 4.4 % (1.5-5.0); GRAN # 4.71 (1.4-6.5); GRAN % 76.5 % (50.0-68.0); HEMATOCRIT 25.3 % (42.0-52.0); LYMPH # 0.5 (1.2-3.4); LYMPH % 8.8 % (22.0-35.0); MEAN CELL VOLUME 88.5 fl (80.0-105.0); MEAN CORPUSCULAR HEMOGLOBIN 30.8 pg (25.0-35.0); MEAN CORPUSCULAR HGB CONC 34.8 g/dl (31.0-37.0); MEAN PLATELET VOLUME 9.3 fl (7.0-11.0); MONO # 0.6 (0.1-0.6); MONO % 10.1 % (1.0-6.0); RED CELL DISTRIBUTION WIDTH 14.1 % (11.5-14.5); WHITE BLOOD COUNT 6.2 10^3/ul (4.5-11.0)
[2017-04-02 07:45] LABS: INR 3.8 (0.93-1.08)
[2017-04-02 08:05] LABS: ALB/GLOB RATIO 1.2 (1.1-1.8); ALKALINE PHOSPHATASE 67 U/L (38-126); ALT/SGPT 25 U/L (7-56); AST/SGOT 26 U/L (17-59); BILIRUBIN,TOTAL 1.3 mg/dL (0.2-1.3); BLOOD UREA NITROGEN 19 mg/dL (7-21); CALCIUM 8.4 mg/dL (8.4-10.5); CARBON DIOXIDE 27 mmol/L (21-33); CHLORIDE 96 mmol/L (98-107); GFR AFRICAN-AMERICAN > 60; GLUCOSE,RANDOM 141 mg/dL (70-110); POTASSIUM 3.7 mmol/L (3.6-5.0); SODIUM 130 mmol/L (132-148); TOTAL PROTEIN 5.7 g/dL (5.8-8.3)
--- NOTE | 2017-04-02 11:39 | PN ---
DATE: 04/02/2017 LOCATION: The patient is in room 563, bed 1. REASON FOR CONSULTATION: Coronary artery disease, status post coronary artery bypass surgery, reimplantation of the coronary vessel, AVR, mechanical prosthetic aortic valve placement, and pathological fracture of hip. SUBJECTIVE: The patient is lying flat in the bed without chest pain, shortness of breath, palpitations, complaining of hip area pain, complaining of some pain in the surgical site. PHYSICAL EXAMINATION VITAL SIGNS: Blood pressure 118/77, respirations 19, pulse 67, temperature 98.3. HEENT: Head is normocephalic. Eyes; pupil normal, conjunctivae are slightly pale. NECK: JVP low and carotids are equal. Thorax AP diameter is normal. LUNGS: Clear. CARDIOVASCULAR: S1 and S2, prosthetic aortic valve sounds, systolic murmur. No rub. ABDOMEN: Soft, nontender. No organomegaly. EXTREMITIES: No clubbing, no cyanosis. LABORATORY DATA: Prothrombin time is 41.0 and INR 3.80. DIAGNOSES: Coronary artery disease, severe aortic regurgitation, status post open heart surgery at [facility] on 06/15/1992 with [employer] valve replacement and implantation of coronary artery. Pathological fractured left hip due to metastatic disease from renal cell carcinoma stage IV, status post open reduction and internal fixation of left hip and anemia. Increased prothrombin time. PLAN: To hold Coumadin today and repeat PT and INR tomorrow morning. In the meantime, we will continue the medications, atenolol 50 daily, Protonix 40 daily, and pain medications. We will follow with you. Yoni Steel MD
--- NOTE | 2017-04-02 14:19 | CP.PCM.PN ---
Subjective - Date & Time of Evaluation Date of Evaluation: 04/02/17 Time of Evaluation: 14:00 - Subjective Subjective: c/o pain L hip, unable to weight-bear Objective - Vital Signs/Intake and Output Vital Signs (last 24 hours): Temp Pulse Resp BP Pulse Ox 98.3 F 67 19 118/77 96 04/02/17 07:30 04/02/17 07:30 04/02/17 07:30 04/02/17 07:30 04/02/17 07:30 Intake and Output: 04/02/17 04/02/17 06:59 18:59 Intake Total 1060 420 Output Total 1325 200 Balance -265 220 - Medications Medications: Current Medications Atenolol (Tenormin) 50 mg PO DAILY [facility] Last Admin: 04/02/17 10:34 Dose: 50 mg Fentanyl (Duragesic) 1 patch TD Q72H [facility] Last Admin: 03/30/17 18:43 Dose: 1 patch Hydralazine HCl (Apresoline) 10 mg PO QID PRN PRN Reason: fotr [id number] Hydromorphone HCl (Dilaudid) 1 mg IVP Q4H PRN PRN Reason: Pain, severe (8-10) Last Admin: 04/01/17 09:57 Dose: 1 mg Meclizine HCl (Antivert) 25 mg PO Q6 PRN PRN Reason: Dizziness Last Admin: 04/02/17 05:40 Dose: 25 mg Oxycodone HCl (Oxycodone Immediate Release Tab) 10 mg PO Q4H PRN PRN Reason: Pain, severe (8-10) Last Admin: 04/02/17 10:34 Dose: 10 mg Pantoprazole Sodium (Protonix Ec Tab) 40 mg PO 0600 [facility] Last Admin: 04/02/17 05:41 Dose: 40 mg - Labs Labs: 04/02/17 06:39 04/02/17 06:39 PT 41.0 Seconds (9.9-11.8) H* 04/02/17 06:39 INR 3.80 (0.93-1.08) H* 04/02/17 06:39 APTT 39.1 Seconds (23.7-30.8) H 03/27/17 11:30 - Respiratory Exam Respiratory Exam: Clear to Ausculation Bilateral, NORMAL BREATHING PATTERN - Cardiovascular Exam Cardiovascular Exam: REGULAR RHYTHM - GI/Abdominal Exam GI & Abdominal Exam: Soft, Normal Bowel Sounds - Neurological Exam Neurological Exam: Alert, Awake - Skin Skin Exam: Dry, Warm Assessment and Plan (1) Small bowel obstruction Status: Resolved (2) Aortic valve replaced Status: Chronic (3) Atrial fibrillation Status: Chronic (4) Metastatic renal cell carcinoma Status: Chronic (5) Intractable pain Status: Acute (6) Hypertension Status: Chronic (7) Pathologic hip fracture Status: Acute (8) Hyponatremia Status: Acute - Assessment and Plan (Free Text) Plan: continue present rx/SW for disposition, hold warfarin elevated INR
[2017-04-02] MEDS: HYDROmorphone 1 mg/ml ISec IVP PRN (22:41)
[2017-04-03] MEDS: Pantoprazole 40 mg EC Tab PO SCH (07:00)
[2017-04-03] MEDS: oxyCODONE 10 mg Immediate Release Tab PO PRN ×3 (09:12→21:23)
[2017-04-03 09:41] LABS: INR 3.6 (0.93-1.08)
--- NOTE | 2017-04-03 12:39 | CP.PCM.PN ---
Subjective - Date & Time of Evaluation Date of Evaluation: 04/03/17 Time of Evaluation: 13:00 - Subjective Subjective: c/o pain L hip, remains unable to weight-bear, c/o loose BMs, non-bloody, no abd pain, no N/V Objective - Vital Signs/Intake and Output Vital Signs (last 24 hours): Temp Pulse Resp BP Pulse Ox 97.8 F 73 20 112/74 96 04/03/17 07:00 04/03/17 09:11 04/03/17 07:00 04/03/17 09:11 04/03/17 07:00 Intake and Output: 04/03/17 04/03/17 06:59 18:59 Intake Total 880 Output Total 1750 Balance -870 - Medications Medications: Current Medications Atenolol (Tenormin) 50 mg PO DAILY [facility] Last Admin: 04/03/17 09:11 Dose: 50 mg Fentanyl (Duragesic) 1 patch TD Q72H [facility] Last Admin: 04/02/17 18:22 Dose: 1 patch Hydralazine HCl (Apresoline) 10 mg PO QID PRN PRN Reason: fotr [id number] Hydromorphone HCl (Dilaudid) 1 mg IVP Q4H PRN PRN Reason: Pain, severe (8-10) Last Admin: 04/02/17 22:41 Dose: 1 mg Meclizine HCl (Antivert) 25 mg PO Q6 PRN PRN Reason: Dizziness Last Admin: 04/02/17 05:40 Dose: 25 mg Oxycodone HCl (Oxycodone Immediate Release Tab) 10 mg PO Q4H PRN PRN Reason: Pain, severe (8-10) Last Admin: 04/03/17 09:12 Dose: 10 mg Pantoprazole Sodium (Protonix Ec Tab) 40 mg PO 0600 [facility] Last Admin: 04/03/17 07:00 Dose: 40 mg - Labs Labs: 04/02/17 06:39 04/02/17 06:39 PT 38.9 Seconds (9.9-11.8) H* 04/03/17 09:00 INR 3.60 (0.93-1.08) H* 04/03/17 09:00 APTT 39.1 Seconds (23.7-30.8) H 03/27/17 11:30 - Respiratory Exam Respiratory Exam: Clear to Ausculation Bilateral, NORMAL BREATHING PATTERN - Cardiovascular Exam Cardiovascular Exam: REGULAR RHYTHM - GI/Abdominal Exam GI & Abdominal Exam: Normal Bowel Sounds - Neurological Exam Neurological Exam: Abnormal Gait, Alert, Awake - Skin Skin Exam: Dry, Warm Assessment and Plan (1) Small bowel obstruction Status: Resolved (2) Aortic valve replaced Status: Chronic (3) Atrial fibrillation Status: Chronic (4) Metastatic renal cell carcinoma Status: Chronic (5) Intractable pain Status: Acute (6) Hypertension Status: Chronic (7) Pathologic hip fracture Status: Acute (8) Hyponatremia Status: Acute (9) Diarrhea Status: Acute - Assessment and Plan (Free Text) Plan: continue RT, orthopedic f/u, check stool C&S, Cdiff, monitor lytes, Hb/Hct
--- NOTE | 2017-04-03 14:00 | PN ---
DATE: 04/03/2017 LOCATION: The patient is in room #560, bed #1. REASON FOR CONSULTATION: Followup coronary artery disease, status post coronary artery reimplant with aortic valve replacement with the mechanical prosthetic aortic valve; pathological fracture of hip, status post surgery. SUBJECTIVE: The patient is lying flat in bed without any cardiac symptoms of chest pain, shortness of breath, or palpitation. PHYSICAL EXAMINATION: VITAL SIGNS: Blood pressure 112/74, respirations of 20, pulse of 73, and temperature of 97.8. HEENT: Head is normocephalic. Eyes: Pupils normal. Conjunctivae slightly pale. NECK: JVP low. Carotids are equal. THORAX: AP diameter is normal. LUNGS: No rales. CARDIOVASCULAR: S1 and S2. Prosthetic aortic valve sound with systolic murmur, grade 2/6. No rub. ABDOMEN: Soft and nontender. No organomegaly. Bowel sounds are normal. EXTREMITIES: No clubbing and no cyanosis. LABORATORY DATA: WBC is 6.2, hemoglobin is 8.8, hematocrit is 25.3, and platelets are 204. Sodium is 130, potassium is 3.7, BUN is 19, and creatinine is 0.9. Random glucose is 141. AST and ALT are normal. Total protein 5.7, albumin 3.1. DIAGNOSES: Coronary artery disease, severe aortic regurgitation, status post open heart surgery at [facility] on 06/15/1992 with [employer] Mechanical valve replacement and implantation of coronary arteries; pathological fracture of left hip due to metastatic disease from renal cell carcinoma, stage IV, status post open reduction and internal fixation of left hip; anemia. PLAN: Today's prothrombin time is 38.9 with INR 3.60. Coumadin is on hold. We will repeat PT/INR in the morning. The patient is on atenolol 50 p.o. daily. We will follow with you. Yoni Steel MD
--- NOTE | 2017-04-03 18:49 | PN ---
LOCATION: In room #563, bed #1. SUBJECTIVE: The patient is ready for discharge to [facility]. His left hip is doing fine, still weak. The wounds are dry. I just wanted to make sure that people at the rehab hospital know that he has a lytic lesion of his right femur without pain, but eventually that may fracture, but there will be less chance of fracture if the radiation could kill the tumor and then it will be much more secure. He also has a supra acetabular lesion at the right hip that is not causing pain at this time, but the left hip has been fixed with an intramedullary cameron to stabilize it and to help the pain, which it has done, so he can get out of bed at least. I will follow him closely. The surgery was about a week ago at [facility]. Delfino Haynes DO
[2017-04-04] MEDS: oxyCODONE 10 mg Immediate Release Tab PO PRN ×4 (05:51→19:31)
[2017-04-04] MEDS: Pantoprazole 40 mg EC Tab PO SCH (05:51)
[2017-04-04 06:47] LABS: BASO # 0.01 K/mm3 (0.0-2.0); BASO % 0.1 % (0.0-3.0); EOS # 0.4 (0.0-0.7); EOS % 5.4 % (1.5-5.0); GRAN # 5.4 (1.4-6.5); GRAN % 77.2 % (50.0-68.0); HEMATOCRIT 27.2 % (42.0-52.0); LYMPH # 0.5 (1.2-3.4); LYMPH % 6.4 % (22.0-35.0); MEAN CELL VOLUME 88.9 fl (80.0-105.0); MEAN CORPUSCULAR HEMOGLOBIN 30.4 pg (25.0-35.0); MEAN CORPUSCULAR HGB CONC 34.2 g/dl (31.0-37.0); MEAN PLATELET VOLUME 9.5 fl (7.0-11.0); MONO # 0.8 (0.1-0.6); MONO % 10.9 % (1.0-6.0); RED CELL DISTRIBUTION WIDTH 13.9 % (11.5-14.5)
[2017-04-04 06:50] LABS: INR 1.94 (0.93-1.08)
[2017-04-04 06:51] LABS: ALB/GLOB RATIO 1.2 (1.1-1.8); ALKALINE PHOSPHATASE 73 U/L (38-126); ALT/SGPT 36 U/L (7-56); AST/SGOT 28 U/L (17-59); BILIRUBIN,TOTAL 1.5 mg/dL (0.2-1.3); BLOOD UREA NITROGEN 19 mg/dL (7-21); CALCIUM 8.9 mg/dL (8.4-10.5); CARBON DIOXIDE 28 mmol/L (21-33); CHLORIDE 96 mmol/L (95-110); GFR AFRICAN-AMERICAN > 60; GLUCOSE,RANDOM 121 mg/dL (70-110); POTASSIUM 3.6 mmol/L (3.6-5.0); SODIUM 133 mmol/L (132-148)
--- NOTE | 2017-04-04 12:31 | CP.PCM.PN ---
Subjective - Date & Time of Evaluation Date of Evaluation: 04/04/17 Time of Evaluation: 12:30 - Subjective Subjective: Mr Sparrow is known to our department. He was on palliative radiation therapy, but then developed a pathologic fracture of his left femur. He underwent surgery last week. We resumed his radiation therapy this week. He finished his radiation therapy yesterday. A follow up appointment was given to him. As per the notes, he is going to a rehab center. Objective - Vital Signs/Intake and Output Vital Signs (last 24 hours): Temp Pulse Resp BP Pulse Ox 98.1 F 72 20 129/79 97 04/04/17 07:24 04/04/17 10:22 04/04/17 07:24 04/04/17 10:22 04/04/17 07:24 Intake and Output: 04/04/17 04/04/17 06:59 18:59 Intake Total 240 240 Output Total 450 200 Balance -210 40 - Medications Medications: Current Medications Atenolol (Tenormin) 50 mg PO DAILY [facility] Last Admin: 04/04/17 10:22 Dose: 50 mg Fentanyl (Duragesic) 1 patch TD Q72H [facility] Last Admin: 04/02/17 18:22 Dose: 1 patch Hydralazine HCl (Apresoline) 10 mg PO QID PRN PRN Reason: fotr [id number] Hydromorphone HCl (Dilaudid) 1 mg IVP Q4H PRN PRN Reason: Pain, severe (8-10) Last Admin: 04/02/17 22:41 Dose: 1 mg Meclizine HCl (Antivert) 25 mg PO Q6 PRN PRN Reason: Dizziness Last Admin: 04/04/17 10:35 Dose: 25 mg Oxycodone HCl (Oxycodone Immediate Release Tab) 10 mg PO Q4H PRN PRN Reason: Pain, severe (8-10) Last Admin: 04/04/17 10:22 Dose: 10 mg Pantoprazole Sodium (Protonix Ec Tab) 40 mg PO 0600 [facility] Last Admin: 04/04/17 05:51 Dose: 40 mg - Labs Labs: 04/04/17 06:00 04/04/17 06:00 PT 20.9 Seconds (9.9-11.8) H 04/04/17 06:00 INR 1.94 (0.93-1.08) H 04/04/17 06:00 APTT 39.1 Seconds (23.7-30.8) H 03/27/17 11:30
--- NOTE | 2017-04-04 14:21 | PN ---
DATE: 04/04/2017 LOCATION: The patient is in room 563, bed 1. REASON FOR CONSULTATION AND FOLLOWUP: Coronary artery disease status post coronary artery reimplant with aortic valve replacement with mechanical prosthetic aortic valve. Pathological fracture of hip status post surgery for hip fracture. SUBJECTIVE: The patient lying flat in bed without any cardiac symptoms. Denies any chest pain, shortness of breath, or palpitations. He still has pain in the hip area. PHYSICAL EXAMINATION VITAL SIGNS: Blood pressure of 129/79, respirations of 20, pulse of 66, and temperature of 98.1. HEENT: Head is normocephalic. Eyes: Pupils are normal. Conjunctivae are slightly pale. NECK: JVP low. Carotids are equal. Thorax: AP diameter is normal. LUNGS: No rales. CARDIOVASCULAR: S1 and S2. Prosthetic valve sounds, systolic murmur and no rub. ABDOMEN: Soft and nontender. No organomegaly. EXTREMITIES: No clubbing. No cyanosis. LABORATORY DATA: WBC of 7.0, hemoglobin of 9.3, hematocrit of 27.2, and platelets of 267. Sodium of 133, potassium of 3.6. BUN of 19, and creatinine of 0.8. Glucose of 121. Total bilirubin of 1.5. AST and ALT are normal. Total protein is 6.0. Albumin is 3.3. DIAGNOSES: 1. Coronary artery disease. 2. Severe aortic regurgitation. Status post open heart surgery at [facility] on 06/15/1992 with [employer] mechanical valve replacement and implantation of coronary artery. 3. Pathologic fracture of left hip due to metastatic disease from renal cell carcinoma stage IV status post open reduction and internal fixation of left hip. 4. Anemia. Today prothrombin time of 20.9 and INR of 1.94. Yesterday, prothrombin was 3.60. We will restart Coumadin 4 mg daily, prior the patient was on 5 mg and INR went above 3.5, so at this time, we will start 4 mg daily and continue atenolol 50 daily. Analgesics for pain. We will follow with you. Yoni Steel MD [facility] # [id number]
[2017-04-04 17:47] VITALS: BP 114/76; PULSE 66; RESP 18; TEMP 97.4; O2SAT 96
== END 2017-04-04 21:50 | DRG 210 ==
LOC: ED 10:51 → OBSVTOIN 15:39 → ERH 15:39 → INTOOBSV 15:39 → ERH 17:15 → 5RNO 18:15 → OBSVTOIN 03-16 13:45 → 5RNO 03-18 13:11 → UNDODISIN 03-19 12:46 → 5RNO 03-27 09:49
PROVIDERS: ADMIT Internal Medicine; ATTEND Internal Medicine
PROC: DP081ZZ Beam Radiation of Pelvic Bones using Photons 1 - 10 MeV (ICD-10-PCS; 2017-03-25)
PROC: 0QB70ZX Excision of Left Upper Femur, Open Approach, Diagnostic (ICD-10-PCS; 2017-03-27)
PROC: 30233K1 Transfusion of Nonautologous Frozen Plasma into Peripheral Vein, Percutaneous Approach (ICD-10-PCS; 2017-03-27)
PROC: 0QS706Z Reposition Left Upper Femur with Intramedullary Internal Fixation Device, Open Approach (ICD-10-PCS; principal; 2017-03-27 16:00)
PROC: 30233N1 Transfusion of Nonautologous Red Blood Cells into Peripheral Vein, Percutaneous Approach (ICD-10-PCS; 2017-03-31)
DX: C79.51 Secondary malignant neoplasm of bone (principal); M84.452A Pathological fracture, left femur, initial encounter for fracture; K56.609 Unspecified intestinal obstruction, unspecified as to partial versus complete obstruction; I13.0 Hypertensive heart and chronic kidney disease with heart failure and stage 1 through stage 4 chronic kidney disease, or unspecified chronic kidney disease; C78.00 Secondary malignant neoplasm of unspecified lung; I42.9 Cardiomyopathy, unspecified; I50.9 Heart failure, unspecified; E87.1 Hypo-osmolality and hyponatremia; J44.9 Chronic obstructive pulmonary disease, unspecified; N18.9 Chronic kidney disease, unspecified; I48.2 Chronic atrial fibrillation; G40.909 Epilepsy, unspecified, not intractable, without status epilepticus; I25.10 Atherosclerotic heart disease of native coronary artery without angina pectoris; Z66 Do not resuscitate; R26.2 Difficulty in walking, not elsewhere classified; D64.9 Anemia, unspecified; K21.9 Gastro-esophageal reflux disease without esophagitis; F10.10 Alcohol abuse, uncomplicated; F17.210 Nicotine dependence, cigarettes, uncomplicated; R29.6 Repeated falls; Z85.528 Personal history of other malignant neoplasm of kidney; Z79.01 Long term (current) use of anticoagulants; I25.2 Old myocardial infarction; Z91.19 Patient's noncompliance with other medical treatment and regimen; Z95.1 Presence of aortocoronary bypass graft; Z91.14 Patient's other noncompliance with medication regimen; Z90.5 Acquired absence of kidney; Z86.73 Personal history of transient ischemic attack (TIA), and cerebral infarction without residual deficits; Z95.2 Presence of prosthetic heart valve; Z91.81 History of falling; Z86.010 Personal history of colon polyps

== ENCOUNTER 2017-06-11 14:52 | Emergency (ER) | payer MEDICARE, OTHER ==
[2017-06-11 14:52] VITALS: PULSE 62; BMI 26.5
[2017-06-11 15:20] VITALS: RESP 18; TEMP 97.7
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
--- NOTE | 2017-06-11 16:24 | RAD ---
PROCEDURE: Left Knee Radiographs. HISTORY: Pain. COMPARISON: None. FINDINGS: BONES: Normal. No fracture. JOINTS: Normal. No osteoarthritis. JOINT EFFUSION: None. OTHER FINDINGS: None. IMPRESSION: Normal radiographs of the left knee.
[2017-06-11 16:46] LABS: BASO # 0.02 K/mm3 (0.0-2.0); BASO % 0.4 % (0.0-3.0); EOS # 0.3 (0.0-0.7); EOS % 5.4 % (1.5-5.0); GRAN # 3.97 (1.4-6.5); GRAN % 73.5 % (50.0-68.0); HEMATOCRIT 32.8 % (42.0-52.0); LYMPH # 0.7 (1.2-3.4); LYMPH % 13.5 % (22.0-35.0); MEAN CELL VOLUME 88.2 fl (80.0-105.0); MEAN CORPUSCULAR HEMOGLOBIN 29.3 pg (25.0-35.0); MEAN CORPUSCULAR HGB CONC 33.2 g/dl (31.0-37.0); MEAN PLATELET VOLUME 9.1 fl (7.0-11.0); MONO # 0.4 (0.1-0.6); MONO % 7.2 % (1.0-6.0); RED CELL DISTRIBUTION WIDTH 15.1 % (11.5-14.5); WHITE BLOOD COUNT 5.4 10^3/ul (4.5-11.0)
[2017-06-11 17:05] LABS: ALB/GLOB RATIO 1.4 (1.1-1.8); TOTAL PROTEIN 6.7 g/dL (5.8-8.3)
[2017-06-11 17:06] LABS: PH,URINE 6.5 (4.7-8.0); URINE BILIRUBIN NEGATIVE (NEGATIVE); URINE BLOOD NEGATIVE (NEGATIVE); URINE GLUCOSE (UA) NEGATIVE (NEGATIVE); URINE KETONE NEGATIVE (NEGATIVE); URINE LEUKOCYTE ESTERASE SMALL Leu/uL (NEGATIVE); URINE PROTEIN NEGATIVE mg/dL (<30 mg/dL); URINE UROBILINOGEN 0.2 E.U./dL (<1 E.U./dL)
[2017-06-11 17:08] LABS: ALKALINE PHOSPHATASE 99 U/L (38-126); ALT/SGPT 27 U/L (7-56); AST/SGOT 26 U/L (17-59); BILIRUBIN,TOTAL 0.4 mg/dL (0.2-1.3); BLOOD UREA NITROGEN 17 mg/dL (7-21); CALCIUM 9.6 mg/dL (8.4-10.5); CARBON DIOXIDE 25 mmol/L (21-33); CHLORIDE 98 mmol/L (98-107); GFR AFRICAN-AMERICAN > 60; GLUCOSE,RANDOM 106 mg/dL (70-110); POTASSIUM 4.3 mmol/L (3.6-5.0); SODIUM 134 mmol/L (132-148)
[2017-06-11 17:16] VITALS: O2SAT 98
[2017-06-11 17:23] LABS: URINE APPEARANCE CLEAR (CLEAR); URINE COLOR YELLOW (YELLOW)
[2017-06-11 17:29] LABS: INR 2.65 (0.93-1.08); PARTIAL THROMBOPLASTIN TIME 36.8 Seconds (25.1-36.5)
[2017-06-11] MEDS ORDERED: Lidocaine 1% Inj (20ml) IJ STA (17:31)
[2017-06-11] MEDS ORDERED: Lidocaine 1% Inj (20ml) ONE (17:31)
[2017-06-11 17:38] LABS: URINE RBC 0 - 2 /hpf (0-2)
[2017-06-11 18:15] LABS: FLUID TYPE SYNOVIAL FLUID
[2017-06-11 19:00] LABS: SYNOVIAL FLUID TOTAL COUNT 100 (0-0)
[2017-06-11 19:47] VITALS: BP 137/74; PULSE 76
--- NOTE | 2017-06-12 18:43 | US ---
PROCEDURE: Left lower extremity venous US HISTORY: Leg pain and swelling. Evaluate for DVT. PHYSICIAN(S): Mike Castellano MD. TECHNIQUE: Duplex sonography and color-flow Doppler with graded compression were used to evaluate the deep venous system of the left lower extremity. FINDINGS: The visualized deep venous system of the left lower extremity is sonographically normal and compressible. Normal wave forms and augmentation are seen. There is no sonographic evidence for deep venous thrombosis in the visualized segments of the left lower extremity. IMPRESSION: 1. No sonographic evidence for deep venous thrombosis in the visualized segments of the left lower extremity.
== END 2017-06-11 23:30 | disposition home or self-care (01) ==
LOC: ED 14:52
DX: M25.462 Effusion, left knee (principal); I48.91 Unspecified atrial fibrillation; I50.9 Heart failure, unspecified; J44.9 Chronic obstructive pulmonary disease, unspecified; Z79.01 Long term (current) use of anticoagulants; F17.210 Nicotine dependence, cigarettes, uncomplicated